=== PATIENT | male | born 1950 | race Caucasian/White ===

== ENCOUNTER 2017-05-06 18:57 | Observation (INO) ==
--- NOTE | 2017-05-06 19:36 | Emergency Department Note ---
Disposition Clinical Impression: Bradycardia, Exertional dyspnea, Intermittent chest pain Disposition: Admitted As Inpatient Condition: Good Referrals: NO,PCP [Non-Partnered Physician] - Forms: ED Satisfaction Letter Chest Pain HPI - General Chief Complaint: ED Chest Pain Stated Complaint: CP/Low Pulse Time Seen by Provider: 05/06/17 19:18 Source: patient, family Limitations: no limitations Vital Signs Reviewed: Yes Nursing Notes Reviewed: Yes - History of Present Illness HPI Narrative: 67-year-old male with a history of an enlarged prostate and borderline diabetes presents to the emergency department with a chief complaint of exertional dyspnea and intermittent chest pain. This has been progressive over the last month and has been significant limiting his ability to perform daily activities. Over the last month he has gotten to the point where even minor activity makes him very short of breath which is completely new. He has intermittent chest tightness without radiation that can occur at rest or with exertion. She denies any radiation of the symptoms. Denies any smoking history or history of COPD. Denies any history of cancer, lung disease or liver disease. Denies any history of blood clots. He reports weight gain and lower extremity swelling without pain over the last month as well. Denies any history of heart attack or heart disease. They checked his heart rate today and it was 37 according to his . His mother has history of heart disease and had to have a pacemaker. Patient states he feels generally weak but not unilaterally. Severity scale (1-10): 3 - Related Data Home Medications Medication Instructions Recorded Confirmed Terazosin HCl 10 mg PO HS 01/03/16 05/06/17 Allergies Allergy/AdvReac Type Severity Reaction Status Date / Time No Known Allergies Allergy Unverified 12/28/15 13:50 All systems ED: reviewed and negative except as stated. Constitutional: Denies: fever, chills Cardiovascular: Reports: chest pain, dyspnea on exertion. Denies: syncope Respiratory: Reports: dyspnea. Denies: cough Gastrointestinal: Denies: abdominal pain, nausea, vomiting Musculoskeletal: Denies: back pain, neck pain Neurological: Denies: headache, weakness, numbness Chest Pain PMH - Past Medical History Medical history: Reports: migraine, other Psychiatric history: Reports: no psych history - Social History Smoking Status: Never smoker Alcohol use: Reports: none Drug use: Reports: none Physical Exam Gen.: Obese male, resting comfortably in bed, talkative and appropriate Cardiovascular: Regular rate and rhythm. S1, S2. mild systolic ejection murmur. No rubs or gallops Respiratory: Breath sounds clear bilaterally. No wheezing, rales or rhonchi. No resp distress Abdomen: Soft, nontender. No guarding, rebound or rigidity. Normal bowel sounds throughout. Eyes: Conjunctiva clear HENT: No oral mucosal lesions. Moist mucous membranes Neuro: Cranial nerves intact. No motor or sensory deficit. Musculoskeletal: Bilateral lower extremity edema, 1+ lower extremities below the knees. There is no asymmetry or calf tenderness Skin: No lesions. No diaphoresis. Normal turgor. Normal color Psych: Appropriate - General Limitations: no limitations General appearance: alert, in no apparent distress Course Course Narrative: 67-year-old male presents with significant exertional dyspnea and chest pain over the last 1-2 months. No known history of coronary or lung disease. On exam he has bilateral lower extremity edema without asymmetry. Mild systolic murmur on exam. His reports checking his heart rate and has been in the 30s today. His mom is a history of CAD and pacemaker placement. EKG shows a heart rate of 56 without any acute changes. Chest x-ray clear. BNP and troponin are not elevated. Labs unremarkable. The concern at this time is symptomatic bradycardia. I discussed with the on-call hospitalist Dr. Bailey who requested d-dimer and this will be added on. Patient will be admitted for telemetry and further managment. Vital Signs Temperature 97.9 F 05/06/17 18:59 Pulse Rate 62 05/06/17 18:59 Respiratory Rate 18 05/06/17 18:59 Blood Pressure 149/77 05/06/17 18:59 O2 Sat by Pulse Oximetry 96 05/06/17 18:59 Temperature 97.9 F 05/06/17 18:59 Pulse Rate 58 05/06/17 20:19 Respiratory Rate 16 05/06/17 20:19 Blood Pressure 160/83 05/06/17 20:19 O2 Sat by Pulse Oximetry 94 05/06/17 20:19 Oxygen Delivery Oxygen Delivery Room Air Chest Pain - Lab Data Result diagrams: 05/06/17 19:42 05/06/17 19:42 Lab Results 05/06/17 05/06/17 05/06/17 Range/Units 19:42 19:42 19:42 WBC 7.2 (4.3-11.1) K/mcL RBC 4.21 (4.19-5.50) M/mcL Hgb 13.6 (12.9-16.9) g/dL Hct 39.5 (37.5-50.1) % MCV 93.8 (83.0-100.0) fL MCH 32.3 (28.0-33.3) pg MCHC 34.4 (31.6-35.5) g/dL RDW 13.3 (11.5-14.5) % Plt Count 159 (140-400) K/mcL MPV 9.8 (9.4-12.4) fL Immature Gran % 0.3 (0-4) % Seg Neutrophils % 61.6 % Lymphocytes % 27.8 % Monocytes % 7.3 % Eosinophils % 2.4 % Basophils % 0.6 % Neutrophils # 4.5 (1.6-8.9) K/mcL Lymphocytes # 2.0 (0.6-4.6) K/mcL Monocytes # 0.5 (0.0-1.3) K/mcL Eosinophils # 0.2 (0.0-0.6) K/mcL Basophils # 0.0 (0.0-0.2) K/mcL Sodium 143 (136-145) mEq/L Potassium 3.5 (3.5-4.5) mEq/L Chloride 109 (98-109) mEq/L Carbon Dioxide 25 (19-29) mEq/L BUN 19 (8-26) mg/dL Creatinine 0.93 (0.72-1.25) mg/dL Est GFR ( Amer) > 60 (> 60) Est GFR (Non-Af Amer) > 60 (> 60) BUN/Creatinine Ratio 20 (6-26) Glucose 89 (70-99) mg/dL Calculated Osmolality 298 (280-300) Calcium 9.0 (8.6-10.8) mg/dL Troponin I (0-0.03) ng/mL B-Natriuretic Peptide 31 (0-100) pg/mL TSH 1.450 (0.350-4.840) mcIU/mL 05/06/17 Range/Units 19:42 WBC (4.3-11.1) K/mcL RBC (4.19-5.50) M/mcL Hgb (12.9-16.9) g/dL Hct (37.5-50.1) % MCV (83.0-100.0) fL MCH (28.0-33.3) pg MCHC (31.6-35.5) g/dL RDW (11.5-14.5) % Plt Count (140-400) K/mcL MPV (9.4-12.4) fL Immature Gran % (0-4) % Seg Neutrophils % % Lymphocytes % % Monocytes % % Eosinophils % % Basophils % % Neutrophils # (1.6-8.9) K/mcL Lymphocytes # (0.6-4.6) K/mcL Monocytes # (0.0-1.3) K/mcL Eosinophils # (0.0-0.6) K/mcL Basophils # (0.0-0.2) K/mcL Sodium (136-145) mEq/L Potassium (3.5-4.5) mEq/L Chloride (98-109) mEq/L Carbon Dioxide (19-29) mEq/L BUN (8-26) mg/dL Creatinine (0.72-1.25) mg/dL Est GFR ( Amer) (> 60) Est GFR (Non-Af Amer) (> 60) BUN/Creatinine Ratio (6-26) Glucose (70-99) mg/dL Calculated Osmolality (280-300) Calcium (8.6-10.8) mg/dL Troponin I 0.01 (0-0.03) ng/mL B-Natriuretic Peptide (0-100) pg/mL TSH (0.350-4.840) mcIU/mL - Radiology Data KG shows sinus bradycardia with
[2017-05-06 19:59] LABS: Basophils % 0.6 %; Eosinophils # 0.2 K/mcL (0.0-0.6); Eosinophils % 2.4 %; Hematocrit 39.5 % (37.5-50.1); Hemoglobin 13.6 g/dL (12.9-16.9); Immature Granulocytes % 0.3 % (0-4); Lymphocytes % 27.8 %; Mean Corpuscular HGB Conc 34.4 g/dL (31.6-35.5); Mean Corpuscular Hemoglobin 32.3 pg (28.0-33.3); Mean Corpuscular Volume 93.8 fL (83.0-100.0); Mean Platelet Volume 9.8 fL (9.4-12.4); Monocytes # 0.5 K/mcL (0.0-1.3); Monocytes % 7.3 %; Neutrophils # 4.5 K/mcL (1.6-8.9); Platelet Count 159 K/mcL (140-400); Red Blood Count 4.21 M/mcL (4.19-5.50); Red Cell Distribution Width 13.3 % (11.5-14.5); Segmented Neutrophils % 61.6 %
[2017-05-06 20:06] LABS: BUN/Creatinine Ratio 20 (6-26); Blood Urea Nitrogen 19 mg/dL (8-26); Carbon Dioxide 25 mEq/L (19-29); Chloride 109 mEq/L (98-109); Glucose 89 mg/dL (70-99); Osmolality,Calculated 298 (280-300); Potassium 3.5 mEq/L (3.5-4.5); Sodium 143 mEq/L (136-145); eGFR For African Americans > 60 (> 60); eGFR For Non-African Americans > 60 (> 60)
--- NOTE | 2017-05-06 21:13 | Emergency Department Note ---
START Narrative - START START: I examined this patient and my medical decision-making was reviewed with the COMMISSION SALES ASSOCIATE/PA/Advanced Practice Nurse/Resident Physician. I agree with the documented findings, disposition and treatment plan as described except to the extent set forth below. ED attending note: Patient seen with emergency medicine resident Dr. Knox. Please see a copy of his note for details of the H&P, evaluation, management and disposition of this patient. We independently had [id number] contact with the patient Briefly: This 57-year-old male no prior history of coronary artery disease or atherosclerotic disease presents with leg swelling fatigue and dyspnea on exertion. Has systolic ejection murmur. EKG shows nonspecific ST-T changes. Troponins negative he has been bradycardic down into the 30s and has family members have had similar problems in needed pacemaker. Patient is some mild chest discomfort at this time. But hemodynamically stable aside from his low heart rate. TSH is pending. Plan is to admit for symptomatically bradycardia and workup for possible aortic stenosis among other cardiac conditions and rule out myocardial infarction or acute coronary syndrome. Provided 45 minutes of critical care services this patient.
[2017-05-06] MEDS ORDERED: Acetaminophen 325 MG TABLET PO PRN (23:34)
[2017-05-06] MEDS ORDERED: Naloxone 0.4 MG/ML INJ IVP PRN (23:34)
[2017-05-06] MEDS ORDERED: Ketorolac 30 MG/ML VIAL IVP PRN (23:34)
[2017-05-06] MEDS ORDERED: Ondansetron 4 MG/2 ML VIAL IVP PRN (23:34)
[2017-05-06] MEDS ORDERED: Nitroglycerin 0.4 MG TAB.SUBL SL PRN (23:41)
[2017-05-06] MEDS ORDERED: Ipratropium/Albuterol Neb 3 ML IH PRN (23:41)
--- NOTE | 2017-05-06 23:44 | Internal Med History&Physical ---
Date of Encounter: 05/06/17 Time of Encounter: 23:44 Assessment and Plan (1) CHF (congestive heart failure) Current visit: Yes Status: Acute Acute mild CHF exacerbation diastolic versus systolic Strict I's and O's and daily weight Lasix IV, echocardiogram in the morning Omeprazole for GI prophylaxis and subcutaneous heparin for DVT prophylaxis Patient will be admitted for observation. Full code. Time spent on this admission 40 minutes. Qualifiers: Congestive heart failure type: unspecified congestive heart failure type Congestive heart failure chronicity: acute Qualified Code(s): I50.9 - Heart failure, unspecified (2) Intermittent chest pain Current visit: Yes Status: Acute Schedule a stress test for the morning Aspirin, Lipitor, check lipid panel, follow troponins, continue telemetry (3) Bradycardia Current visit: Yes Status: Acute Unlikely symptomatic bradycardia, monitor (4) BPH (benign prostatic hyperplasia) Current visit: Yes Status: Acute May resume Terazosin Qualifiers: Prostatic enlargement morphology: unspecified morphology Lower urinary tract symptom presence: presence of symptoms unspecified Qualified Code(s): N40.0 - Benign prostatic hyperplasia without lower urinary tract symptoms (5) Neuropathy Current visit: Yes Status: Acute (6) Obstructive sleep apnea Current visit: Yes Status: Acute CPAP Internal Medicine - H&P: HPI Chief complaint: Shortness of breath and chest pain Admitted From: Emergency Dept History of present illness: Mr. Pyle is a 67 year old male with a past medical history of morbid obesity, BPH, borderline diabetes, neuropathy, obstructive sleep apnea, came to the emergency room complaining of chest pain that started 1-2 months ago accompanied by shortness of breath. Patient mentions that he has been having chest pressure 3 out of 10 in intensity with no radiation, worse on exertion. His legs have become very swollen in the past few months. Chest x-ray does not show any acute cardiopulmonary disease. The note from the ER says that the patient's told the ER physician that his heart rate was 37 but the patient mentions that the lowest heart rate recorded at home was 46. EKG shows sinus bradycardia with a heart rate of 56 and no other abnormalities. Patient's blood pressure is 160/83. He is asymptomatic otherwise. Complains of mild shortness of breath and chest pressure still Past Med Surg Social Fam HX - Past Medical History Medical history: CHF (Diastolic versus systolic), migraine, other (BPH, borderline diabetes, migraines, erectile dysfunction, obesity, neuropathy, obstructive sleep apnea using CPAP) Psychiatric history: no psych history - Past Surgical History Surgical History: cholecystectomy, herniorrhaphy, other (Hernia repair, right leg fracture, left rotator cuff surgery,) - Social History Smoking Status: Never smoker Smokeless Tobacco Status: No Alcohol use: none Drug use: none - Family History Mother Hx Family Cardiac Disorders: Yes (pacer) Father Family Member Ethnicity: Non- Living Status: - Additional Family History Additional family history: Mother with CAD and pacemaker Internal Medicine - H&P: Meds Terazosin HCl 10 mg PO HS 01/03/16 [History] Allergies No Known Allergies Allergy (Unverified 12/28/15 13:50) All Systems PM: A 10-system review of systems was performed and is negative for pertinent findings except as documented above in the HPI. Review of systems: Has been very fatigued lately, denies any other complaints other than the ones as stated in the history of present illness. Other systems out of the 10 reviewed were negative - Constitutional Vitals: Temp Pulse Resp BP Pulse Ox 98.1 F 54 16 164/83 95 05/06/17 22:52 05/06/17 22:52 05/06/17 22:52 05/06/17 22:52 05/06/17 22:52 General appearance: Present: A&O X 3, morbidly obese - Head Head exam: Present: atraumatic, normocephalic - Eye Eye exam: Present: PERRL, conjuntiva pink, sclera anicteric Pupils: Present: PERRL - Neck Neck exam general surgery: Present: supple, trachea midline. Absent: lymphadenopathy - Respiratory Respiratory exam: Present: CTAB, rales (Fine bibasilar crackles, no wheezing). Absent: accessory muscle use, rhonchi, wheezes - Cardiovascular Cardiovascular exam: Present: RRR, +S1, +S2. Absent: diastolic murmur, gallop, rubs, systolic murmur - GI/Abdominal GI/Abdominal exam: Present: distended (Obese), normal bowel sounds, soft, no peritoneal signs. Absent: tenderness - Extremities Exam Extremities exam: Present: pedal edema (Plans 1 pitting edema), warm, radial pulses palpable and symetrical. Absent: calf tenderness, cyanotic - Neurological Exam Neurological exam: Present: CN II-XII intact, oriented X3, no focal deficits. Absent: pronater drift, facial droop, speech deficit - Skin Skin exam: Present: dry, intact Internal Med - H&P Results - Labs CBC & Chem 7: 05/06/17 19:42 05/06/17 19:42
[2017-05-07] MEDS: *HR* Heparin 5,000 UNIT/ML VIAL SQ SCH ×4 (00:26→20:11)
[2017-05-07] MEDS: Aspirin Enteric Coated 325 MG Tablet PO SCH ×2 (00:26→10:44)
[2017-05-07] MEDS: Furosemide 40 MG/4 ML VIAL IVP SCH ×3 (00:27→20:11)
[2017-05-07 02:31] LABS: Hemoglobin A1C 5.7 %
[2017-05-07 02:40] LABS: BUN/Creatinine Ratio 17 (6-26); Blood Urea Nitrogen 19 mg/dL (8-26); Calcium 9.5 mg/dL (8.6-10.8); Carbon Dioxide 28 mEq/L (19-29); Chloride 105 mEq/L (98-109); Chol/HDL Ratio 4.6 (0-4.9); Cholesterol 178 mg/dL (< 200); Glucose 114 mg/dL (70-99); HDL Cholesterol 39 mg/dL (40-59); LDL Cholesterol,Calculated 104 mg/dL (0-99); Osmolality,Calculated 301 (280-300); Potassium 3.4 mEq/L (3.5-4.5); Sodium 144 mEq/L (136-145); Triglycerides 173 mg/dL (< 150); eGFR For African Americans > 60 (> 60); eGFR For Non-African Americans > 60 (> 60)
[2017-05-07] MEDS ORDERED: Regadenoson 0.4 MG/5 ML SYRINGE IVP ONE (06:32)
[2017-05-07] MEDS ORDERED: Perflutren Lipid Microsphere 1.3 ML in 0.9 % Sodium Chloride 8.7 ML IVP ONE (09:53)
--- NOTE | 2017-05-07 10:42 | Electrocardiograph Report ---
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
--- NOTE | 2017-05-07 15:50 | Internal Med Progress Note ---
Date of Encounter: 05/07/17 Time of Encounter: 13:00 - Assessment and plan (1) Intermittent chest pain Current Visit: Yes Status: Acute Assessment and plan: Patient currently denies chest pain or shortness of breath. Acute diastolic heart failure, diuresing. Echocardiogram revealing ejection fraction of 60% and mild diastolic dysfunction. He appears mildly fluid overloaded on examination. Chest x-ray negative. Troponins negative 3. Second part of stress test tomorrow. (2) CHF (congestive heart failure) Current Visit: Yes Status: Acute Assessment and plan: Echocardiogram consistent with new onset of diastolic heart failure. Patient appears mildly fluid overloaded on examination with 1+ pitting edema bilaterally and shortness of breath with exertion. We will continue diuresing. Renal functioning is remained stable. Educated the patient and his on 2 L fluid restricted diet as well as sodium restriction. Patient stating he likes to eat chips, saltine crackers, and several other unhealthy snacks. His became very tearful and upset and was a bit on the histrionic side and explaining why her lifestyle and her personal dietary choices are superior to her 's and states that she has been trying tirelessly for the past several years to get him to change his lifestyle changes. Educated that guilt trips are typically ineffective and recommended changing tactic to more of a supportive environment- continued to berate the patient incessantly. We will continue with education while admitted. Echocardiogram with imaging enhancement agent impressions: LVEF 60%. Mild left ventricular diastolic dysfunction. Definity echo contrast was used. Suboptimal PLAX measurements. Visually, LV size and wall thickness appeared normal. RV is not well-visualized. Valves are suboptimally visualized. No evidence for dysfunction by Doppler. No significant TR gradient estimate RVSP. IVC is not visualized. (3) Borderline diabetes Current Visit: Yes Status: Chronic Assessment and plan: A1c 5.7%, continue lifestyle changes (4) HLD (hyperlipidemia) Current Visit: Yes Status: Acute Assessment and plan: It also does not appear as if the patient has been diagnosed with hyperlipidemia in the past. Triglycerides 173, rest of lipid panel borderline abnormal. Recommend lifestyle changes. Possible addition of a statin, second part of stress test tomorrow (5) HTN (hypertension) Current Visit: Yes Status: Acute Assessment and plan: Patient is not on any antihypertensive medications at home. Reviewed his chart in [facility] and I did not see her prior diagnosis of hypertension. He is currently normotensive without the use of antihypertensive medications other than furosemide. We will continue to trend and add medications as indicated. (6) Bradycardia Current Visit: Yes Status: Acute Assessment and plan: Telemetry reviewed since admission. Minimal heart rate 42, asymptomatic. We will continue to monitor telemetry and trend. (7) BPH (benign prostatic hyperplasia) Current Visit: Yes Status: Chronic Assessment and plan: Continue terazosin Qualifiers: Prostatic enlargement morphology: unspecified morphology Lower urinary tract symptom presence: presence of symptoms unspecified Qualified Code(s): N40.0 - Benign prostatic hyperplasia without lower urinary tract symptoms (8) Neuropathy Current Visit: Yes Status: Chronic (9) Obstructive sleep apnea Current Visit: Yes Status: Chronic Assessment and plan: Endorses compliance with CPAP (10) Morbid obesity with BMI of 40.0-44.9, adult Current Visit: Yes Status: Chronic - Time Spent With Patient Greater than 35 minutes (HF teaching with fluid and sodium restricted diets) - Subjective Interval history: Patient seen and examined. On examination, patient resting supine in bed. Patient denies pain or shortness of breath at this time. His is at the bedside and has multiple questions and concerns. - Constitutional Vitals: Temp Pulse Resp BP Pulse Ox 97.5 F L 52 16 122/74 95 05/07/17 15:22 05/07/17 15:22 05/07/17 15:22 05/07/17 15:22 05/07/17 15:22 General appearance: Present: A&O X 3, morbidly obese, pleasant, no acute distress, answers questions appropriately - Head Head exam: Present: atraumatic, normocephalic - Eye Eye exam: Present: PERRL, conjuntiva pink, sclera anicteric Pupils: Present: PERRL - Neck Neck exam general surgery: Present: supple, trachea midline. Absent: lymphadenopathy - Respiratory Respiratory exam: Present: CTAB. Absent: accessory muscle use, rales, respiratory distress, rhonchi, wheezes - Cardiovascular Cardiovascular exam: Present: RRR, +S1, +S2. Absent: diastolic murmur, gallop, rubs, systolic murmur - GI/Abdominal GI/Abdominal exam: Present: normal bowel sounds, soft, no peritoneal signs. Absent: distended, tenderness - Extremities Exam Extremities exam: Present: pedal edema (1+ bilaterally), warm, radial pulses palpable and symetrical. Absent: calf tenderness, cyanotic - Neurological Exam Neurological exam: Present: alert, CN II-XII intact, oriented X3, no focal deficits, strengths equal and symetr throughout. Absent: pronater drift, facial droop, speech deficit - Skin Skin exam: Present: dry, intact, normal color, warm Internal Medicine: Result - Labs CBC & Chem 7: 05/06/17 19:42 05/07/17 01:06 Labs: BMP 05/07/17 01:06 Sodium 144 Potassium 3.4 L Chloride 105 Carbon Dioxide 28 BUN 19 Creatinine 1.14 Glucose 114 H Calcium 9.5 Cardiac Enzymes 05/07/17 05/07/17 05/07/17 Range/Units 01:06 04:49 11:24 Troponin I 0.01 0.02 0.00 (0-0.03) ng/mL - ABG Interpretation ABG results: PT/INR, D-dimer D-Dimer 509 ng/mLFEU (0-500) H 05/06/17 19:42 Consult Discharge Plan - Plan Referrals: Chelly Rosa CNP [Primary Care Provider] - 05/19/17 9:45 am
[2017-05-08] MEDS: *HR* Heparin 5,000 UNIT/ML VIAL SQ SCH (05:44)
[2017-05-08 06:39] LABS: BUN/Creatinine Ratio 20 (6-26); Blood Urea Nitrogen 20 mg/dL (8-26); Carbon Dioxide 29 mEq/L (19-29); Chloride 103 mEq/L (98-109); Glucose 107 mg/dL (70-99); Osmolality,Calculated 293 (280-300); Potassium 3.8 mEq/L (3.5-4.5); Sodium 140 mEq/L (136-145); eGFR For African Americans > 60 (> 60); eGFR For Non-African Americans > 60 (> 60)
--- NOTE | 2017-05-08 07:59 | Nuclear Medicine Stress Report ---
Regadenoson Nuclear 2 Name: Ismael Pyle Date of Study: 05/07/2017 Date: 1950 Ht: 69.0 in Medical Record#: [id number] Age: 67 Wt: 285.0 lb Gender: Male Order #: [id number] [facility] Supervising Provider: Michael Richardson CNP Reading Physician: Alex Figueroa MD, [facility] Ordering Physician: Davida Mukherjee CNP Primary Care Physician: Chelly Rosa CNP Stress Technologist: Sudha Deluna, [employer], CCT, CPFT Bar Examiner: Marilou Mortensen Indications: Chest Pain Impression: Gated LVEF = 63%. Perfusion imaging was negative for ischemia or infarct. Stress Test Summary: Stress Test Type: Pharmacologic Baseline Information: Initial Heart Rate: 55 Blood Pressure: 130/82 Stress Information: Test Terminated Due to (primary): As per protocol Maximum Blood Pressure: 140/64 Maximum Heart Rate: 84 Percent Maximum Heart Rate Achieved: 55 Double Product: [id number] Symptoms: Shortness of breath, Nausea Nuclear Summary: SPECT myocardial perfusion imaging using Tc99m Sestamibi given intravenously was performed at rest and following cardiac stress testing. The resting images were obtained following initial dose of 35.0 mCi. Following stress an additional dose of 35.6 mCi was given at peak exercise or 30 seconds post regadenoson infusion. Findings: Stress Note * Resting ECG demonstrated sinus bradycardia. * No baseline arrhythmias were noted. * Patient had no chest pain during stress. * No arrhythmias were noted during stress. * No significant ECG changes with regadenoson. Hemodynamic responses * Normal hemodynamic responses to pharmacologic stress. Study Quality * Study quality is average. Gated EF % * Gated LVEF = 63%. Left Ventricle * The left ventricle is not dilated. * Normal Segmental Perfusion in rest. * Normal segmental perfusion in stress. * Inferior artifact noted. TID * No evidence of transient ischemic dilatation. Updated by Alex Figueroa MD, [facility] on 05/08/2017 7:54:16 AM electronically signed on 05/08/2017 7:55:02 AM with status of Final
[2017-05-08] MEDS: Aspirin Enteric Coated 325 MG Tablet PO SCH (08:11)
[2017-05-08] MEDS: Furosemide 40 MG/4 ML VIAL IVP SCH (08:11)
[2017-05-08 11:01] VITALS: BP 117/67
--- NOTE | 2017-05-08 12:44 | Discharge Summary ---
Date of Encounter: 05/08/17 Time of Encounter: 10:00 - Discharge Diagnosis (1) Intermittent chest pain Priority: Primary Status: Resolved Comments: Patient denied chest pain or shortness of breath. Acute diastolic heart failure , successfully diuresed. Echocardiogram revealing ejection fraction of 60% and mild diastolic dysfunction. He appears mildly fluid overloaded on examination. Chest x-ray negative. Troponins negative 3. Stress test negative. ACS ruled out. (2) CHF (congestive heart failure) Priority: Primary Status: Acute Comments: Echocardiogram consistent with new onset of diastolic heart failure. Successfully diuresed and the patient will need continued education moving forward. (3) Borderline diabetes Priority: Secondary Status: Chronic Comments: A1c 5.7%, continue lifestyle changes (4) HLD (hyperlipidemia) Priority: Primary Status: Acute Comments: It also does not appear as if the patient has been diagnosed with hyperlipidemia in the past. Triglycerides 173, rest of lipid panel borderline abnormal. Recommend lifestyle changes. Will defer statin initiation to his primary care team. (5) HTN (hypertension) Priority: Primary Status: Acute Comments: Patient is not on any antihypertensive medications at home (other than his terazosin for his BPH). Reviewed his chart in [facility] and I did not see her prior diagnosis of hypertension. He remained normotensive after admission without the use of antihypertensive medications other than furosemide. Recommend daily blood pressure checks at home, keeping a log, and following up outpatient. (6) Bradycardia Priority: Primary Status: Resolved Comments: Telemetry reviewed since admission. Minimal heart rate 42, asymptomatic. Patient and family concerned as the patient's mother had the same symptoms at the age of 88 and required a pacemaker. No significant positives or significant bradycardic episodes during his 2 night admission. Follow-up outpatient. (7) BPH (benign prostatic hyperplasia) Priority: Secondary Status: Chronic Qualifiers: Prostatic enlargement morphology: unspecified morphology Lower urinary tract symptom presence: presence of symptoms unspecified Qualified Code(s): N40.0 - Benign prostatic hyperplasia without lower urinary tract symptoms (8) Neuropathy Priority: Secondary Status: Chronic (9) Obstructive sleep apnea Priority: Secondary Status: Chronic (10) Morbid obesity with BMI of 40.0-44.9, adult Priority: Secondary Status: Chronic (11) Erectile dysfunction Priority: Primary Status: Acute Comments: Patient and his are having issues with intimacy secondary to the patient's erectile dysfunction. I will have him follow-up with his urologist, he states it is been several years since he has seen his urologist. - Discharge Medications Prescriptions: clonazePAM [Clonazepam] 0.25 mg PO BID PRN #14 tab.rapdis PRN Reason: Anxiety Furosemide [Lasix] 20 mg PO DAILY #30 tablet Home Medications: Terazosin HCl 10 mg PO HS 01/03/16 [History] Furosemide [Lasix] 20 mg PO DAILY #30 tablet 05/08/17 [Rx] clonazePAM [Clonazepam] 0.25 mg PO BID PRN #14 tab.rapdis 05/08/17 [Rx] Allergies/Adverse Reactions: Allergies No Known Allergies Allergy (Unverified 12/28/15 13:50) Procedures/tests Complete & Pending: Procedures Performed prior 72 hours Category Date Time Status NM dago perf SPECT multi [NM] Routine Exams 05/06/17 23:39 Taken EV echocardiogram w enhance Routine Y 05/07/17 23:34 Completed SP pharm nuclear stress Routine Y 05/07/17 07:45 Completed Date of admission: 05/06/17 21:47 Primary care physician: Chelly Rosa CNP Consults: 05/06/17 23:34 Consult to Nurse Navigator [CONS] Routine Comment: Discharging clinician: Davida Mukherjee Anticipated date of discharge: 05/08/17 - Patient Status Disposition: Home, Self-Care Condition: Good Functional capacity at discharge: independent ambulation Overall status at discharge: patient is back to baseline - Discharge Instructions Follow Up With: Chelly Rosa CNP [Primary Care Provider] - 05/19/17 9:45 am [facility] [Provider Group] Additional Instructions: Follow-up with primary care provider as scheduled. Consider follow-up with urologist regarding intimacy issues. - Diet and Activity Activity: increase activity as tolerated, resume usual activities as tolerated Diet: diabetic diet, low fat, low cholesterol (fluid restriction 2L per day ( roughly 65 ounces)), low salt diet Hospital course: Mr. Pyle is a 67 year old male with past medical history of BPH, borderline diabetes, neuropathy, ELEUTERIO on CPAP, morbid obesity. Patient presented to the emergency department chief complaint of chest pain that started 1-2 months prior to presentation and is associated with shortness of breath. Patient endorsing chest pressure without radiation that is worse with exertion. He also states that his legs have become very swollen over the past several months prior to presentation. Patient's also reporting that his heart rate was low. Workup in the emergency department unremarkable. Chest x-ray negative. Patient was admitted to the hospitalist service for further evaluation and management. Patient was diuresed with IV furosemide and his pedal edema has lessened as did his shortness of breath with exertion. Echocardiogram consistent with new diastolic dysfunction with preserved ejection fraction. Regarding his chest pain, his troponins were negative 3 and he had a 2 day stress test that was negative for ischemia or infarct. ACS was ruled out. Likely acute on chronic onset of diastolic heart failure. Patient and his family were educated at length during this admission. Of note, the patient's is extremely anxious. The patient also states that he gets very anxious and aggravated. He states that he lets his anger and anxiety build which causes his to stress eat and increases his stress. He and his also endorsed intimacy problems and he has been instructed to follow-up with his urologist that he has not seen in quite some time. He was started on low-dose clonazepam. Diabetes still remains borderline with A1c of 5.7%. Patient was mildly hyperlipidemic with triglycerides at 173, recommend lifestyle changes and follow-up outpatient with his primary care provider. Patient was hypertensive upon arrival but was normotensive throughout this admission. He was started on furosemide. Regarding his alleged bradycardia, his telemetry was reviewed throughout this admission the minimal heart rate was 42, brief, and he was asymptomatic. Patient's is upset because the patient's mother had to have a pacemaker placed at age 88 for bradycardia. Recommend follow-up outpatient, no acute intervention indicated during this admission. Patient's was noted to be histrionic, extremely emotional. She too would benefit from further education moving forward. He was discharged home in stable condition with close outpatient follow-up recommended. ITS Impressions Chest X-Ray 05/06/17 19:31 IMPRESSION: No acute process. D/ / Remy Loera MD / Remy Loera MD Interpreting Provider: Remy Loera MD Echocardiogram with imaging enhancement agent impressions: LVEF 60%. Mild left ventricular diastolic dysfunction. Definity echo contrast was used. Suboptimal PLAX measurements. Visually, LV size and wall thickness appeared normal. RV is not well-visualized. Valves are suboptimally visualized. No evidence for dysfunction by Doppler. No significant TR gradient estimate RVSP. IVC is not visualized. Regadenosen two day nuclear stress test impression: Gated LVEF equals 63%. Perfusion imaging was negative for ischemia or infarct. - Time Spent with Patient Total time spent providing and/or coordinating discharge services: - Constitutional Vitals: Temp Pulse Resp BP Pulse Ox 97.8 F 66 17 117/67 96 05/08/17 11:01 05/08/17 11:01 05/08/17 11:01 05/08/17 11:01 05/08/17 11:01 General appearance: Present: A&O X 3, morbidly obese, pleasant, no acute distress, answers questions appropriately - Head Head exam: Present: atraumatic, normocephalic - Eye Eye exam: Present: PERRL, conjuntiva pink, sclera anicteric Pupils: Present: PERRL - Neck Neck exam general surgery: Present: supple, trachea midline. Absent: lymphadenopathy - Respiratory Respiratory exam: Present: CTAB. Absent: accessory muscle use, rales, respiratory distress, rhonchi, wheezes - Cardiovascular Cardiovascular exam: Present: RRR, +S1, +S2. Absent: diastolic murmur, gallop, rubs, systolic murmur - GI/Abdominal GI/Abdominal exam: Present: normal bowel sounds, soft, no peritoneal signs. Absent: distended, tenderness - Extremities Exam Extremities exam: Present: warm, radial pulses palpable and symetrical. Absent : calf tenderness, cyanotic, pedal edema - Neurological Exam Neurological exam: Present: alert, CN II-XII intact, normal gait, oriented X3, no focal deficits, strengths equal and symetr throughout. Absent: pronater drift, facial droop, speech deficit - Skin Skin exam: Present: dry, intact, normal color, warm
== END 2017-05-08 13:20 | disposition home or self-care (01) ==
LOC: EMEROO 18:57 → 3BNU 18:57
PROVIDERS: ADMIT Internal Medicine; ATTEND Nurse Practitioner Family

== ENCOUNTER 2017-07-06 01:25 | Inpatient (IN) ==
[2017-07-06] MEDS ORDERED: Ondansetron 4 MG/2 ML VIAL IVP ONE (01:50)
[2017-07-06] MEDS ORDERED: *HR* HYDROmorphone (PF) 1 MG/ML SYRINGE IVP ONE ×3 (01:50→04:58)
[2017-07-06 02:30] LABS: Basophils # 0.1 K/mcL (0.0-0.2); Basophils % 0.5 %; Eosinophils % 0.3 %; Hematocrit 43.3 % (37.5-50.1); Hemoglobin 14.6 g/dL (12.9-16.9); Immature Granulocytes % 0.5 % (0-4); Lymphocytes # 1.2 K/mcL (0.6-4.6); Lymphocytes % 9.7 %; Mean Corpuscular HGB Conc 33.7 g/dL (31.6-35.5); Mean Corpuscular Hemoglobin 31.5 pg (28.0-33.3); Mean Corpuscular Volume 93.3 fL (83.0-100.0); Mean Platelet Volume 9.6 fL (9.4-12.4); Monocytes # 0.7 K/mcL (0.0-1.3); Monocytes % 5.5 %; Neutrophils # 10.7 K/mcL (1.6-8.9); Platelet Count 211 K/mcL (140-400); Red Blood Count 4.64 M/mcL (4.19-5.50); Red Cell Distribution Width 13.2 % (11.5-14.5); Segmented Neutrophils % 83.5 %
--- NOTE | 2017-07-06 02:33 | Emergency Department Note ---
Disposition Clinical Impression: Small bowel obstruction, Elevated serum lactate dehydrogenase Disposition: Admitted As Inpatient Condition: Fair Time of Disposition: 04:39 Abdominal Pain HPI - General Chief Complaint: ED Abdominal Pain Stated Complaint: abdominal pain Time Seen by Provider: 07/06/17 01:30 Source: patient, EMS Mode of arrival: EMS Limitations: no limitations Nursing Notes Reviewed: Yes Vital Signs Reviewed: Yes - History of Present Illness HPI Narrative: Patient is a 67-year-old male who presents to [facility] ED with a chief complaint of abdominal pain. States his symptoms started approximately 3 hours ago. States it was a sharp stabbing pain in the middle of his abdomen. His states he was clutching his chest when she first saw him. Denies any nausea, vomiting, fever or chills. States he ate a normal meal earlier on in the night and tolerated it without difficulty. Denies any problems with urination or bowel movements leading up to this. Past medical history significant for prior abdominal hernias in which she had a repair done by Dr. posada followed by a revision of the ventral hernia done in December 2015. States after his initial repair, he had a complication of small bowel obstruction. States today he feels similar to that. Pt Subjective Complaint: abdominal pain Onset (ago): hour(s) Consistency: Worsening Location: diffuse, periumbilical, epigastric Pain Severity: severe Pain Scale: 9 Quality: stabbing, aching Radiation: none Migration to: no migration Improves with: nothing Worsens with: nothing Context: history of similar episodes Associated symptoms: Denies: nausea, vomiting, fever, chills, constipation, dysuria Treatments prior to arrival: none - Related Data Home Medications Medication Instructions Recorded Confirmed Terazosin HCl 10 mg PO HS 01/03/16 05/06/17 Previous Rx's Medication Instructions Recorded Furosemide [Lasix] 20 mg PO DAILY #30 tablet 05/08/17 clonazePAM [Clonazepam] 0.25 mg PO BID PRN #14 tab.rapdis 05/08/17 Allergies Allergy/AdvReac Type Severity Reaction Status Date / Time No Known Allergies Allergy Unverified 12/28/15 13:50 All systems ED: reviewed and negative except as stated. Abdominal Pain PMH - Past Medical History Medical history: Reports: CHF, migraine, other Psychiatric history: Reports: no psych history - Social History Smoking status: Never smoker Alcohol use: Reports: none Drug use: Reports: none Physical Exam - General Limitations: no limitations General appearance: alert, in no apparent distress - Head Head exam: atraumatic, normocephalic, normal inspection - Eye Eye exam: Present: normal appearance, EOMI - ENT ENT exam: normal exam, normal oropharynx, mucous membranes moist - Neck Neck exam: Present: normal inspection, full ROM, trachea midline - Chest Chest inspection: Present: normal inspection, symmetric chest wall rise - Respiratory Respiratory exam: Present: normal lung sounds bilaterally - Cardiovascular Cardiovascular exam: Present: regular rate, normal rhythm, normal heart sounds - Abdominal Exam Abdominal exam: Present: soft, tenderness, hyperactive bowel sounds. Absent: distention, guarding, rebound, rigidity Abdominal tenderness: Present: diffuse, severe - Extremities Exam Extremities exam: Present: normal inspection, full ROM. Absent: tenderness, pedal edema - Back Exam Back exam: Present: normal inspection, full ROM. Absent: tenderness - Neurological Exam Neurological exam: Present: alert - Psychiatric Psychiatric exam: Present: normal affect, normal mood - Skin Skin exam: Present: warm, dry, intact, normal color Course Course Narrative: Patient seen and examined. Severe abdominal pain for the last 3 hours. Has a history of prior ventral hernias that were repaired by Dr. Posada. Also has had prior small bowel obstruction. Abdominal pain workup ordered along with CT abdomen and pelvis with IV contrast. - Reevaluation(s) Reevaluation #1: Labs show lactic acid of 3.1, leukocytosis. I spoke with surgeon Dr. posada who will see patient in consult. States to admit the patient to the hospitalist in due decompression. NG tube ordered. Time: 04:30 Vital Signs Temperature 98.0 F 07/06/17 01:30 Pulse Rate 58 07/06/17 01:30 Respiratory Rate 20 07/06/17 01:30 Blood Pressure 158/85 07/06/17 01:30 O2 Sat by Pulse Oximetry 97 07/06/17 01:30 Temperature 98.0 F 07/06/17 01:30 Pulse Rate 72 07/06/17 03:03 Respiratory Rate 18 07/06/17 05:11 Blood Pressure 125/72 07/06/17 05:11 O2 Sat by Pulse Oximetry 93 07/06/17 03:03 Oxygen Delivery Oxygen Delivery Room Air Abdominal Pain - Medical Records Medical records reviewed: Yes I reviewed the patient's medical records. - Lab Data Lab results reviewed: Yes I reviewed the patient's lab results. Result diagrams: 07/06/17 02:22 07/06/17 02:22 Lab Results 07/06/17 07/06/17 07/06/17 Range/Units 02:22 02:22 02:22 WBC 12.8 H (4.3-11.1) K/mcL RBC 4.64 (4.19-5.50) M/mcL Hgb 14.6 (12.9-16.9) g/dL Hct 43.3 (37.5-50.1) % MCV 93.3 (83.0-100.0) fL MCH 31.5 (28.0-33.3) pg MCHC 33.7 (31.6-35.5) g/dL RDW 13.2 (11.5-14.5) % Plt Count 211 (140-400) K/mcL MPV 9.6 (9.4-12.4) fL Immature Gran % 0.5 (0-4) % Seg Neutrophils % 83.5 % Lymphocytes % 9.7 % Monocytes % 5.5 % Eosinophils % 0.3 % Basophils % 0.5 % Neutrophils # 10.7 H (1.6-8.9) K/mcL Lymphocytes # 1.2 (0.6-4.6) K/mcL Monocytes # 0.7 (0.0-1.3) K/mcL Eosinophils # 0.0 (0.0-0.6) K/mcL Basophils # 0.1 (0.0-0.2) K/mcL Immature Plt Fraction 2.0 (1.1-6.1) % PT 11.9 (9.4-12.1) Seconds INR 1.1 APTT 28.3 (26.0-36.0) Seconds Sodium 142 (136-145) mEq/L Potassium 3.5 (3.5-4.5) mEq/L Chloride 104 (98-109) mEq/L Carbon Dioxide 25 (19-29) mEq/L BUN 19 (8-26) mg/dL Creatinine 1.19 (0.72-1.25) mg/dL Est GFR ( Amer) > 60 (> 60) Est GFR (Non-Af Amer) > 60 (> 60) BUN/Creatinine Ratio 16 (6-26) Glucose 169 H (70-99) mg/dL Calculated Osmolality 300 (280-300) Lactic Acid (0.5-2.2) mmol/L Calcium 9.7 (8.6-10.8) mg/dL Total Bilirubin 0.8 (0.2-1.2) mg/dL Direct Bilirubin 0.3 (0.0-0.5) mg/dL Indirect Bilirubin 0.5 (0.0-1.2) mg/dL AST 20 (5-34) Units/L ALT 18 (0-55) Units/L Alkaline Phosphatase 54 (38-126) Units/L Troponin I (0-0.03) ng/mL Serum Total Protein 7.5 (6.0-8.3) g/dL Albumin 3.9 (3.5-5.0) g/dL Globulin 3.6 H (2.4-3.5) g/dL Albumin/Globulin Ratio 1.1 (1.1-2.2) Lipase 24 (8-78) Units/L Urine Color (Yellow) Urine Clarity (Clear) Urine pH (5.0-8.0) pH Units Ur Specific [place] (1.010-1.025) Urine Protein (Neg-Trace) mg/dL Urine Glucose (UA) (Normal) mg/dL Urine Ketones (Negative) mg/dL Urine Blood (Negative) Urine Nitrite (Negative) Urine Bilirubin (Negative) Urine Urobilinogen (Normal) mg/dL Ur Leukocyte Esterase (Negative) Urine Microscopic RBC (0-3) per hpf Urine Microscopic WBC (0-3) per hpf Ur Squamous Epith Cells (None-Few) per lpf Urine Bacteria (None-Few) per hpf Hyaline Casts (None-Few) per lpf Ur Culture Indicated? (NO) 07/06/17 07/06/17 07/06/17 Range/Units 02:22 02:22 03:54 WBC (4.3-11.1) K/mcL RBC (4.19-5.50) M/mcL Hgb (12.9-16.9) g/dL Hct (37.5-50.1) % MCV (83.0-100.0) fL MCH (28.0-33.3) pg MCHC (31.6-35.5) g/dL RDW (11.5-14.5) % Plt Count (140-400) K/mcL MPV (9.4-12.4) fL Immature Gran % (0-4) % Seg Neutrophils % % Lymphocytes % % Monocytes % % Eosinophils % % Basophils % % Neutrophils # (1.6-8.9) K/mcL Lymphocytes # (0.6-4.6) K/mcL Monocytes # (0.0-1.3) K/mcL Eosinophils # (0.0-0.6) K/mcL Basophils # (0.0-0.2) K/mcL Immature Plt Fraction (1.1-6.1) % PT (9.4-12.1) Seconds INR APTT (26.0-36.0) Seconds Sodium (136-145) mEq/L Potassium (3.5-4.5) mEq/L Chloride (98-109) mEq/L Carbon Dioxide (19-29) mEq/L BUN (8-26) mg/dL Creatinine (0.72-1.25) mg/dL Est GFR ( Amer) (> 60) Est GFR (Non-Af Amer) (> 60) BUN/Creatinine Ratio (6-26) Glucose (70-99) mg/dL Calculated Osmolality (280-300) Lactic Acid 3.1 H (0.5-2.2) mmol/L Calcium (8.6-10.8) mg/dL Total Bilirubin (0.2-1.2) mg/dL Direct Bilirubin (0.0-0.5) mg/dL Indirect Bilirubin (0.0-1.2) mg/dL AST (5-34) Units/L ALT (0-55) Units/L Alkaline Phosphatase (38-126) Units/L Troponin I 0.01 (0-0.03) ng/mL Serum Total Protein (6.0-8.3) g/dL Albumin (3.5-5.0) g/dL Globulin (2.4-3.5) g/dL Albumin/Globulin Ratio (1.1-2.2) Lipase (8-78) Units/L Urine Color Yellow (Yellow) Urine Clarity Clear (Clear) Urine pH 8.5 H (5.0-8.0) pH Units Ur Specific [place] > 1.030 H (1.010-1.025) Urine Protein 100 H (Neg-Trace) mg/dL Urine Glucose (UA) Normal (Normal) mg/dL Urine Ketones 15 H (Negative) mg/dL Urine Blood Negative (Negative) Urine Nitrite Negative (Negative) Urine Bilirubin Negative (Negative) Urine Urobilinogen Normal (Normal) mg/dL Ur Leukocyte Esterase Trace H (Negative) Urine Microscopic RBC 0-3 (0-3) per hpf Urine Microscopic WBC 5-15 H (0-3) per hpf Ur Squamous Epith Cells Moderate H (None-Few) per lpf Urine Bacteria None Seen (None-Few) per hpf Hyaline Casts None Seen (None-Few) per lpf Ur Culture Indicated? YES A (NO) - Radiology Data Radiology results reviewed: Yes I reviewed the patient's radiology results. Abdomen/Pelvis CT 07/06/17 02:36 IMPRESSION: 1. Findings consistent with presence of high-grade small bowel obstruction with visualization of small bowel stool sign involving a loop of small bowel along the anterior aspect of the lower abdomen. No evidence of intraperitoneal free air or abscess. 2. Findings consistent with changes of fatty infiltration of the liver. 3. Interval surgical repair with mesh for treatment of midline anterior abdominal wall hernias. There are residual/recurrent tiny hernias containing mesenteric fat along the periphery of the mesh with largest hernia visualized along the inferior border of the mesh as described above. D/ / Matt Ayoub MD / Matt Ayoub MD Interpreting Provider: Matt Ayoub MD - EKG Data EKG attestation: Yes I reviewed and interpreted this EKG. EKG results narrative: EKG done at 139 shows normal sinus rhythm with a rate of [address] elevation or depression. Normal axis. Attestation Statement - Attestation Attestation: I, Simone Craft, examined this patient and my medical decision-making was reviewed with the YOUTH COUNSELOR/PA/Advanced Practice Nurse/Resident Physician. I agree with the documented findings, disposition and treatment plan as described except to the extent set forth below. 67-year-old male presents with acute onset of severe abdominal pain. Patient states pain feels similar to his previous small bowel obstruction. Patient reports nausea but has not vomited. On physical exam the patient has a distended abdomen that is very tender to palpation and percussion. Pain improved after administration of IV medications and IV fluids. CT of the abdomen and pelvis reveals likely small bowel obstruction. Nasogastric tube placed in the emergency department. Dr. posada, the patient's surgeon, was counseled regarding the CT findings. Patient will be admitted to the hospitalist for further care and evaluation.
[2017-07-06 02:36] LABS: INR 1.1; Prothrombin Time 11.9 Seconds (9.4-12.1)
[2017-07-06 02:38] LABS: Activated Partial Thrombo Time 28.3 Seconds (26.0-36.0)
[2017-07-06 02:45] LABS: Alanine Aminotransferase 18 Units/L (0-55); Albumin 3.9 g/dL (3.5-5.0); Albumin/Globulin Ratio 1.1 (1.1-2.2); Alkaline Phosphatase 54 Units/L (38-126); Aspartate Amino Transferase 20 Units/L (5-34); BUN/Creatinine Ratio 16 (6-26); Bilirubin,Direct 0.3 mg/dL (0.0-0.5); Bilirubin,Indirect 0.5 mg/dL (0.0-1.2); Bilirubin,Total 0.8 mg/dL (0.2-1.2); Blood Urea Nitrogen 19 mg/dL (8-26); Calcium 9.7 mg/dL (8.6-10.8); Carbon Dioxide 25 mEq/L (19-29); Chloride 104 mEq/L (98-109); Globulin 3.6 g/dL (2.4-3.5); Glucose 169 mg/dL (70-99); Lipase 24 Units/L (8-78); Osmolality,Calculated 300 (280-300); Potassium 3.5 mEq/L (3.5-4.5); Sodium 142 mEq/L (136-145); Total Protein 7.5 g/dL (6.0-8.3); eGFR For African Americans > 60 (> 60); eGFR For Non-African Americans > 60 (> 60)
[2017-07-06 04:01] LABS: Bilirubin,Urine Negative (Negative); Blood,Urine Negative (Negative); Clarity,Urine Clear (Clear); Color,Urine Yellow (Yellow); Glucose,Urine (UA) Normal (Normal); Ketones,Urine 15 mg/dL (Negative); Leukocyte Esterase,Urine Trace (Negative); Nitrite,Urine Negative (Negative); PH,Urine 8.5 pH Units (5.0-8.0); Protein,Urine 100 mg/dL (Neg-Trace); Specific Gravity,Urine > 1.030 (1.010-1.025); Urobilinogen,Urine Normal (Normal)
[2017-07-06 04:04] LABS: Bacteria,Urine None Seen per hpf (None-Few); Hyaline Casts,Urine None Seen per lpf (None-Few); RBC,Urine 0-3 per hpf (0-3); Squamous Epithelial Cell,Urine Moderate per lpf (None-Few)
[2017-07-06] MEDS ORDERED: Lidocaine TOPICAL Soln 50 ML BOTTLE TP ONE (04:17)
[2017-07-06] MEDS ORDERED: Piperacillin/Tazobactam 3.375 GM in D5% in Water (Mini-Bag+) 100 ML IVPB ONE (04:31)
[2017-07-06] MEDS ORDERED: Lidocaine Viscous Oral Soln 15 ML SOLUTION ONE (04:43)
[2017-07-06] MEDS ORDERED: *HR* HYDROmorphone (PF) 1 MG/ML SYRINGE ONE (04:46)
--- NOTE | 2017-07-06 06:35 | Internal Med History&Physical ---
Date of Encounter: 07/06/17 Time of Encounter: 06:32 Assessment and Plan (1) Small bowel obstruction Current visit: Yes Status: Acute Patient with sudden onset nausea vomiting and abdominal pain, CT abdomen shows findings of small bowel obstruction. He had an NG tube placed in the emergency department. We will admit the patient to our service. Continue NG tube to low intermittent wall suction. We will treat nausea with IV Zofran. We will provide IV morphine for pain. Nothing by mouth. General surgery consult. (2) CHF (congestive heart failure) Current visit: No Status: Acute Hold Lasix for while nothing by mouth. Hold IV fluids for now. Daily weights. Strict I's and O's. Replete electrolytes as needed. Qualifiers: Congestive heart failure type: diastolic Congestive heart failure chronicity: chronic Qualified Code(s): I50.32 - Chronic diastolic (congestive ) heart failure (3) Obstructive sleep apnea Current visit: No Status: Chronic We will provide nighttime CPAP. (4) Morbid obesity with BMI of 40.0-44.9, adult Current visit: No Status: Chronic (5) HLD (hyperlipidemia) Current visit: No Status: Acute Resume home meds once oral intake restarted. Qualifiers: Hyperlipidemia type: unspecified Qualified Code(s): E78.5 - Hyperlipidemia , unspecified (6) Elevated WBCs Current visit: Yes Status: Acute Likely secondary to SBO and vomiting. No evidence of infection. He received 1 dose of Zosyn in the emergency department however I will not continue this given there is no clear source of infection. Qualifiers: Leukocytosis type: unspecified Qualified Code(s): D72.829 - Elevated white blood cell count, unspecified Internal Medicine - H&P: HPI Chief complaint: Abdominal pain Admitted From: Emergency Dept Plans for Post Hospital Care: Home History of present illness: Mr. Pyle is a 67 year old male with past medical history significant for obesity, diabetes and congestive heart failure who presented to the hospital for abdominal pain which he says it started suddenly last night after dinner, was located in the periumbilical area, which sharp in intensity and became severe at time he reached the hospital. The pain was associated with nonbloody vomiting and nausea. Workup done in the emergency department revealed findings concerning for small bowel obstruction. 10 point review of systems was positive for lower extremity swelling otherwise negative. Surgical history: Abdominal hernia repair, had episodes of small bowel obstruction in the past Family history positive for congestive heart failure and the patient's mother Social history: Denies tobacco alcohol or drug use. Past Med Surg Social Fam HX - Past Medical History Medical history: CHF, migraine, other Psychiatric history: no psych history - Past Surgical History Surgical History: cholecystectomy, herniorrhaphy, other (Hernia repair, right leg fracture, left rotator cuff surgery,) - Social History Smoking Status: Never smoker Smokeless Tobacco Status: No Alcohol use: none Drug use: none - Family History Mother Hx Family Cardiac Disorders: Yes (pacer) Father Family Member Ethnicity: Non- Living Status: Internal Medicine - H&P: Meds Terazosin HCl 10 mg PO HS 01/03/16 [History] Furosemide [Lasix] 20 mg PO DAILY #30 tablet 05/08/17 [Rx] clonazePAM [Clonazepam] 0.25 mg PO BID PRN #14 tab.rapdis 05/08/17 [Rx] Allergies No Known Allergies Allergy (Unverified 12/28/15 13:50) All Systems PM: A 10-system review of systems was performed and is negative for pertinent findings except as documented above in the HPI. - Constitutional Vitals: Temp Pulse Resp BP Pulse Ox 98.0 F 72 18 125/72 93 07/06/17 01:30 07/06/17 03:03 07/06/17 05:11 07/06/17 05:11 07/06/17 03:03 General appearance: Present: A&O X 3, morbidly obese, no acute distress - Eye Eye exam: Present: PERRL, conjuntiva pink, sclera anicteric Pupils: Present: PERRL - Respiratory Respiratory exam: Present: CTAB. Absent: accessory muscle use, rales, rhonchi, wheezes - Cardiovascular Cardiovascular exam: Present: RRR, +S1, +S2. Absent: diastolic murmur, gallop, rubs, systolic murmur - GI/Abdominal GI/Abdominal exam: Present: hypoactive bowel sounds, soft, no peritoneal signs. Absent: distended, tenderness - Extremities Exam Extremities exam: Present: pedal edema, warm, radial pulses palpable and symmetrical. Absent: calf tenderness, cyanotic - Neurological Exam Neurological exam: Present: CN II-XII intact, oriented X3, no focal deficits. Absent: pronater drift, facial droop, speech deficit - Skin Skin exam: Present: dry, intact Internal Med - H&P Results - Labs CBC & Chem 7: 07/06/17 02:22 07/06/17 02:22 - Impressions CT abdomen and pelvis reviewed by myself shows high grade small bowel obstruction and small ventral abdominal hernia.
[2017-07-06] MEDS ORDERED: Naloxone 0.4 MG/ML INJ IVP PRN (06:51)
[2017-07-06] MEDS ORDERED: Ondansetron 4 MG/2 ML VIAL IVP PRN (06:51)
[2017-07-06] MEDS: Pantoprazole 40 MG VIAL IVP SCH (07:18)
[2017-07-06] MEDS: D5% in 0.45% NACL w KCl 20 MEQ/1,000 ML MLS IVC SCH (07:18)
[2017-07-06] MEDS: *HR* Heparin 5,000 UNIT/ML VIAL SQ SCH ×2 (07:18→16:19)
--- NOTE | 2017-07-06 10:38 | General Surgery Consult Note ---
Date of Encounter: 07/06/17 Time of Encounter: 10:00 History of Present Illness Reason for consult: abdominal pain Requesting physician: Ela Gaviria History of present illness: 67-year-old male admitted after presenting to the emergency department with abrupt onset of abdominal pain, nausea, and vomiting. The patient indicates the symptoms started shortly after dinner, approximately 2100 hrs. Patient describes being in significant distress. He presented to [facility] ED for further evaluation and treatment. CT abdomen/pelvis was notable for: Mild diffuse low attenuation of the liver consistent with fatty infiltration; evidence of previous cholecystectomy; atrophic change with fatty replacement of the pancreas; tiny nonobstructing calculus lower pole left kidney ; marked distention of the stomach with fluid and air; moderate distention of multiple loops of small bowel within the abdomen and pelvis; a transition zone in the distal small bowel to normal caliber suggestive of a small bowel obstruction; moderate fecal loading of the colon; normal appearing appendix. Incidental finding of an enlarged prostate is also noted along with cessation of tiny hernias containing mesenteric fat along the periphery of the mesh and a large residual hernia revision was inferiorly just above the level of the umbilicus. This may be an eventration of the anterior abdominal wall rather than a hernia as a fascial defect is not apparent on physical examination. The generator changes at multiple levels of the lumbosacral spine and sacroiliac chances also noted. [facility] were consulted for the small bowel obstruction. Past medical history: Morbid obesity, diastolic CHF, sleep apnea, hyperlipidemia and possible hypertension. Patient also has a history of migraines Surgical history: Laparoscopic cholecystectomy with laparoscopic lysis of adhesions and release of small bowel obstruction in 2003; umbilical hernia repair with mesh; ORIF of the arm; ORIF broken nose 2; shoulder surgery/ rotator cuff repair; colonoscopy believed to have been completed approximately 2010; repair of recurrent ventral incisional hernia with mesh December 2015. Allergies: No known drug allergies Medications: Terazosin 10 mg by mouth daily at bedtime Furosemide 40 mg by mouth daily (recently increased from 20-40 mg) Clonazepam 0.25 mg by mouth twice a day Social history: , lives with spouse; denies any alcohol tobacco or illicit drug use; never smoker Physical examination: Morbidly obese patient resting comfortably in his hospital bed. An NG tube is in place and draining bilious fluid. The patient is afebrile, 97.9, pulse 58, respirations 18, blood pressure 151/ 76. SPO2 on room air 93% Skin: Warm, without obvious jaundice Cardiac: Rate slow but regular; no appreciable murmurs Lungs: Clear; no obvious abdominal pain and deep inspiration Abdomen: Protuberant, soft, with minimal tenderness. Bowel sounds are present. The patient describes passage of flatus this morning There is a well-healed midline incision cephalad to the umbilicus without obvious fascial defects. No other subcutaneous masses or fascial Defects were identified. I did not elicit any rebound. No CVA tenderness Extremities: 1+ pitting edema bilateral lower extremities at the level of the ankles. Laboratories: White count 12.8, neutrophils 10.7% the rest of the differential is unremarkable hemoglobin 14.6, hematocrit 43.4, platelet count 211,000 Electrolytes were within normal limits, BUN 19, creatinine 1.19; eGFR >60; lactic acid 3.1; glucose 169 Urinalysis notable for a pH of 8.5, specific gravity greater than 1.030; protein 100, ketones 15, leukocyte esterase trace; 0-3 RBCs, 5-15 WBCs Urine culture pending Impression: A 67-year-old male admitted to [facility] for further evaluation and treatment after presenting to the emergency department with abrupt onset abdominal pain, nausea and vomiting. Radiologic findings concerning for small bowel obstruction exacerbated by the patient's dehydration related to his nausea vomiting and daily Lasix. The patient is feeling better after administration of fluids, and NG decompression. The abdominal exam is fairly unremarkable. The CT was personally reviewed. Recommendation: Small bowel follow-through using Gastrografin I will follow along with you Past Med Surg Social Fam HX - Past Medical History Medical history: CHF, migraine, other Psychiatric history: no psych history - Past Surgical History Surgical History: cholecystectomy, herniorrhaphy, other (Hernia repair, right leg fracture, left rotator cuff surgery,) - Social History Smoking Status: Never smoker Smokeless Tobacco Status: No Alcohol use: none Drug use: none - Family History Mother Hx Family Cardiac Disorders: Yes (pacer) Father Family Member Ethnicity: Non- Living Status: Medications and Allergies Terazosin HCl 10 mg PO HS 01/03/16 [History] Furosemide [Lasix] 20 mg PO DAILY #30 tablet 05/08/17 [Rx] clonazePAM [Clonazepam] 0.25 mg PO BID PRN #14 tab.rapdis 05/08/17 [Rx] Allergies No Known Allergies Allergy (Unverified 12/28/15 13:50) Review of Systems All systems PM: A 10-system review of systems was performed and is negative for pertinent findings except as documented above in the HPI. General Surgery Exam Initial Vital Signs Temp Pulse Resp BP Pulse Ox 98.0 F 58 20 158/85 97 07/06/17 01:30 07/06/17 01:30 07/06/17 01:30 07/06/17 01:30 07/06/17 01:30 Exam Initial Vital Signs Temp Pulse Resp BP Pulse Ox 98.0 F 58 20 158/85 97 07/06/17 01:30 07/06/17 01:30 07/06/17 01:30 07/06/17 01:30 07/06/17 01:30 Results - Labs 07/06/17 02:22 07/06/17 02:22 Abnormal lab results WBC 12.8 K/mcL (4.3-11.1) H 07/06/17 02:22 Neutrophils # 10.7 K/mcL (1.6-8.9) H 07/06/17 02:22 Glucose 169 mg/dL (70-99) H 07/06/17 02:22 POC Glucose 172 (58-89) H 07/06/17 06:51 Lactic Acid 3.1 mmol/L (0.5-2.2) H 07/06/17 02:22 Globulin 3.6 g/dL (2.4-3.5) H 07/06/17 02:22 Urine pH 8.5 pH Units (5.0-8.0) H 07/06/17 03:54 Ur Specific [place] > 1.030 (1.010-1.025) H 07/06/17 03:54 Urine Protein 100 mg/dL (Neg-Trace) H 07/06/17 03:54 Urine Ketones 15 mg/dL (Negative) H 07/06/17 03:54 Ur Leukocyte Esterase Trace (Negative) H 07/06/17 03:54 Urine Microscopic WBC 5-15 per hpf (0-3) H 07/06/17 03:54 Ur Squamous Epith Cells Moderate per lpf (None-Few) H 07/06/17 03:54 Ur Culture Indicated? YES (NO) A 07/06/17 03:54 All other labs normal. Consult Discharge Plan - Plan Referrals: Chelly Rosa, [facility] [Primary Care Provider] -
[2017-07-06] MEDS ORDERED: 0.9 % Sodium Chloride 250 ML IVC ONE (10:39)
--- NOTE | 2017-07-06 11:58 | Event Note ---
Date of Encounter: 07/06/17 Time of Encounter: 11:57 Patient does not feel much better. Has NG tube in place and draining bilious fluid. Has been evaluated by surgery and recommended small bowel follow through. We will follow results of this study. Continue with supportive care, nothing by mouth and IV fluids. Pain management with IV narcotic medications as needed.
[2017-07-06] MEDS: *HR* Morphine 2 MG/ML SYRINGE IVP PRN (13:45)
[2017-07-06] MEDS ORDERED: *HR* Promethazine 25 MG/ML VIAL IVP PRN (13:57)
[2017-07-06] MEDS: Ondansetron 4 MG/2 ML VIAL IVP PRN (13:57)
--- NOTE | 2017-07-06 17:56 | Electrocardiograph Report ---
[address] [place] [address] Test Date: 2017-07-06 Pat Name: Ismael Pyle Department: 105 Room: 3A42 Gender: M [employer] Operator: RONY : 1950 Requested By: Ela Gaviria Order Number: [id number] Reading MD: Sirisha Painting Measurements Intervals [place] Rate: 69 P: 54 NE: 164 QRS: 23 QRSD: 83 T: 51 QT: 335 QTc: 354 Interpretive Statements SINUS RHYTHM WITH SINUS ARRHYTHMIA NONSPECIFIC T-WAVE ABNORMALITY Electronically Signed On 07-06-2017 17:54:49 EDT by Sirisha Painting
[2017-07-07] MEDS: *HR* Morphine 2 MG/ML SYRINGE IVP PRN (00:29)
[2017-07-07] MEDS: Ondansetron 4 MG/2 ML VIAL IVP PRN (00:30)
[2017-07-07] MEDS: *HR* Heparin 5,000 UNIT/ML VIAL SQ SCH ×3 (00:30→17:54)
[2017-07-07] MEDS: D5% in 0.45% NACL w KCl 20 MEQ/1,000 ML MLS IVC SCH ×2 (00:39→09:56)
[2017-07-07 05:33] LABS: INR 1.1; Prothrombin Time 12.4 Seconds (9.4-12.1)
[2017-07-07 05:41] LABS: BUN/Creatinine Ratio 19 (6-26); Blood Urea Nitrogen 21 mg/dL (8-26); Calcium 8.6 mg/dL (8.6-10.8); Carbon Dioxide 28 mEq/L (19-29); Chloride 107 mEq/L (98-109); Glucose 124 mg/dL (70-99); Magnesium 2.6 mg/dL (1.6-2.6); Osmolality,Calculated 300 (280-300); Potassium 3.9 mEq/L (3.5-4.5); Sodium 143 mEq/L (136-145); eGFR For African Americans > 60 (> 60); eGFR For Non-African Americans > 60 (> 60)
[2017-07-07 06:43] LABS: Basophils % 0.4 %; Eosinophils # 0.2 K/mcL (0.0-0.6); Eosinophils % 2.2 %; Hematocrit 41.8 % (37.5-50.1); Hemoglobin 13.6 g/dL (12.9-16.9); Immature Granulocytes % 0.4 % (0-4); Lymphocytes # 2.2 K/mcL (0.6-4.6); Mean Corpuscular HGB Conc 32.5 g/dL (31.6-35.5); Mean Corpuscular Hemoglobin 31.4 pg (28.0-33.3); Mean Corpuscular Volume 96.5 fL (83.0-100.0); Monocytes # 0.7 K/mcL (0.0-1.3); Neutrophils # 6.5 K/mcL (1.6-8.9); Platelet Count 181 K/mcL (140-400); Red Blood Count 4.33 M/mcL (4.19-5.50); Red Cell Distribution Width 13.9 % (11.5-14.5)
[2017-07-07] MEDS: Pantoprazole 40 MG VIAL IVP SCH (09:57)
--- NOTE | 2017-07-07 13:24 | General Surgery Progress Note ---
Date of Encounter: 07/07/17 Time of Encounter: 13:16 Subjective Patient reports: feels better Narrative: General Surgery - Progress Note patient feeling better, in NAD; no further nausea or vomiting. Passing flatus Afebrile, pulse 56, respirations 18, blood pressure 146/80. SPO2 on room air 95% NG - output 1625 mL so far today, clear bilious fluid. Small bowel follow-through were reviewed with [facility] as well as abdominal films completed today - Small bowel follow-through showed normal transit time to the terminal ileum. However, persistent mildly to moderately dilated small bowel persists particularly in the left abdomen. The terminal ileum was described to be of normal caliber. There was no definite visualization of transition point. The described large hernia - is more likely an eventration rather than a true defect. Abdominal films completed this morning show contrast completely within the colon reaching the rectum. Interpretation of the small bowel follow-through is that of a partial small bowel obstruction but is felt to be extremely low-grade. Laboratories: Leukocytosis has resolved, 9.7; hemoglobin 13.6, hematocrit 41.8. Differential 's within normal limits with resolution of the elevated neutrophils (10.7 to 6.5). Electrolytes, BUN, creatinine and have remained within normal limits. The elevated lactic acid was not rechecked. lungs: Clear Abdomen: Protuberant but soft, nontender. No appreciable masses. No hernias. Active bowel sounds. Impression: Resolution of the patient's abdominal pain, nausea and vomiting. Possible small bowel obstruction versus gastroenteritis. If this is a small bowel obstruction related to previous abdominal surgeries/ adhesions - it is considered extremely low-grade Plan: NG removed; will initiate clear liquid diet and advance as tolerated' Discussed with Dr Giles If tolerating diet with no recurrent symptoms, may be discharged home with surgical follow up as needed. Objective Vital Signs - Last 8 Hours Temp Pulse Resp BP Pulse Ox 07/07/17 10:30 97.9 F 56 18 146/80 95 07/07/17 06:28 98.3 F 53 18 146/83 90 Intake and Output 07/06/17 07/07/17 07/07/17 23:59 07:59 15:59 Intake Total 20 / 20 1010 / 1010 1000 / 1000 Output Total 1550 / 1550 1400 / 1400 450 / 450 Balance -1530 / -1530 -390 / -390 550 / 550 Intake: IV Fluids 1000 / 1000 1000 / 1000 KCl 20mEq IN D5%-0.45 1000 / 1000 1000 / 1000 NACL 20 meq In 1,000 ml @ 75 mls/hr IVC .[id number] [facility] Rx#:[id number] Oral 0 / 0 Output: Urine 200 / 200 225 / 225 0 / 0 Gastric Drainage 1350 / 1350 1175 / 1175 450 / 450 Other: Meal NPO NPO Percent of Meal Consumed 0% Weight 127.11 kg Blood Glucose* 116 135 127 Patient Weight 07/07/17 23:59 Weight 127.11 kg - Labs 07/07/17 04:53 07/07/17 04:53 Diabetes panel 07/07/17 Range/Units 04:53 Sodium 143 (136-145) mEq/L Potassium 3.9 (3.5-4.5) mEq/L Chloride 107 (98-109) mEq/L Carbon Dioxide 28 (19-29) mEq/L BUN 21 (8-26) mg/dL Creatinine 1.09 (0.72-1.25) mg/dL Glucose 124 H (70-99) mg/dL Calcium 8.6 (8.6-10.8) mg/dL Calcium panel 07/07/17 Range/Units 04:53 Calcium 8.6 (8.6-10.8) mg/dL Pituitary panel 07/07/17 Range/Units 04:53 Sodium 143 (136-145) mEq/L Potassium 3.9 (3.5-4.5) mEq/L Chloride 107 (98-109) mEq/L Carbon Dioxide 28 (19-29) mEq/L BUN 21 (8-26) mg/dL Creatinine 1.09 (0.72-1.25) mg/dL Glucose 124 H (70-99) mg/dL Calcium 8.6 (8.6-10.8) mg/dL Adrenal panel 07/07/17 Range/Units 04:53 Sodium 143 (136-145) mEq/L Potassium 3.9 (3.5-4.5) mEq/L Chloride 107 (98-109) mEq/L Carbon Dioxide 28 (19-29) mEq/L BUN 21 (8-26) mg/dL Creatinine 1.09 (0.72-1.25) mg/dL Glucose 124 H (70-99) mg/dL Calcium 8.6 (8.6-10.8) mg/dL Consult Discharge Plan - Plan Referrals: Chelly Rosa, [facility] [Primary Care Provider] -
[2017-07-07] MEDS ORDERED: Furosemide 40 MG/4 ML VIAL IVP ONE (13:31)
--- NOTE | 2017-07-07 16:20 | Internal Med Progress Note ---
Date of Encounter: 07/07/17 Time of Encounter: 09:20 - Assessment and plan (1) Small bowel obstruction Current Visit: Yes Status: Acute Assessment and plan: Abdominal x-ray done today shows contrast in the colon suggesting resolution of small bowel obstruction which was most likely partial low-grade small bowel obstruction. Patient will be started on clear liquid diet and advance as tolerated after surgical clearance and NG tube has been removed. Continue supportive care. We will stop IV fluids. On subcutaneous heparin for DVT prophylaxis. (2) CHF (congestive heart failure) Current Visit: Yes Status: Chronic Assessment and plan: Resume Lasix. Patient developing some pedal edema. Qualifiers: Congestive heart failure type: diastolic Congestive heart failure chronicity: chronic Qualified Code(s): I50.32 - Chronic diastolic (congestive ) heart failure (3) HTN (hypertension) Current Visit: Yes Status: Chronic Assessment and plan: Blood pressure is slightly elevated. Likely related to pain and discomfort. Will monitor blood pressure. Patient only on Hytrin at bedtime. We will continue Qualifiers: Hypertension type: essential hypertension Qualified Code(s): I10 - Essential (primary) hypertension (4) Morbid obesity with BMI of 40.0-44.9, adult Current Visit: No Status: Chronic (5) Obstructive sleep apnea Current Visit: Yes Status: Chronic Assessment and plan: Use CPAP as needed - Subjective Interval history: Patient feeling somewhat better today. Passing flatus. Nasogastric tube in place and still draining bilious fluid. - Constitutional Vitals: Temp Pulse Resp BP Pulse Ox 98.6 F 68 18 136/76 93 07/07/17 15:24 07/07/17 15:24 07/07/17 15:24 07/07/17 15:24 07/07/17 15:24 General appearance: Present: A&O X 3, morbidly obese, no acute distress, answers questions appropriately - Respiratory Respiratory exam: Present: CTAB. Absent: accessory muscle use, rales, rhonchi, wheezes - Cardiovascular Cardiovascular exam: Present: RRR, +S1, +S2. Absent: diastolic murmur, gallop, rubs, systolic murmur - GI/Abdominal GI/Abdominal exam: Present: normal bowel sounds, soft, no peritoneal signs. Absent: tenderness Additional comments: Abdominal hernia present - Extremities Exam Extremities exam: Present: pedal edema, warm, radial pulses palpable and symmetrical. Absent: calf tenderness, cyanotic Internal Medicine: Result - Labs CBC & Chem 7: 07/07/17 04:53 07/07/17 04:53 Labs: Short CBC 07/07/17 Range/Units 04:53 WBC 9.7 (4.3-11.1) K/mcL Hgb 13.6 (12.9-16.9) g/dL Hct 41.8 (37.5-50.1) % Plt Count 181 (140-400) K/mcL Neutrophils # 6.5 (1.6-8.9) K/mcL BMP 07/07/17 04:53 Sodium 143 Potassium 3.9 Chloride 107 Carbon Dioxide 28 BUN 21 Creatinine 1.09 Glucose 124 H Calcium 8.6 - ABG Interpretation ABG results: PT/INR, D-dimer PT 12.4 Seconds (9.4-12.1) H 07/07/17 04:53 - Impressions Impressions Abdomen X-Ray 07/07/17 07:00 IMPRESSION: Residual contrast throughout the colon. This is likely from prior day small bowel follow-through series. Nonspecific nonobstructive bowel gas pattern. NG tube in the stomach. D/ / Kameron Michaud MD / Kameron Michaud MD Interpreting Provider: Kameron Michuad MD Consult Discharge Plan - Plan Referrals: Chelly Rosa, [facility] [Primary Care Provider] -
[2017-07-08] MEDS: *HR* Heparin 5,000 UNIT/ML VIAL SQ SCH ×2 (00:52→08:30)
[2017-07-08] MEDS ORDERED: Furosemide 40 MG TABLET PO SCH (09:00)
--- NOTE | 2017-07-08 10:00 | Discharge Summary ---
Date of Encounter: 07/08/17 Time of Encounter: 09:58 - Discharge Diagnosis (1) Small bowel obstruction Priority: Primary Status: Resolved (2) CHF (congestive heart failure) Priority: Secondary Status: Chronic Qualifiers: Congestive heart failure type: diastolic Congestive heart failure chronicity: chronic Qualified Code(s): I50.32 - Chronic diastolic (congestive ) heart failure (3) Obstructive sleep apnea Priority: Secondary Status: Chronic (4) Morbid obesity with BMI of 40.0-44.9, adult Priority: Secondary Status: Chronic (5) HTN (hypertension) Priority: Secondary Status: Chronic Qualifiers: Hypertension type: essential hypertension Qualified Code(s): I10 - Essential (primary) hypertension - Discharge Medications Home Medications: Terazosin HCl 10 mg PO HS 01/03/16 [History] Furosemide [Lasix] 40 mg PO DAILY 07/06/17 [History] Allergies/Adverse Reactions: Allergies No Known Allergies Allergy (Unverified 12/28/15 13:50) Date of admission: 07/06/17 06:51 Primary care physician: Chelly Rosa CNP Consults: Surgery: Dr. hines Discharging clinician: Ariella Grimes Anticipated date of discharge: 07/08/17 - Patient Status Disposition: Home, Self-Care Condition: Good Functional capacity at discharge: independent ambulation Overall status at discharge: patient is back to baseline - Discharge Instructions Follow Up With: Chelly Rosa CNP [Primary Care Provider] - 07/11/17 1:45 pm Additional Instructions: Please follow up with your primary care physician within five days after your discharge from the hospital. Please follow up with Dr. Hines (surgery) within one week after your discharge from the hospital. Please resume all your home medications as prescribed by your primary care physician. Please adhere to a fluid restriction diet (2L/day). - Diet and Activity Activity: increase activity as tolerated Diet: low salt diet (fluid restriction diet 2L/day ) Hospital course: Mr. Pyle is a 67 year old male with PMH of morbid obesity, CHF who was admitted for abdominal pain secondary to partial small bowel obstruction. He was followed by surgery (Dr. Hines). NGT was initially placed for bowel rest and patient was NPO. Pt's symptoms improved with supportive care and his NGT was removed yesterday with initiation of PO diet. He was able to tolerate cardiac diet well for dinner and breakfast and reports of having a bowel movement this morning. Denies any discomfort at this time. Pt reported of drinking over a gallon of fluid daily and fluid restriction diet was recommended given history of CHF. Pt is willing to comply. Pt is hemodynamically stable and will be discharged to home today. Pt and ( present at bedside) demonstrate understanding of his diagnosis and agree with the discharge care and plan. Pt is to follow up with PCP and surgery after discharge. - Time Spent with Patient Total time spent providing and/or coordinating discharge services: Less than 30 minutes - Constitutional Vitals: Temp Pulse Resp BP Pulse Ox 97.7 F 63 16 120/73 92 07/08/17 07:30 07/08/17 07:30 07/08/17 07:30 07/08/17 07:30 07/08/17 07:30 General appearance: Present: A&O X 3, morbidly obese, no acute distress, answers questions appropriately - Head Head exam: Present: atraumatic, normocephalic - Eye Eye exam: Present: conjuntiva pink, sclera anicteric - Respiratory Respiratory exam: Absent: respiratory distress, wheezes - Cardiovascular Cardiovascular exam: Present: RRR, +S1, +S2. Absent: diastolic murmur, gallop, rubs, systolic murmur - GI/Abdominal GI/Abdominal exam: Present: distended (obese), normal bowel sounds, soft, no peritoneal signs. Absent: tenderness - Extremities Exam Extremities exam: Present: pedal edema, warm, radial pulses palpable and symmetrical. Absent: calf tenderness - Neurological Exam Neurological exam: Present: alert, oriented X3
[2017-07-08 10:30] VITALS: BP 142/80
== END 2017-07-08 11:37 | disposition home or self-care (01) | DRG 389 ==
LOC: EMEROO 01:25 → 3ANU 01:25 → SUATTDRO 06:51
PROVIDERS: ADMIT Internal Medicine Hematology & Oncology; ATTEND Internal Medicine

== ENCOUNTER 2018-04-07 16:08 | Observation (INO) ==
[2018-04-07 16:35] LABS: Bilirubin,Urine Negative (Negative); Blood,Urine Negative (Negative); Clarity,Urine Clear (Clear); Color,Urine Yellow (Yellow); Glucose,Urine (UA) Normal (Normal); Ketones,Urine Negative (Negative); Leukocyte Esterase,Urine Negative (Negative); Nitrite,Urine Negative (Negative); PH,Urine 5.5 pH Units (5.0-8.0); Protein,Urine Negative (Neg-Trace); Specific Gravity,Urine 1.024 (1.010-1.025); Urobilinogen,Urine Normal (Normal)
[2018-04-07 16:57] LABS: Basophils # 0.1 K/mcL (0.0-0.2); Basophils % 0.5 %; Eosinophils # 0.1 K/mcL (0.0-0.6); Eosinophils % 1.1 %; Hematocrit 42.2 % (37.5-50.1); Hemoglobin 15.3 g/dL (12.9-16.9); Immature Granulocytes % 0.5 % (0-4); Lymphocytes % 18.9 %; Mean Corpuscular HGB Conc 36.3 g/dL (31.6-35.5); Mean Corpuscular Hemoglobin 33.3 pg (28.0-33.3); Mean Corpuscular Volume 91.7 fL (83.0-100.0); Mean Platelet Volume 10.1 fL (9.4-12.4); Monocytes # 0.8 K/mcL (0.0-1.3); Neutrophils # 7.5 K/mcL (1.6-8.9); Platelet Count 205 K/mcL (140-400); Red Cell Distribution Width 13.2 % (11.5-14.5)
[2018-04-07 17:17] LABS: Alanine Aminotransferase 20 Units/L (7-52); Albumin 4.1 g/dL (3.5-5.7); Albumin/Globulin Ratio 1.5 (1.1-2.2); Alkaline Phosphatase 50 Units/L (34-104); Aspartate Amino Transferase 23 Units/L (13-39); BUN/Creatinine Ratio 13 (6-26); Bilirubin,Direct 0.1 mg/dL (0.0-0.2); Bilirubin,Indirect 0.4 mg/dL (0.0-1.2); Bilirubin,Total 0.5 mg/dL (0.3-1.0); Blood Urea Nitrogen 15 mg/dL (8-23); Calcium 9.9 mg/dL (8.6-10.3); Carbon Dioxide 30 mEq/L (23-29); Chloride 98 mEq/L (98-107); Globulin 2.8 g/dL (2.4-3.5); Glucose 186 mg/dL (70-105); Lipase 34 Units/L (11-82); Osmolality,Calculated 294 (280-300); Potassium 3.4 mEq/L (3.5-5.1); Sodium 139 mEq/L (136-145); Total Protein 6.9 g/dL (6.4-8.9); eGFR For African Americans > 60 (> 60); eGFR For Non-African Americans > 60 (> 60)
[2018-04-07] MEDS ORDERED: Isovue-370 500 ML INFUS..BTL IV ONE (19:22)
--- NOTE | 2018-04-07 19:26 | Emergency Department Note ---
Disposition Clinical Impression: Abdominal pain Qualifiers: Abdominal location: periumbilical Qualified Code(s): R10.33 - Periumbilical pain Disposition: Admitted As Inpatient Condition: Fair Time of Disposition: 21:36 General Adult HPI - General Chief complaint: ED Abdominal Pain Stated complaint: possible bowel obstruction Time Seen by Provider: 04/07/18 19:20 Nursing Notes Reviewed: Yes Vital Signs Reviewed: Yes - History of Present Illness HPI Narrative: 68-year-old male past medical history of bowel obstructions presents to the emergency department with epigastric abdominal pain since 10:00 this morning. Patient states that he has felt this way in the past with bowel obstructions. Has had previous hernia repair was performed by Dr. posada. He denies any chest pain, pressure, tightness. He states that the pain is intermittent in nature and he came to the emergency department because he got significantly worse today. Patient reports his last bowel movement being yesterday and states that over the last 2 weeks it has decreased in caliber. Reports having a colonoscopy but does not know how long ago has been. Patient does follow cardiology for congestive heart failure. He denies any shortness of breath. Pain Scale: 7 - Related Data Home Medications Medication Instructions Recorded Confirmed Terazosin HCl 10 mg PO HS 01/03/16 04/07/18 Aspirin [Lo-Dose Aspirin EC] 81 mg PO DAILY 04/07/18 04/07/18 Furosemide [Lasix] 80 mg PO BID 04/07/18 04/07/18 Potassium Chloride [Klor-Con 10 meq PO BID 04/07/18 04/07/18 Sprinkle] metOLazone [Zaroxolyn] 2.5 mg PO DAILY 04/07/18 04/07/18 Allergies Allergy/AdvReac Type Severity Reaction Status Date / Time No Known Allergies Allergy Verified 04/04/18 01:13 All systems ED: reviewed and negative except as stated. Review of Systems: As Per HPI Constitutional: Denies: fever Cardiovascular: Denies: chest pain, dyspnea on exertion Respiratory: Denies: cough, dyspnea Gastrointestinal: Reports: abdominal pain, other (Difference in stool caliber). Denies: nausea, vomiting Genitourinary: Denies: urgency, dysuria Musculoskeletal: Denies: back pain Integumentary: Denies: rash Neurological: Denies: weakness, numbness, paresthesias Endocrine: Denies: fatigue Past Medical History - Past Medical History Medical history: Reports: CHF, migraine, other Surgical history: Reports: cholecystectomy, herniorrhaphy, other (Hernia repair , right leg fracture, left rotator cuff surgery,) Psychiatric history: Reports: no psych history - Social History Smoking Status: Never smoker Smokeless Tobacco Status: No Alcohol use: Reports: none Drug use: Reports: none Physical Exam - General General appearance: alert - Head Head exam: atraumatic - Eye Eye exam: Present: normal appearance. Absent: scleral icterus, conjunctival injection - ENT ENT exam: normal oropharynx, mucous membranes moist - Neck Neck exam: Present: trachea midline. Absent: tenderness, meningismus - Chest Chest inspection: Present: symmetric chest wall rise - Respiratory Respiratory exam: Present: normal lung sounds bilaterally. Absent: respiratory distress - Cardiovascular Cardiovascular exam: Present: normal rhythm, bradycardia - Abdominal Exam Abdominal exam: Present: tenderness (Epigastric), distention (Mild). Absent: guarding, rebound Abdominal tenderness: Present: moderate - Extremities Exam Extremities exam: Present: full ROM - Expanded Lower Extremity Exam Hip/Pelvis exam: Present: full ROM - Back Exam Back exam: Present: normal inspection - Neurological Exam Neurological exam: Present: alert, oriented X3 - Psychiatric Psychiatric exam: Present: normal affect, normal mood - Skin Skin exam: Present: warm, dry, intact Course Vital Signs Temperature 98.4 F 04/07/18 16:10 Pulse Rate 60 04/07/18 16:10 Respiratory Rate 18 04/07/18 16:10 Blood Pressure 164/90 04/07/18 16:10 O2 Sat by Pulse Oximetry 95 04/07/18 16:10 Temperature 97.5 F L 04/08/18 02:35 Pulse Rate 52 04/08/18 02:35 Respiratory Rate 16 04/08/18 02:35 Blood Pressure 104/62 04/08/18 02:35 O2 Sat by Pulse Oximetry 96 04/08/18 02:35 Oxygen Delivery Oxygen Delivery Room Air Medical Decision Making - [facility] Narrative Medical decision making narrative: 78-year-old male presents to the emergency department with concern for epigastric abdominal pain. Patient has previous history of bowel obstruction. We will obtain CT of the abdomen and pelvis with IV and oral contrast to rule out obstruction or any other abdominal pathology. We have obtained an EKG of the patient and it shows sinus bradycardia with some T-wave inversions in lead 3 and T-wave flattening in aVF. These are nonspecific in nature. Troponin is negative. BNP is not elevated. We will also obtain chest x-ray. Patient has good creatinine function at this time and is mildly hypokalemic. Potassium is 3.4. Patient was restarted on Lasix. Patient has had hepatic transaminases are within normal limits. His lipase is negative. CT of the abdomen and pelvis revealed a broad mouthed ventral hernia that contains a small component of small bowel and colon. I have spoken to Dr. posada regarding this and he requested that we admit the patient to medical services with him following on board. We will obtain a lactic acid at this time. Patient states pain has improved some after administration of pain medication. Spoke with the patient regarding admission and he agreed. We will keep the patient nothing by mouth at this time. Chest X-Ray 04/07/18 19:20 IMPRESSION: No acute process. D/ / Jason Eaton MD / Jason Eaton MD Interpreting Provider: Jason Eaton MD Abdomen/Pelvis CT 04/07/18 20:30 IMPRESSION: 1. Broad mouthed ventral hernia contains a small component of small bowel and colon. It appears the patient may have had previous ventral herniorrhaphy. 2. Hepatic steatosis. 3. Cholecystectomy. 4. Nonobstructing calculus inferior pole left kidney. 5. SI joint findings bilateral suggesting sacroiliitis. D/ / Polo Patterson / Polo Patterson Interpreting Provider: Polo Patterson - Lab Data Lab results reviewed: Yes I reviewed the patient's lab results. Result diagrams: 04/08/18 05:13 04/07/18 16:32 Lab Results 04/07/18 04/07/18 04/07/18 Range/Units 16:28 16:32 16:32 WBC 10.5 (4.3-11.1) K/mcL RBC 4.60 (4.19-5.50) M/mcL Hgb 15.3 (12.9-16.9) g/dL Hct 42.2 (37.5-50.1) % MCV 91.7 (83.0-100.0) fL MCH 33.3 (28.0-33.3) pg MCHC 36.3 H (31.6-35.5) g/dL RDW 13.2 (11.5-14.5) % Plt Count 205 (140-400) K/mcL MPV 10.1 (9.4-12.4) fL Immature Gran % 0.5 (0-4) % Seg Neutrophils % 71.0 % Lymphocytes % 18.9 % Monocytes % 8.0 % Eosinophils % 1.1 % Basophils % 0.5 % Neutrophils # 7.5 (1.6-8.9) K/mcL Lymphocytes # 2.0 (0.6-4.6) K/mcL Monocytes # 0.8 (0.0-1.3) K/mcL Eosinophils # 0.1 (0.0-0.6) K/mcL Basophils # 0.1 (0.0-0.2) K/mcL Sodium 139 (136-145) mEq/L Potassium 3.4 L (3.5-5.1) mEq/L Chloride 98 (98-107) mEq/L Carbon Dioxide 30 H (23-29) mEq/L BUN 15 (8-23) mg/dL Creatinine 1.19 (0.70-1.30) mg/dL Est GFR ( Amer) > 60 (> 60) Est GFR (Non-Af Amer) > 60 (> 60) BUN/Creatinine Ratio 13 (6-26) Glucose 186 H (70-105) mg/dL Calculated Osmolality 294 (280-300) Lactic Acid (0.5-2.2) mmol/L Calcium 9.9 (8.6-10.3) mg/dL Total Bilirubin 0.5 (0.3-1.0) mg/dL Direct Bilirubin 0.1 (0.0-0.2) mg/dL Indirect Bilirubin 0.4 (0.0-1.2) mg/dL AST 23 (13-39) Units/L ALT 20 (7-52) Units/L Alkaline Phosphatase 50 (34-104) Units/L Troponin I (< 0.04) ng/mL B-Natriuretic Peptide (Less than 100) pg/mL Serum Total Protein 6.9 (6.4-8.9) g/dL Albumin 4.1 (3.5-5.7) g/dL Globulin 2.8 (2.4-3.5) g/dL Albumin/Globulin Ratio 1.5 (1.1-2.2) Lipase 34 (11-82) Units/L Urine Color Yellow (Yellow) Urine Clarity Clear (Clear) Urine pH 5.5 (5.0-8.0) pH Units Ur Specific [place] 1.024 (1.010-1.025) Urine Protein Negative (Neg-Trace) mg/dL Urine Glucose (UA) Normal (Normal) mg/dL Urine Ketones Negative (Negative) mg/dL Urine Blood Negative (Negative) Urine Nitrite Negative (Negative) Urine Bilirubin Negative (Negative) Urine Urobilinogen Normal (Normal) mg/dL Ur Leukocyte Esterase Negative (Negative) 04/07/18 04/07/18 04/07/18 Range/Units 19:46 19:46 22:08 WBC (4.3-11.1) K/mcL RBC (4.19-5.50) M/mcL Hgb (12.9-16.9) g/dL Hct (37.5-50.1) % MCV (83.0-100.0) fL MCH (28.0-33.3) pg MCHC (31.6-35.5) g/dL RDW (11.5-14.5) % Plt Count (140-400) K/mcL MPV (9.4-12.4) fL Immature Gran % (0-4) % Seg Neutrophils % % Lymphocytes % % Monocytes % % Eosinophils % % Basophils % % Neutrophils # (1.6-8.9) K/mcL Lymphocytes # (0.6-4.6) K/mcL Monocytes # (0.0-1.3) K/mcL Eosinophils # (0.0-0.6) K/mcL Basophils # (0.0-0.2) K/mcL Sodium (136-145) mEq/L Potassium (3.5-5.1) mEq/L Chloride (98-107) mEq/L Carbon Dioxide (23-29) mEq/L BUN (8-23) mg/dL Creatinine (0.70-1.30) mg/dL Est GFR ( Amer) (> 60) Est GFR (Non-Af Amer) (> 60) BUN/Creatinine Ratio (6-26) Glucose (70-105) mg/dL Calculated Osmolality (280-300) Lactic Acid 1.7 (0.5-2.2) mmol/L Calcium (8.6-10.3) mg/dL Total Bilirubin (0.3-1.0) mg/dL Direct Bilirubin (0.0-0.2) mg/dL Indirect Bilirubin (0.0-1.2) mg/dL AST (13-39) Units/L ALT (7-52) Units/L Alkaline Phosphatase (34-104) Units/L Troponin I < 0.03 (< 0.04) ng/mL B-Natriuretic Peptide 19 (Less than 100) pg/mL Serum Total Protein (6.4-8.9) g/dL Albumin (3.5-5.7) g/dL Globulin (2.4-3.5) g/dL Albumin/Globulin Ratio (1.1-2.2) Lipase (11-82) Units/L Urine Color (Yellow) Urine Clarity (Clear) Urine pH (5.0-8.0) pH Units Ur Specific [place] (1.010-1.025) Urine Protein (Neg-Trace) mg/dL Urine Glucose (UA) (Normal) mg/dL Urine Ketones (Negative) mg/dL Urine Blood (Negative) Urine Nitrite (Negative) Urine Bilirubin (Negative) Urine Urobilinogen (Normal) mg/dL Ur Leukocyte Esterase (Negative) - Radiology Data Radiology results reviewed: Yes I reviewed the patient's radiology results. - EKG Data EKG #1 EKG attestation: Yes I reviewed and interpreted this EKG. EKG results narrative: 04/07/2018 19:25 Sinus bradycardia with a ventricular rate of 53 bpm. There are nonspecific T- wave changes. Leads 3 and has an inverted T-wave in aVF ST wave flattening. No evidence of ST elevation or depression at this time. IL interval is 182 ms, QRS duration is 92 ms, QTC is 442 ms, QTC is 424 ms, left axis deviation. Attestation Statement - Attestation Attestation: I examined this patient and my medical decision-making was reviewed with the Resident Physician. I agree with the documented findings, disposition and treatment plan as described except to the extent set forth below. Findings consistent with ventral hernia. There is no palpable hernia on my examination however the patient's abdomen is diffusely tender. I would be concerned about intermittent obstruction or possible obstruction versus incarceration versus irritation of abdominal fat from hernia. We will admit to the hospital with surgical consult for further management and surgical assessment. We did discuss the case with general surgery Dr. posada in the emergency department.
[2018-04-07] MEDS ORDERED: 0.9 % Sodium Chloride 1,000 ML IVC ONE (19:35)
[2018-04-07] MEDS ORDERED: *HR* FentaNYL (PF) 100 MCG/2 ML VIAL IVP ONE (19:36)
[2018-04-07] MEDS ORDERED: GI Cocktail 40 ML EACH PO ONE (21:21)
[2018-04-08] MEDS ORDERED: Ondansetron 4 MG/2 ML VIAL IVP PRN (00:35)
[2018-04-08] MEDS ORDERED: Naloxone 0.4 MG/ML INJ IVP PRN (00:35)
[2018-04-08] MEDS ORDERED: Potassium Chloride 40 MEQ, Lidocaine 1% 2 ML in D5% in Water 500 ML IVPB ONE (00:42)
--- NOTE | 2018-04-08 02:03 | Internal Med History&Physical ---
Date of Encounter: 04/08/18 Time of Encounter: 01:00 Internal Medicine - H&P: HPI Chief complaint: Abdominal pain Admitted From: Home Plans for Post Hospital Care: Home History of present illness: Mr. Pyle is a 68 year old male presented to ER for abdominal pain. Past medical history is significant for ventral hernia S/P surgery, ELEUTERIO on CPAP. Patient to said he started to have abdominal pain in the vj-umbilicus area since yesterday. Patient has nausea and vomited once yesterday afternoon. The vomiting were stomach content, no blood in it. Patient denies a fever or diarrhea. His last bowel movement was 2 days ago. Patient has not noticed if he can pass gas or not. In the emergency room abdominal CT has been done, which shows large ventral hernia with a small component of small bowel and colon. Surgical consult was called by ER. Patient was admitted for further management. Past Med Surg Social Fam HX - Past Medical History Medical history: CHF, migraine, other Psychiatric history: no psych history - Past Surgical History Surgical History: cholecystectomy, herniorrhaphy, other - Social History Smoking Status: Never smoker Smokeless Tobacco Status: No Alcohol use: none Drug use: none - Family History Mother Hx Family Cardiac Disorders: Yes (CHF) Father Family Member Ethnicity: Non- Living Status: Internal Medicine - H&P: Meds Terazosin HCl 10 mg PO HS 01/03/16 [History] Aspirin [Lo-Dose Aspirin EC] 81 mg PO DAILY 04/07/18 [History] Furosemide [Lasix] 80 mg PO BID 04/07/18 [History] Potassium Chloride [Klor-Con Sprinkle] 10 meq PO BID 04/07/18 [History] metOLazone [Zaroxolyn] 2.5 mg PO DAILY 04/07/18 [History] 3 Allergy/AdvReac Type Severity Reaction Status Date / Time No Known Allergies Allergy Verified 04/04/18 01:13 All Systems PM: A 10-system review of systems was performed and is negative for pertinent findings except as documented above in the HPI. - Constitutional Vitals: Temp Pulse Resp BP Pulse Ox 98.3 F 56 16 132/77 96 04/07/18 22:56 04/07/18 22:56 04/07/18 22:56 04/07/18 22:56 04/07/18 22:56 General appearance: Present: A&O X 3, no acute distress, answers questions appropriately - Head Head exam: Present: atraumatic, normocephalic - Eye Eye exam: Present: PERRL, conjuntiva pink, sclera anicteric Pupils: Present: PERRL - Neck Neck exam general surgery: Present: supple, trachea midline. Absent: lymphadenopathy - Respiratory Respiratory exam: Present: CTAB. Absent: accessory muscle use, rales, rhonchi, wheezes - Cardiovascular Cardiovascular exam: Present: RRR, +S1, +S2. Absent: diastolic murmur, gallop, rubs, systolic murmur - GI/Abdominal GI/Abdominal exam: Present: distended, normal bowel sounds, soft, tenderness ( Other tenderness on the vj-umbilicus area, no rebound or guarding), no peritoneal signs - Extremities Exam Extremities exam: Present: warm, radial pulses palpable and symmetrical. Absent : calf tenderness, cyanotic, pedal edema - Neurological Exam Neurological exam: Present: CN II-XII intact, oriented X3, no focal deficits. Absent: pronater drift, facial droop, speech deficit - Skin Skin exam: Present: dry, intact Internal Med - H&P Results - Labs CBC & Chem 7: 04/07/18 16:32 04/07/18 16:32 - Assessment and plan (1) Ventral hernia Current Visit: Yes Status: Acute Assessment and plan: Patient has abdominal pain. CT shows ventral hernia. Patient has history of ventral hernia S/P surgery. - Keep patient nothing by mouth, IV fluid - Surgical consult Qualifiers: Obstruction and gangrene presence: without obstruction or gangrene Qualified Code(s): K43.9 - Ventral hernia without obstruction or gangrene (2) DVT prophylaxis Current Visit: Yes Status: Acute Assessment and plan: EPCD. No anticoagulation at this point in case patient needs surgical intervention (3) Abdominal pain Current Visit: Yes Status: Acute Assessment and plan: Management as above Qualifiers: Abdominal location: periumbilical Qualified Code(s): R10.33 - Periumbilical pain (4) HTN (hypertension) Current Visit: No Status: Chronic Assessment and plan: Hydralazine IV when necessary. Resume home medication as patient can restart diet Qualifiers: Hypertension type: essential hypertension Qualified Code(s): I10 - Essential (primary) hypertension (5) Obstructive sleep apnea Current Visit: No Status: Chronic Assessment and plan: Patient uses CPAP at home. Hold CPAP at this point in case causing or worsening abdominal distention. Place patient on nasal cannula oxygen and continuous pulse oximetry monitoring. - Time Spent With Patient Total time spent is greater than 50% in coordination of care (as documented) at patient's floor/unit and/or counseling patient: 40 minutes Greater than 35 minutes
[2018-04-08 05:27] LABS: Basophils # 0.1 K/mcL (0.0-0.2); Basophils % 0.6 %; Eosinophils # 0.2 K/mcL (0.0-0.6); Eosinophils % 2.7 %; Hematocrit 39.9 % (37.5-50.1); Hemoglobin 13.9 g/dL (12.9-16.9); Immature Granulocytes % 0.4 % (0-4); Lymphocytes # 2.1 K/mcL (0.6-4.6); Lymphocytes % 26.7 %; Mean Corpuscular HGB Conc 34.8 g/dL (31.6-35.5); Mean Corpuscular Hemoglobin 32.2 pg (28.0-33.3); Mean Corpuscular Volume 92.4 fL (83.0-100.0); Mean Platelet Volume 9.6 fL (9.4-12.4); Monocytes # 0.7 K/mcL (0.0-1.3); Monocytes % 8.6 %; Neutrophils # 4.7 K/mcL (1.6-8.9); Platelet Count 161 K/mcL (140-400); Red Blood Count 4.32 M/mcL (4.19-5.50); Red Cell Distribution Width 13.2 % (11.5-14.5)
[2018-04-08 07:48] LABS: BUN/Creatinine Ratio 12 (6-26); Blood Urea Nitrogen 13 mg/dL (8-23); Calcium 8.5 mg/dL (8.6-10.3); Carbon Dioxide 31 mEq/L (23-29); Chloride 101 mEq/L (98-107); Glucose 151 mg/dL (70-105); Osmolality,Calculated 289 (280-300); Phosphorous 2.7 mg/dL (2.7-4.5); Potassium 3.7 mEq/L (3.5-5.1); Sodium 138 mEq/L (136-145); eGFR For African Americans > 60 (> 60); eGFR For Non-African Americans > 60 (> 60)
--- NOTE | 2018-04-08 16:19 | Electrocardiograph Report ---
[address] [place] [address] Test Date: 2018-04-07 Pat Name: Ismael Pyle Department: 103 Room: 2A Gender: M Electoral Officer: MENDEZ : 1950 Requested By: Rodriguez Ramesh Order Number: [id number] Reading MD: Sirisha Painting Measurements Intervals [place] Rate: 53 P: 7 ME: 182 QRS: -3 QRSD: 92 T: 2 QT: 442 QTc: 424 Interpretive Statements SINUS BRADYCARDIA Electronically Signed On 04-08-2018 16:17:25 EDT by Sirisha Painting
--- NOTE | 2018-04-08 16:28 | General Surg History&Physical ---
Date of Encounter: 04/08/18 Time of Encounter: 13:30 History of Present Illness Chief complaint: abd pain, recurrent ventral incisional hernia, possible SBO HPI: Mr. Pyle is a 68 year old male referred for further evaluation abdominal pain with nausea and vomiting. CT abdomen/pelvis demonstrated a broad-based ventral hernia containing portions of small bowel without obstruction. The current CT findings are similar to those demonstrated by a CT completed 02/19/2018. The patient presented to [facility] in June 2017 with a similar presentation complaining of abrupt onset abdominal pain, nausea and vomiting. The CT abdomen /pelvis at that time described a large hernia which on my review with [facility] was more consistent with an eventration rather than a true ventral incisional hernia. The patient underwent a small bowel follow-through which demonstrated normal transit of oral contrast to the terminal ileum. Persistent mild to moderately dilated small bowel was less pronounced on the small bowel follow-through than on the CT obtained on presentation to the emergency department. The findings were consistent with a low-grade/partial small bowel obstruction likely due to adhesions related to the prior ventral hernia repair with mesh. The patient was seen in my office in January 2017 to consider surgical intervention, however, he was diagnosed with CHF requiring aggressive diuresis initiated by Dr Painting. Patient has multiple comorbidities that increases risk of repeat ventral hernia repair. These include: Obesity, diastolic congestive heart failure, and obstructive sleep apnea. Additional medical history: Hepatic steatosis; hyperlipidemia, migraines, and possible history of hypertension The patient is currently in no acute distress, there was minimal periumbilical tenderness to my examination. No intra-abdominal masses were detected no peritoneal signs or rebound. The current CT of the abdomen/pelvis was reviewed with [facility], with comparison to two prior CTs. The patient had been provided clear liquids with no abdominal distention, worsening pain, or nausea/ vomiting. Advancing the diet to full liquids will be allowed this evening and if no recurrent symptoms it is likely that the patient will be discharged home in the a.m. with outpatient surgical follow-up in the near future. Surgical history include prior laparoscopic cholecystectomy with lysis of adhesions and release of small bowel obstruction in 2003; ventral incisional hernia repair with mesh, December 2015; ORIF broken nose 2; shoulder surgery/ rotator cuff repair; colonoscopy believed to have been completed in 2010. Allergies: No known drug allergies Medications: Terazosin 10 mg by mouth daily at bedtime Aspirin 81 mg by mouth daily Furosemide 80 mg by mouth twice a day Potassium chloride 10 mEq by mouth twice a day Metolazone 2.5 mg by mouth daily Impression: 68-year-old male referred for further evaluation and possible treatment after presenting to the [facility] emergency department due to abdominal pain with nausea and vomiting. The patient was examined, CT abdomen/pelvis was reviewed and compared to prior CTs. There does not appear to be any progression (enlargement) of the patient's recurrent ventral incisional hernia. There are several fat-containing fascial defects at the caudal margin of the previous mesh repair. The possibility of a Bautista's type hernia cannot be excluded. Surgical intervention is being considered, however, maximizing his medical status/minimizing his risks will be necessary. The patient describes recent cardiac assessment per Dr Painting. I have no information regarding this assessment but will contact [facility] for this information prior to scheduling surgery. I have discussed this in detail with the patient and Dr Freedman, [facility] [place] [facility]. Past Med Surg Social Fam HX - Past Medical History Medical history: CHF, migraine, other Psychiatric history: no psych history - Past Surgical History Surgical History: cholecystectomy, herniorrhaphy, other (Hernia repair, right leg fracture, left rotator cuff surgery,) - Social History Smoking Status: Never smoker Smokeless Tobacco Status: No Alcohol use: none Drug use: none - Family History Mother Hx Family Cardiac Disorders: Yes (CHF) Father Family Member Ethnicity: Non- Living Status: Medications and Allergies Terazosin HCl 10 mg PO HS 01/03/16 [History] Aspirin [Lo-Dose Aspirin EC] 81 mg PO DAILY 04/07/18 [History] Furosemide [Lasix] 80 mg PO BID 04/07/18 [History] Potassium Chloride [Klor-Con Sprinkle] 10 meq PO BID 04/07/18 [History] metOLazone [Zaroxolyn] 2.5 mg PO DAILY 04/07/18 [History] 3 Allergy/AdvReac Type Severity Reaction Status Date / Time No Known Allergies Allergy Verified 04/04/18 01:13 Review of Systems All systems PM: The remainder of the systems were reviewed and are negative General Surgery Exam Initial Vital Signs Temp Pulse Resp BP Pulse Ox 98.4 F 60 18 164/90 95 04/07/18 16:10 04/07/18 16:10 04/07/18 16:10 04/07/18 16:10 04/07/18 16:10 Results - Labs 04/08/18 05:13 04/08/18 06:55 Abnormal lab results Carbon Dioxide 31 mEq/L (23-29) H 04/08/18 06:55 Glucose 151 mg/dL (70-105) H 04/08/18 06:55 Calcium 8.5 mg/dL (8.6-10.3) L 04/08/18 06:55 Diabetes panel 04/08/18 Range/Units 06:55 Sodium 138 (136-145) mEq/L Potassium 3.7 (3.5-5.1) mEq/L Chloride 101 (98-107) mEq/L Carbon Dioxide 31 H (23-29) mEq/L BUN 13 (8-23) mg/dL Creatinine 1.12 (0.70-1.30) mg/dL Glucose 151 H (70-105) mg/dL Calcium 8.5 L (8.6-10.3) mg/dL Calcium panel 04/08/18 Range/Units 06:55 Calcium 8.5 L (8.6-10.3) mg/dL Phosphorus 2.7 (2.7-4.5) mg/dL Pituitary panel 04/08/18 Range/Units 06:55 Sodium 138 (136-145) mEq/L Potassium 3.7 (3.5-5.1) mEq/L Chloride 101 (98-107) mEq/L Carbon Dioxide 31 H (23-29) mEq/L BUN 13 (8-23) mg/dL Creatinine 1.12 (0.70-1.30) mg/dL Glucose 151 H (70-105) mg/dL Calcium 8.5 L (8.6-10.3) mg/dL Adrenal panel 04/08/18 Range/Units 06:55 Sodium 138 (136-145) mEq/L Potassium 3.7 (3.5-5.1) mEq/L Chloride 101 (98-107) mEq/L Carbon Dioxide 31 H (23-29) mEq/L BUN 13 (8-23) mg/dL Creatinine 1.12 (0.70-1.30) mg/dL Glucose 151 H (70-105) mg/dL Calcium 8.5 L (8.6-10.3) mg/dL All other labs normal.
--- NOTE | 2018-04-08 17:31 | Internal Med Progress Note ---
Date of Encounter: 04/08/18 Time of Encounter: 12:00 - Assessment and plan (1) Ventral hernia Current Visit: Yes Status: Acute Assessment and plan: CT shows ventral hernia with a small component of small bowel and colon No obstruction noticed however he is high risk pt cont clear liquid diet Surgery on board will start him on bowel regimen for his constipation Qualifiers: Obstruction and gangrene presence: without obstruction or gangrene Qualified Code(s): K43.9 - Ventral hernia without obstruction or gangrene (2) Abdominal pain Current Visit: Yes Status: Acute Assessment and plan: Management as above Qualifiers: Abdominal location: periumbilical Qualified Code(s): R10.33 - Periumbilical pain (3) Obstructive sleep apnea Current Visit: No Status: Chronic Assessment and plan: Patient uses CPAP at home. Place patient on nasal cannula oxygen and continuous pulse oximetry monitoring. (4) HTN (hypertension) Current Visit: No Status: Chronic Assessment and plan: Resumed home meds Hydralazine IV when necessary Qualifiers: Hypertension type: essential hypertension Qualified Code(s): I10 - Essential (primary) hypertension (5) DVT prophylaxis Current Visit: Yes Status: Acute - Time Spent With Patient Total time spent is greater than 50% in coordination of care (as documented) at patient's floor/unit and/or counseling patient: - Subjective Interval history: Mr. Pyle is a 68 year old male with known past medical history is significant for ventral hernia S/P surgery, ELEUTERIO on CPAP presented to ER for abdominal pain. . Patient to said he started to have abdominal pain in the vj-umbilicus area since yesterday. Patient has nausea and vomited once yesterday afternoon. The vomiting were stomach content, no blood in it. Patient denies a fever or diarrhea. His last bowel movement was 2 days ago. In the emergency room abdominal CT has been done, which shows large ventral hernia with a small component of small bowel and colon. He denied any N/V. Tolerating clear liquid diet ok. No BM yet.. Last BM 2 days ago. - Constitutional Vitals: Temp Pulse Resp BP Pulse Ox 98.5 F 52 16 103/52 95 04/08/18 16:01 04/08/18 16:01 04/08/18 16:01 04/08/18 16:01 04/08/18 16:01 General appearance: Present: A&O X 3, no acute distress, answers questions appropriately - Head Head exam: Present: atraumatic, normal inspection - Respiratory Respiratory exam: Present: decreased breath sounds. Absent: accessory muscle use, rales, rhonchi, wheezes - Cardiovascular Cardiovascular exam: Present: RRR, +S1, +S2. Absent: diastolic murmur, gallop, rubs, systolic murmur - GI/Abdominal GI/Abdominal exam: Present: distended, hypoactive bowel sounds, normal bowel sounds, soft. Absent: rebound, rigid, tenderness - Extremities Exam Extremities exam: Absent: calf tenderness, pedal edema, tenderness - Back Exam Back exam: Absent: CVA tenderness (L), CVA tenderness (R) - Neurological Exam Neurological exam: Present: alert, oriented X3 - Psychiatric Psychiatric exam: Present: normal affect, normal mood Internal Medicine: Result - Labs CBC & Chem 7: 04/08/18 05:13 04/08/18 06:55 Labs: Short CBC 04/08/18 Range/Units 05:13 WBC 7.8 (4.3-11.1) K/mcL Hgb 13.9 (12.9-16.9) g/dL Hct 39.9 (37.5-50.1) % Plt Count 161 (140-400) K/mcL Neutrophils # 4.7 (1.6-8.9) K/mcL BMP 04/08/18 06:55 Sodium 138 Potassium 3.7 Chloride 101 Carbon Dioxide 31 H BUN 13 Creatinine 1.12 Glucose 151 H Calcium 8.5 L Consult Discharge Plan - Plan Referrals: Chelly Rosa, [facility] [Primary Care Provider] -
[2018-04-08] MEDS: Sennosides/Docusate Sodium TABLET PO SCH (20:26)
[2018-04-08] MEDS: Furosemide 40 MG TABLET PO SCH (20:32)
[2018-04-09 07:18] VITALS: BP 104/58
[2018-04-09] MEDS: Furosemide 40 MG TABLET PO SCH (08:12)
[2018-04-09] MEDS: Sennosides/Docusate Sodium TABLET PO SCH (08:12)
[2018-04-09] MEDS ORDERED: metOLazone 2.5 MG TABLET PO SCH (09:00)
[2018-04-09] MEDS ORDERED: Aspirin Enteric Coated 81 MG Tablet PO SCH (09:00)
--- NOTE | 2018-04-09 10:02 | Discharge Summary ---
- NOTES TO OUTPATIENT PROVIDER Notes to Outpatient Provider: f/u with surgery Dr. Hines in 1-2 weeks Date of Encounter: 04/09/18 Time of Encounter: 10:00 - Discharge Diagnosis (1) Ventral hernia Priority: Primary Status: Acute Qualifiers: Obstruction and gangrene presence: without obstruction or gangrene Qualified Code(s): K43.9 - Ventral hernia without obstruction or gangrene (2) Constipation Priority: Primary Status: Acute Qualifiers: Qualified Code(s): K59.00 - Constipation, unspecified (3) Abdominal pain Priority: Primary Status: Acute Qualifiers: Abdominal location: periumbilical Qualified Code(s): R10.33 - Periumbilical pain (4) Obstructive sleep apnea Priority: Secondary Status: Chronic (5) HTN (hypertension) Priority: Secondary Status: Chronic Qualifiers: Hypertension type: essential hypertension Qualified Code(s): I10 - Essential (primary) hypertension (6) DVT prophylaxis Priority: Secondary Status: Acute Hospital course: Mr. Pyle is a 68 year old male with known past medical history is significant for ventral hernia S/P surgery, ELEUTERIO on CPAP presented to ER for abdominal pain. . Patient to said he started to have abdominal pain in the vj-umbilicus area since yesterday. Patient has nausea and vomited once yesterday afternoon. The vomiting were stomach content, no blood in it. Patient denies a fever or diarrhea. His last bowel movement was 2 days ago. In the emergency room abdominal CT has been done, which shows large ventral hernia with a small component of small bowel and colon. He denied any N/V. Started him on stool softeners, he did have BM today Pt stated he is feeling better now. Denied any abdominal pain. Pt was evaluated by surgery and did not recommend any interventions now. Pt tolerating pO intake well , so will d/c him home in stable condition today. - Time Spent with Patient Total time spent providing and/or coordinating discharge services: - Discharge Medications Prescriptions: Sennosides/Docusate Sodium [Senna Plus] 1 each PO DAILY PRN #20 tablet PRN Reason: Constipation Home Medications: Terazosin HCl 10 mg PO HS 01/03/16 [History] Aspirin [Lo-Dose Aspirin EC] 81 mg PO DAILY 04/07/18 [History] Furosemide [Lasix] 80 mg PO BID 04/07/18 [History] Potassium Chloride [Klor-Con Sprinkle] 10 meq PO BID 04/07/18 [History] metOLazone [Zaroxolyn] 2.5 mg PO DAILY 04/07/18 [History] Sennosides/Docusate Sodium [Senna Plus] 1 each PO DAILY PRN #20 tablet 04/09/18 [Rx] Allergies/Adverse Reactions: 3 Allergy/AdvReac Type Severity Reaction Status Date / Time No Known Allergies Allergy Verified 04/04/18 01:13 Date of admission: 04/07/18 21:50 Primary care physician: Chelly Rosa CNP - Constitutional Vitals: Temp Pulse Resp BP Pulse Ox 97.8 F 56 18 104/58 94 04/09/18 07:17 04/09/18 07:17 04/09/18 07:17 04/09/18 07:17 04/09/18 07:17 General appearance: Present: A&O X 3, no acute distress, answers questions appropriately - Head Head exam: Present: atraumatic, normal inspection - Neck Neck exam general surgery: Present: supple - Respiratory Respiratory exam: Present: decreased breath sounds. Absent: rales, respiratory distress, rhonchi, wheezes - Cardiovascular Cardiovascular exam: Present: RRR, +S1, +S2. Absent: tachycardia - GI/Abdominal GI/Abdominal exam: Present: normal bowel sounds, soft. Absent: rebound, rigid, tenderness - Extremities Exam Extremities exam: Absent: calf tenderness, pedal edema, tenderness - Back Exam Back exam: Absent: CVA tenderness (L), CVA tenderness (R) - Neurological Exam Neurological exam: Present: alert, oriented X3 - Patient Status Disposition: Home, Self-Care Condition: Good Overall status at discharge: patient is back to baseline - Discharge Instructions Follow Up With: Chelly Rosa CNP [Primary Care Provider] - - Diet and Activity Activity: increase activity as tolerated Diet: low salt diet
== END 2018-04-09 11:00 | disposition home or self-care (01) ==
LOC: EMEROO 16:08 → 2ANU 16:08
PROVIDERS: ADMIT Internal Medicine; ATTEND Internal Medicine

== ENCOUNTER 2018-05-11 18:34 | Inpatient (IN) ==
[2018-05-11] MEDS ORDERED: *HR* FentaNYL (PF) 100 MCG/2 ML VIAL IVP ONE ×2 (19:16→20:04)
[2018-05-11] MEDS ORDERED: Ondansetron 4 MG/2 ML VIAL IVP ONE (19:16)
--- NOTE | 2018-05-11 19:23 | Emergency Department Note ---
Disposition Clinical Impression: Small bowel obstruction Disposition: Admitted As Inpatient Referrals: Chelly Rosa CNP [Primary Care Provider] - Forms: ED Satisfaction Letter, Work/School Release Time of Disposition: 20:45 Abdominal Pain HPI - General Chief Complaint: ED Abdominal Pain Stated Complaint: Abdominal Pain Time Seen by Provider: 05/11/18 19:02 Source: patient, EMS Mode of arrival: ambulatory Limitations: no limitations Nursing Notes Reviewed: Yes Vital Signs Reviewed: Yes - History of Present Illness HPI Narrative: 68yo male past medical history of small bowel obstruction, CHF presented to [facility] complaining of abdominal pain concerning for small bowel obstruction. He reports that he started having the pain around noon and it has progressively worsened in intensity and nothing has improved the pain. He describes it as a sharpness that is intermittent. His last bowel movement was at 4:30 AM this morning. Additionally he had nausea. He denies fever, chills, chest pain, shortness of breath, passing gas, bowel movements. He follows with Dr. posada for his small bowel obstructions and reports that he was supposed to have surgery at some point due to his recurrent small bowel obstructions. Pain Scale: 10 - Related Data Home Medications Medication Instructions Recorded Confirmed Terazosin HCl 10 mg PO HS 01/03/16 05/11/18 Aspirin [Lo-Dose Aspirin EC] 81 mg PO DAILY 04/07/18 05/11/18 Furosemide [Lasix] 80 mg PO BID 04/07/18 05/11/18 Potassium Chloride [Klor-Con 10 meq PO BID 04/07/18 05/11/18 Sprinkle] metOLazone [Zaroxolyn] 2.5 mg PO DAILY 04/07/18 05/11/18 Dicyclomine [Bentyl] 20 mg PO QID 05/11/18 05/11/18 Previous Rx's Medication Instructions Recorded Sennosides/Docusate Sodium [Senna 1 each PO DAILY PRN #20 tablet 04/09/18 Plus] Allergies Allergy/AdvReac Type Severity Reaction Status Date / Time No Known Allergies Allergy Verified 04/04/18 01:13 All systems ED: reviewed and negative except as stated. Review of Systems: As Per HPI Constitutional: Denies: fever, chills Cardiovascular: Denies: chest pain, palpitations Respiratory: Denies: cough, dyspnea Gastrointestinal: Reports: abdominal pain, nausea. Denies: vomiting Integumentary: Denies: rash Neurological: Denies: headache Hematological/Lymphatic: Denies: easy bleeding Abdominal Pain PMH - Past Medical History Medical history: Reports: CHF, migraine, other Male Surgical History: Reports: cholecystectomy, herniorrhaphy Psychiatric history: Reports: no psych history - Social History Smoking status: Never smoker Alcohol use: Reports: none Drug use: Reports: none Physical Exam - General Limitations: no limitations General appearance: alert, in no apparent distress - Head Head exam: atraumatic, normocephalic - Eye Eye exam: Present: normal appearance - Respiratory Respiratory exam: Present: normal lung sounds bilaterally. Absent: wheezes - Cardiovascular Cardiovascular exam: Present: regular rate, normal rhythm - Abdominal Exam Abdominal exam: Present: soft, tenderness, distention, diminished bowel sounds. Absent: guarding, rebound - Extremities Exam Extremities exam: Present: normal inspection. Absent: tenderness - Neurological Exam Neurological exam: Present: alert, oriented X3 - Psychiatric Psychiatric exam: Present: normal affect, normal mood - Skin Skin exam: Present: dry, intact Course Course Narrative: 68yo male past medical history of small bowel obstruction, CHF presented to [facility] complaining of abdominal pain concerning for small bowel obstruction. He reports that he started having the pain around noon in that it has progressively worsened in intensity. He describes as a sharpness that is located primarily in is epigastric region. His last bowel movement was at 4:30 AM this morning. Additionally he had nausea. He denies fever, chills, chest pain, shortness of breath. This is likely a small bowel obstruction. However differential includes diverticulitis, pancreatitis, kidney stone. Will order CBC, BMP, hepatic panel, CT abdomen, PT/INR, lactic acid, lipase. TTE 04/2017 EF 60%, mild diastolic dysfunction. Vital Signs Temperature 98.1 F 05/11/18 18:37 Pulse Rate 77 05/11/18 18:37 Respiratory Rate 20 05/11/18 18:37 Blood Pressure 148/80 05/11/18 18:37 O2 Sat by Pulse Oximetry 95 05/11/18 18:37 Temperature 98.1 F 05/11/18 18:37 Pulse Rate 77 05/11/18 18:37 Respiratory Rate 20 05/11/18 18:37 Blood Pressure 148/80 05/11/18 18:37 O2 Sat by Pulse Oximetry 95 05/11/18 18:37 Oxygen Delivery Oxygen Delivery Room Air Abdominal Pain - MDM Narrative Medical decision making narrative: 68yo male past medical history of small bowel obstruction, CHF presented to [facility] complaining of abdominal pain concerning for small bowel obstruction. He reports that he started having the pain around noon and it has progressively worsened in intensity and nothing has improved the pain. He describes it as a sharpness. His last bowel movement was at 4:30 AM this morning. Additionally he had nausea. He denies fever, chills, chest pain, shortness of breath, passing gas, bowel movements. He follows with Dr. posada for his small bowel obstructions and reports that he was supposed to have surgery at some point due to his recurrent small bowel obstructions. WBC minimally elevated. BMP, lactic acid, lipase, hepatic panel unremarkable. CT of abdomen demonstrated mid small bowel mechanical obstruction. Contacted Dr. posada of general surgery who is his patient's general surgeon and he is aware of the patient and will follow along with treatment.. Will keep patient NPO, IV fluids, fentanyl. Admit to the hospitalist. - Differential Diagnosis Differential Diagnosis: Likely: AAA, calculus of kidney, diverticulitis, small bowel obstruction - Medical Records Medical records reviewed: Yes I reviewed the patient's medical records. - Lab Data Lab results reviewed: Yes I reviewed the patient's lab results. Result diagrams: 05/11/18 19:31 05/11/18 19:31 Lab Results 05/11/18 05/11/18 05/11/18 Range/Units 19:31 19:31 19:31 WBC 11.5 H (4.3-11.1) K/mcL RBC 4.29 (4.19-5.50) M/mcL Hgb 14.3 (12.9-16.9) g/dL Hct 40.6 (37.5-50.1) % MCV 94.6 (83.0-100.0) fL MCH 33.3 (28.0-33.3) pg MCHC 35.2 (31.6-35.5) g/dL RDW 13.8 (11.5-14.5) % Plt Count 168 (140-400) K/mcL MPV 9.7 (9.4-12.4) fL Immature Gran % 0.5 (0-4) % Seg Neutrophils % 79.6 % Lymphocytes % 12.3 % Monocytes % 6.3 % Eosinophils % 1.0 % Basophils % 0.3 % Neutrophils # 9.2 H (1.6-8.9) K/mcL Lymphocytes # 1.4 (0.6-4.6) K/mcL Monocytes # 0.7 (0.0-1.3) K/mcL Eosinophils # 0.1 (0.0-0.6) K/mcL Basophils # 0.0 (0.0-0.2) K/mcL PT (9.4-12.1) Seconds INR Sodium 140 (136-145) mEq/L Potassium 3.7 (3.5-5.1) mEq/L Chloride 105 (98-107) mEq/L Carbon Dioxide 23 (23-29) mEq/L BUN 16 (8-23) mg/dL Creatinine 1.05 (0.70-1.30) mg/dL Est GFR ( Amer) > 60 (> 60) Est GFR (Non-Af Amer) > 60 (> 60) BUN/Creatinine Ratio 15 (6-26) Glucose 186 H (70-105) mg/dL Calculated Osmolality 296 (280-300) Lactic Acid 1.8 (0.5-2.2) mmol/L Calcium 9.2 (8.6-10.3) mg/dL Total Bilirubin 0.7 (0.3-1.0) mg/dL Direct Bilirubin 0.2 (0.0-0.2) mg/dL Indirect Bilirubin 0.5 (0.0-1.2) mg/dL AST 20 (13-39) Units/L ALT 17 (7-52) Units/L Alkaline Phosphatase 42 (34-104) Units/L Serum Total Protein 6.7 (6.4-8.9) g/dL Albumin 3.8 (3.5-5.7) g/dL Globulin 2.9 (2.4-3.5) g/dL Albumin/Globulin Ratio 1.3 (1.1-2.2) Lipase 21 (11-82) Units/L // Range/Units 19:31 WBC (4.3-11.1) K/mcL RBC (4.19-5.50) M/mcL Hgb (12.9-16.9) g/dL Hct (37.5-50.1) % MCV (83.0-100.0) fL MCH (28.0-33.3) pg MCHC (31.6-35.5) g/dL RDW (11.5-14.5) % Plt Count (140-400) K/mcL MPV (9.4-12.4) fL Immature Gran % (0-4) % Seg Neutrophils % % Lymphocytes % % Monocytes % % Eosinophils % % Basophils % % Neutrophils # (1.6-8.9) K/mcL Lymphocytes # (0.6-4.6) K/mcL Monocytes # (0.0-1.3) K/mcL Eosinophils # (0.0-0.6) K/mcL Basophils # (0.0-0.2) K/mcL PT 11.8 (9.4-12.1) Seconds INR 1.1 Sodium (136-145) mEq/L Potassium (3.5-5.1) mEq/L Chloride (98-107) mEq/L Carbon Dioxide (23-29) mEq/L BUN (8-23) mg/dL Creatinine (0.70-1.30) mg/dL Est GFR ( Amer) (> 60) Est GFR (Non-Af Amer) (> 60) BUN/Creatinine Ratio (6-26) Glucose (70-105) mg/dL Calculated Osmolality (280-300) Lactic Acid (0.5-2.2) mmol/L Calcium (8.6-10.3) mg/dL Total Bilirubin (0.3-1.0) mg/dL Direct Bilirubin (0.0-0.2) mg/dL Indirect Bilirubin (0.0-1.2) mg/dL AST (13-39) Units/L ALT (7-52) Units/L Alkaline Phosphatase (34-104) Units/L Serum Total Protein (6.4-8.9) g/dL Albumin (3.5-5.7) g/dL Globulin (2.4-3.5) g/dL Albumin/Globulin Ratio (1.1-2.2) Lipase (11-82) Units/L - Radiology Data Radiology results reviewed: Yes I reviewed the patient's radiology results.
[2018-05-11 19:44] LABS: Basophils % 0.3 %; Eosinophils # 0.1 K/mcL (0.0-0.6); Hematocrit 40.6 % (37.5-50.1); Hemoglobin 14.3 g/dL (12.9-16.9); Immature Granulocytes % 0.5 % (0-4); Lymphocytes # 1.4 K/mcL (0.6-4.6); Lymphocytes % 12.3 %; Mean Corpuscular HGB Conc 35.2 g/dL (31.6-35.5); Mean Corpuscular Hemoglobin 33.3 pg (28.0-33.3); Mean Corpuscular Volume 94.6 fL (83.0-100.0); Mean Platelet Volume 9.7 fL (9.4-12.4); Monocytes # 0.7 K/mcL (0.0-1.3); Monocytes % 6.3 %; Neutrophils # 9.2 K/mcL (1.6-8.9); Platelet Count 168 K/mcL (140-400); Red Blood Count 4.29 M/mcL (4.19-5.50); Red Cell Distribution Width 13.8 % (11.5-14.5); Segmented Neutrophils % 79.6 %
[2018-05-11 19:51] LABS: INR 1.1; Prothrombin Time 11.8 Seconds (9.4-12.1)
[2018-05-11 20:08] LABS: Alanine Aminotransferase 17 Units/L (7-52); Albumin 3.8 g/dL (3.5-5.7); Albumin/Globulin Ratio 1.3 (1.1-2.2); Alkaline Phosphatase 42 Units/L (34-104); Aspartate Amino Transferase 20 Units/L (13-39); BUN/Creatinine Ratio 15 (6-26); Bilirubin,Direct 0.2 mg/dL (0.0-0.2); Bilirubin,Indirect 0.5 mg/dL (0.0-1.2); Bilirubin,Total 0.7 mg/dL (0.3-1.0); Blood Urea Nitrogen 16 mg/dL (8-23); Calcium 9.2 mg/dL (8.6-10.3); Carbon Dioxide 23 mEq/L (23-29); Chloride 105 mEq/L (98-107); Globulin 2.9 g/dL (2.4-3.5); Glucose 186 mg/dL (70-105); Lipase 21 Units/L (11-82); Osmolality,Calculated 296 (280-300); Potassium 3.7 mEq/L (3.5-5.1); Sodium 140 mEq/L (136-145); Total Protein 6.7 g/dL (6.4-8.9); eGFR For African Americans > 60 (> 60); eGFR For Non-African Americans > 60 (> 60)
--- NOTE | 2018-05-11 20:35 | Emergency Department Note ---
START Narrative - START START: I examined this patient and my medical decision-making was reviewed with the Resident Physician. I agree with the documented findings, disposition and treatment plan as described except to the extent set forth below. 68-year-old male presents emergency room for abdominal pain. History of previous hernia repair with graft. Has subsequent increasing abdominal pain and distention consistent with a mid small bowel mechanical obstruction. Patient follows with Dr. posada. We will consult with him from the emergency room for admission. His lactate is negative. White count is stable. Vitals are stable. Pain is under control now after second dose of pain medication. He states his nausea is better. He said no vomiting but states has felt nauseated at times. He is not moving any gas from below. This is been a recurrent problem for him. Again he does follow with Dr. posada as his primary patient for these issues. He is hemodynamically stable at this time. His heart rate is normal.
[2018-05-11] MEDS ORDERED: Ondansetron ODT 4 MG TAB.RAPDIS SL PRN (22:35)
[2018-05-11] MEDS ORDERED: OXYCODONE Oral CONC 10 MG/0.5 ML ORAL.SYG SL PRN (22:35)
[2018-05-11] MEDS ORDERED: Naloxone 0.4 MG/ML INJ IVP PRN (22:35)
[2018-05-12] MEDS: 0.9 % Sodium Chloride 1,000 ML IVC SCH ×3 (00:46→19:18)
[2018-05-12] MEDS ORDERED: OXYCODONE Oral CONC 10 MG/0.5 ML ORAL.SYG SL ONE (02:10)
[2018-05-12] MEDS ORDERED: *HR* FentaNYL (PF) 100 MCG/2 ML VIAL IVP ONE ×2 (03:11→03:32)
[2018-05-12 04:01] LABS: Hematocrit 42.1 % (37.5-50.1); Hemoglobin 14.8 g/dL (12.9-16.9); Mean Corpuscular HGB Conc 35.2 g/dL (31.6-35.5); Mean Corpuscular Volume 93.8 fL (83.0-100.0); Mean Platelet Volume 9.8 fL (9.4-12.4); Platelet Count 171 K/mcL (140-400); Red Blood Count 4.49 M/mcL (4.19-5.50); Red Cell Distribution Width 13.7 % (11.5-14.5)
[2018-05-12 04:20] LABS: BUN/Creatinine Ratio 17 (6-26); Blood Urea Nitrogen 18 mg/dL (8-23); Calcium 9.1 mg/dL (8.6-10.3); Carbon Dioxide 22 mEq/L (23-29); Chloride 104 mEq/L (98-107); Glucose 237 mg/dL (70-105); Osmolality,Calculated 292 (280-300); Potassium 3.8 mEq/L (3.5-5.1); Sodium 136 mEq/L (136-145); eGFR For African Americans > 60 (> 60); eGFR For Non-African Americans > 60 (> 60)
[2018-05-12] MEDS ORDERED: 0.9 % Sodium Chloride 1,000 ML IVC ONE (04:35)
[2018-05-12] MEDS ORDERED: *HR* HYDROmorphone 20 MG/20 ML PCA IVC PRN ×2 (05:34→18:02)
[2018-05-12] MEDS ORDERED: Ondansetron 4 MG/2 ML VIAL IVP PRN ×2 (05:36→18:02)
[2018-05-12] MEDS ORDERED: *HR* Heparin 5,000 UNIT/ML VIAL SQ SCH (06:00)
--- NOTE | 2018-05-12 06:06 | General Surgery Consult Note ---
Date of Encounter: 05/12/18 Time of Encounter: 05:20 History of Present Illness Reason for consult: abdominal pain Requesting physician: Deven Jaquez History of present illness: Called to see patient for increasing abdominal pain. The patient presented to the [facility] ED yesterday afternoon, 05/11/19, with new onset periumbilical abdominal pain since approximately noon. The pain had worsened over the course of the afternoon prompting him to present to the emergency department for further evaluation. The patient complained of nausea but no vomiting. His primary complaint is pain. The patient admits to "carrying water", which entails a great deal of lifting, prior to the onset of his abdominal pain. The patient is familiar to me having presented in June 2017, and March 2018 with similar symptoms. On those particular occasions the patient's symptoms resolved rapidly allowing patient to be discharged to follow-up as an outpatient. CT abdomen and pelvis completed 02/19/2018 and 04/07/2018 demonstrated similar findings, however, the CT abdomen and pelvis completed yesterday demonstrates a distinct transition zone on the right margin of the ventral hernia mesh graft. There is an adjacent, small, fat-containing hernia which may represent a Bautista's hernia. Since admission the patient is complained of worsening abdominal pain not controlled by oral or sublingual medications. The pain is localized to the periumbilical region. The rest of the abdomen was soft, quiet and nontender. Past medical history: Truncal obesity; hepatic steatosis; hyperlipidemia migraines and diastolic CHF. The patient was last seen in my office several weeks ago related to his hospital presentation 04/07/18. The patient had been referred to cardiology for potential preoperative assessment. Dr. Painting, had evaluated the patient and deemed the patient cardiac stable to proceed with surgery should it become necessary. Allergies: No known drug allergies Medications: Per ER records Terazosin 10 mg by mouth daily at bedtime Aspirin 81 mg by mouth daily Furosemide 80 mg by mouth twice a day Potassium 10 mEq by mouth twice a day Metolazone 2.5 mg by mouth daily Dicyclomine 20 mg by mouth 4 times a day Social history: Patient is , lives with his spouse; he he has never smoked; he denies any alcohol or illicit drug use Physical examination: Truncally obese male lying quietly in his hospital bed. He does not appear to be in acute distress. NG is in place draining thin, watery, bilious fluid The patient has been afebrile since admission, currently 97.8; pulse 63, respirations 12, blood pressure 145/85. The patient is on 2 L/m nasal cannula; SPO2 96%. Skin: Moist, no obvious jaundice Lungs: Clear, no abdominal pain on deep inspiration or cough Cardiac: Regular rate, no appreciable murmurs Abdomen protuberant as it usually is; soft with tenderness localized cephalad to the umbilicus, essentially in the midline. The small, fat-containing hernia described on CT is not palpable. Few bowel sounds were audible during extended auscultation I did not elicit any peritoneal signs or rebound. Laboratories: White count 12.8 (on presentation to the emergency department 11.5 ); hemoglobin 14.8 with hematocrit 42.1. Platelet count 171,000 Electrolytes, BUN, creatinine within normal limits and stable since admission to the emergency department. Bicarbonate has fallen to 22. LFTs within normal limits. CT abdomen/pelvis reviewed and compared to previous imaging 01/2018 and 03/2018 Impression: Recurrent abdominal pain with radiologic findings of small bowel obstruction related to small bowel adherent to previous mesh repair. There is a transition zone at the lateral margin of the mesh repair which was not evident on previous CTs. These findings plus the patient's complaints of worsening abdominal pain warrant surgical intervention. Findings and recommendations for surgery have been discussed with the patient. Risks include hemorrhage, infection, intra- abdominal abscess, injury to adjacent structures such as colon and small bowel, cardiac dysrhythmia, worsening congestive heart failure, pneumonia. Surgical consent has been obtained. Plan: Exploratory celiotomy later today. WAISTLINE JOINER OVERLOCK Dilaudid will be administered for pain until surgery Patient to remain NPO, continue NG drainage, continue IV fluids (H&H has increased since admission consistent with mild hemoconcentration likely due to the patient's current presentation and acute symptoms. Past Med Surg Social Fam HX - Past Medical History Medical history: CHF, migraine, other Additional medical history: Multiple Bowel Obstructions Psychiatric history: no psych history - Past Surgical History Surgical History: cholecystectomy, herniorrhaphy, other (Hernia repair, right leg fracture, left rotator cuff surgery,) Additional surgical history: 2 bowel obstruction - Social History Smoking Status: Never smoker Smokeless Tobacco Status: No Alcohol use: none Drug use: none - Family History Mother Hx Family Cardiac Disorders: Yes (CHF) Father Family Member Ethnicity: Non- Living Status: Medications and Allergies Terazosin HCl 10 mg PO HS 01/03/16 [History] Aspirin [Lo-Dose Aspirin EC] 81 mg PO DAILY 04/07/18 [History] Furosemide [Lasix] 80 mg PO BID 04/07/18 [History] Potassium Chloride [Klor-Con Sprinkle] 10 meq PO BID 04/07/18 [History] metOLazone [Zaroxolyn] 2.5 mg PO DAILY 04/07/18 [History] Sennosides/Docusate Sodium [Senna Plus] 1 each PO DAILY PRN #20 tablet 04/09/18 [Rx] Dicyclomine [Bentyl] 20 mg PO QID 05/11/18 [History] 3 Allergy/AdvReac Type Severity Reaction Status Date / Time No Known Allergies Allergy Verified 04/04/18 01:13 Review of Systems All systems PM: The remainder of the systems were reviewed and are negative General Surgery Exam Initial Vital Signs Temp Pulse Resp BP Pulse Ox 98.1 F 77 20 148/80 95 05/11/18 18:37 05/11/18 18:37 05/11/18 18:37 05/11/18 18:37 05/11/18 18:37 Exam Initial Vital Signs Temp Pulse Resp BP Pulse Ox 98.1 F 77 20 148/80 95 05/11/18 18:37 05/11/18 18:37 05/11/18 18:37 05/11/18 18:37 05/11/18 18:37 Results - Labs 05/12/18 03:46 05/12/18 03:46 Abnormal lab results WBC 12.8 K/mcL (4.3-11.1) H 05/12/18 03:46 Neutrophils # 9.2 K/mcL (1.6-8.9) H 05/11/18 19:31 Carbon Dioxide 22 mEq/L (23-29) L 05/12/18 03:46 Glucose 237 mg/dL (70-105) H 05/12/18 03:46 Diabetes panel 05/12/18 Range/Units 03:46 Sodium 136 (136-145) mEq/L Potassium 3.8 (3.5-5.1) mEq/L Chloride 104 (98-107) mEq/L Carbon Dioxide 22 L (23-29) mEq/L BUN 18 (8-23) mg/dL Creatinine 1.06 (0.70-1.30) mg/dL Glucose 237 H (70-105) mg/dL Calcium 9.1 (8.6-10.3) mg/dL Calcium panel 05/12/18 Range/Units 03:46 Calcium 9.1 (8.6-10.3) mg/dL Pituitary panel 05/12/18 Range/Units 03:46 Sodium 136 (136-145) mEq/L Potassium 3.8 (3.5-5.1) mEq/L Chloride 104 (98-107) mEq/L Carbon Dioxide 22 L (23-29) mEq/L BUN 18 (8-23) mg/dL Creatinine 1.06 (0.70-1.30) mg/dL Glucose 237 H (70-105) mg/dL Calcium 9.1 (8.6-10.3) mg/dL Adrenal panel 05/12/18 Range/Units 03:46 Sodium 136 (136-145) mEq/L Potassium 3.8 (3.5-5.1) mEq/L Chloride 104 (98-107) mEq/L Carbon Dioxide 22 L (23-29) mEq/L BUN 18 (8-23) mg/dL Creatinine 1.06 (0.70-1.30) mg/dL Glucose 237 H (70-105) mg/dL Calcium 9.1 (8.6-10.3) mg/dL All other labs normal. Consult Discharge Plan - Plan Referrals: Chelly Rosa, [facility] [Primary Care Provider] -
--- NOTE | 2018-05-12 06:12 | Internal Med History&Physical ---
Date of Encounter: 05/12/18 Time of Encounter: 20:50 Internal Medicine - H&P: HPI Admitted From: Home Plans for Post Hospital Care: Home History of present illness: Mr. Pyle is a 68 year old male Patient states his abdominal pain started at around noon, he has been feeling nauseous and notes that his last bowel movement was early in the morning day prior to admission. He is not passing gas either. He follows up with Dr. Posada, and has had multiple small bowel obstructions in the past. He states that he is to have surgery at some point in the future but is unsure exactly when. He denies fever, cough, chest pain, shortness of breath and vomiting. His abdominal pain is diffuse across his abdomen which appears distended. CT in the emergency room showed a mid small bowel obstruction along the ventral hernia graft medial to the right rectus muscle. He incidentally was found to have a nonobstructing left renal calculus as well. Past Med Surg Social Fam HX - Past Medical History Medical history: CHF, migraine, other Additional medical history: Multiple Bowel Obstructions Psychiatric history: no psych history - Past Surgical History Surgical History: cholecystectomy, herniorrhaphy, other (Hernia repair, right leg fracture, left rotator cuff surgery,) Additional surgical history: 2 bowel obstruction - Social History Smoking Status: Never smoker Smokeless Tobacco Status: No Alcohol use: none Drug use: none - Family History Mother Hx Family Cardiac Disorders: Yes (CHF) Father Family Member Ethnicity: Non- Living Status: Internal Medicine - H&P: Meds Terazosin HCl 10 mg PO HS 01/03/16 [History] Aspirin [Lo-Dose Aspirin EC] 81 mg PO DAILY 04/07/18 [History] Furosemide [Lasix] 80 mg PO BID 04/07/18 [History] Potassium Chloride [Klor-Con Sprinkle] 10 meq PO BID 04/07/18 [History] metOLazone [Zaroxolyn] 2.5 mg PO DAILY 04/07/18 [History] Sennosides/Docusate Sodium [Senna Plus] 1 each PO DAILY PRN #20 tablet 04/09/18 [Rx] Dicyclomine [Bentyl] 20 mg PO QID 05/11/18 [History] 3 Allergy/AdvReac Type Severity Reaction Status Date / Time No Known Allergies Allergy Verified 04/04/18 01:13 All Systems PM: A 10-system review of systems was performed and is negative for pertinent findings except as documented above in the HPI. - Constitutional Vitals: Temp Pulse Resp BP Pulse Ox 97.8 F 63 12 145/85 96 05/12/18 03:52 05/12/18 03:52 05/12/18 03:52 05/12/18 03:52 05/12/18 03:52 General appearance: Present: A&O X 3, obese Exam: Moderate distress - Head Head exam: Present: normal inspection - Eye Eye exam: Present: EOMI, normal appearance - Respiratory Respiratory exam: Present: CTAB. Absent: rales, rhonchi - Cardiovascular Cardiovascular exam: Present: RRR. Absent: diastolic murmur, systolic murmur - GI/Abdominal GI/Abdominal exam: Present: diminished bowel sounds, distended, guarding, hypoactive bowel sounds, tenderness - Extremities Exam Extremities exam: Present: warm. Absent: tenderness - Neurological Exam Neurological exam: Present: oriented X3, no focal deficits - Skin Skin exam: Present: normal color, warm. Absent: erythema Internal Med - H&P Results - Labs CBC & Chem 7: 05/12/18 03:46 05/12/18 03:46 Labs: Short CBC 05/12/18 Range/Units 03:46 WBC 12.8 H (4.3-11.1) K/mcL Hgb 14.8 (12.9-16.9) g/dL Hct 42.1 (37.5-50.1) % Plt Count 171 (140-400) K/mcL BMP 05/12/18 03:46 Sodium 136 Potassium 3.8 Chloride 104 Carbon Dioxide 22 L BUN 18 Creatinine 1.06 Glucose 237 H Calcium 9.1 - Impressions ITS Impressions KUB X-Ray 05/12/18 01:32 IMPRESSION: Slight proximal positioning of esophagogastric tube. Recommend advancing 05-2010 cm. D/ / Remy Ocampo / Remy Ocampo Interpreting Provider: Remy Ocampo - Assessment and plan (1) Small bowel obstruction Current Visit: Yes Status: Acute Assessment and plan: As evidenced by patient's imaging which showed mid small bowel obstruction along ventral hernia graft medial to the right rectus muscle, patient also has an extensive history of this in the past. In the emergency room his pain was controlled by fentanyl, however during the night patient's pain continued to worsen despite additional doses of fentanyl and sublingual oxycodone. Patient' s lactate also increased from his initial presentation from 1.8 to 2.2. Due to patient's worsening condition I notified Dr. Posada, general surgeon who saw the patient this morning. Follow-up recommendations from Dr. posada's note: APPAREL CUTTER pump started until surgery later today. (2) Abdominal pain Current Visit: Yes Status: Acute Assessment and plan: Patient's abdominal pain worsened through the night, despite fentanyl and oxycodone. Likely secondary to small bowel obstruction for which patient has extended history with. General surgeon called for evaluation. Patient will be taken to surgery today. APPAREL CUTTER pump started by general surgery Continue NG tube Nothing by mouth in anticipation for surgery later. Qualifiers: Abdominal location: periumbilical Qualified Code(s): R10.33 - Periumbilical pain (3) Constipation Current Visit: Yes Status: Acute Assessment and plan: Patient has not had a bowel movement since yesterday at 4:30 in the morning, likely related to small bowel obstruction. Consider bowel regimen once finished with surgery. Qualifiers: Constipation type: unspecified constipation type Qualified Code(s): K59.00 - Constipation, unspecified (4) Obstipation Current Visit: Yes Status: Acute Assessment and plan: Patient not passing gas secondary to small bowel obstruction. Patient also has worsening abdominal pain and distention. Gen. surgery notified as indicated above. Patient going to surgery later today. (5) Congestive heart failure Current Visit: Yes Status: Acute Assessment and plan: Stable, continue to monitor, particularly with IV fluids. Qualifiers: Qualified Code(s): I50.9 - Heart failure, unspecified - Time Spent With Patient Total time spent is greater than 50% in coordination of care (as documented) at patient's floor/unit and/or counseling patient: Greater than 35 minutes
[2018-05-12] MEDS ORDERED: Furosemide 40 MG/4 ML VIAL IVP SCH (08:00)
--- NOTE | 2018-05-12 08:27 | Anesthesia Evaluation PreOp ---
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: Denies Any Significant HX Other Medical History: Diabetes Type II (diet controlled), Other (obesity BMI= 45.4, BPH) Anesthesia History: No Prior Anesthetic Complications, Past Anesthesia Alcohol Use: none Drug use: none Medications and Allergies Terazosin HCl 10 mg PO HS 01/03/16 [History] Aspirin [Lo-Dose Aspirin EC] 81 mg PO DAILY 04/07/18 [History] Furosemide [Lasix] 80 mg PO BID 04/07/18 [History] Potassium Chloride [Klor-Con Sprinkle] 10 meq PO BID 04/07/18 [History] metOLazone [Zaroxolyn] 2.5 mg PO DAILY 04/07/18 [History] Sennosides/Docusate Sodium [Senna Plus] 1 each PO DAILY PRN #20 tablet 04/09/18 [Rx] Dicyclomine [Bentyl] 20 mg PO QID 05/11/18 [History] 3 Allergy/AdvReac Type Severity Reaction Status Date / Time No Known Allergies Allergy Verified 04/04/18 01:13 - Meds/Allergy Pre-op Review Medications Reviewed: Yes Allergies Reviewed: Yes Beta Blockers on Current Med List: No Anesthesia Results - Labs 05/12/18 03:46 05/12/18 03:46 - Imaging EKG: report reviewed (04/07/2018 SINUS BRADYCARDIA) Additional studies: 09/10/2017 Stress Impressions: Stress ECG was negative for ischemia. Exercise capacity was fair. Patient achieved 95% of MPHR. Normal hemodynamic response to exercise. No arrhythmias noted with stress. Patient had no chest pain with stress. 05/07/2017 Echo Impressions: LVEF 60%. Mild left ventricular diastolic dysfunction. Definity echo contrast was used. Suboptimal PLAX measurements. Visually, LV size and wall thickness appear normal. RV is not well visualized. Valves were suboptimally visualized. No evidence for dysfunction by Doppler. No significant TR gradient to estimate RVSP. IVC is not visualized. 05/07/2017 Stress Impression: Gated LVEF = 63%. Perfusion imaging was negative for ischemia or infarct. Anesthesia Exam Vital Signs/O2 Sat/Glucose, Most Recent Temp Pulse Resp BP Pulse Ox 97.4 F L 88 15 133/75 94 05/12/18 06:53 05/12/18 06:53 05/12/18 06:53 05/12/18 06:53 05/12/18 06:53 Blood Glucose* 203 Height: 5'9''/1.75m Weight: 307 lbs/139.6 kg NPO (# of Hours): 8 Pain Scale: 0 Pain Scale Used: Numeric (1 - 10) - HEENT Pupil (Motor): EOMI Mallampati: III Teeth: Normal, Missing Oral Opening: Greater than 3 - OIL FIELD EQUIPMENT MECHANIC LOC: Oriented OIL FIELD EQUIPMENT MECHANIC Motor: Normal RUE, Normal RLE, Normal LLE, Normal Face, Deficit LUE OIL FIELD EQUIPMENT MECHANIC Sensory: Normal: RUE, LUE, Face, Deficit: RLE (neuropathy), LLE (neuropathy) - Cardiac Rhythm: Regular Murmur: None - Pulmonary Breath Sounds: bilateral Clear Respiratory Effort: Symmetrical Anesthesia Assess/Plan ASA Score: 3 Modified Sukhjinder Scale for Level of Consciousness: Cooperative, oriented, and tranquil Anesthetic Plan: General Monitoring Plan: Standard Monitors Recovery Plan: PACU
--- NOTE | 2018-05-12 09:22 | Internal Med Progress Note ---
<Esperanza Ventura - Last Filed: 05/12/18 09:19> Date of Encounter: 05/12/18 Time of Encounter: 09:19 - Assessment and plan (1) Small bowel obstruction Current Visit: Yes Status: Acute Assessment and plan: As evidenced by patient's imaging which showed mid small bowel obstruction along ventral hernia graft medial to the right rectus muscle, patient also has an extensive history of this in the past. In the emergency room his pain was controlled by fentanyl, however during the night patient's pain continued to worsen despite additional doses of fentanyl and sublingual oxycodone. Patient' s lactate also increased from his initial presentation from 1.8 to 2.2. GREASE PRESS HELPER pump started until surgery later today. Dr. Hines plans for surgery today (2) Abdominal pain Current Visit: Yes Status: Acute Assessment and plan: Patient's abdominal pain worsened through the night, despite fentanyl and oxycodone. Likely secondary to small bowel obstruction for which patient has extended history with. Patient will be taken to surgery today. GREASE PRESS HELPER pump started by general surgery Continue NG tube Nothing by mouth in anticipation for surgery later. Qualifiers: Abdominal location: periumbilical Qualified Code(s): R10.33 - Periumbilical pain (3) Constipation Current Visit: Yes Status: Acute Assessment and plan: Consider bowel regimen once finished with surgery. Qualifiers: Constipation type: unspecified constipation type Qualified Code(s): K59.00 - Constipation, unspecified (4) Obstipation Current Visit: Yes Status: Resolved Assessment and plan: Patient passed flatus last evening (5) CHF (congestive heart failure) Current Visit: Yes Status: Chronic Assessment and plan: Stable, continue to monitor, particularly with IV fluids. Qualifiers: Heart failure type: unspecified Heart failure chronicity: chronic Qualified Code(s): I50.9 - Heart failure, unspecified - Time Spent With Patient Total time spent is greater than 50% in coordination of care (as documented) at patient's floor/unit and/or counseling patient: - Subjective Interval history: Patient states pain better under control with GREASE PRESS HELPER pump. NG tube in place. Planning for surgery today with Flora. Denies any questions at this time - Constitutional Vitals: Temp Pulse Resp BP Pulse Ox 97.4 F L 88 15 133/75 94 05/12/18 06:53 05/12/18 06:53 05/12/18 06:53 05/12/18 06:53 05/12/18 06:53 General appearance: Present: A&O X 3, obese, answers questions appropriately - Head Head exam: Present: atraumatic, normocephalic - Respiratory Respiratory exam: Present: CTAB. Absent: accessory muscle use, rales, rhonchi, wheezes - Cardiovascular Cardiovascular exam: Present: RRR, +S1, +S2. Absent: gallop, rubs - GI/Abdominal GI/Abdominal exam: Present: distended, firm, tenderness (diffuse abdominal tenderness to deep and superficial palpation, most tender around the umbilicus) . Absent: soft - Neurological Exam Neurological exam: Present: alert, oriented X3, no focal deficits Internal Medicine: Result - Labs CBC & Chem 7: 05/12/18 03:46 05/12/18 03:46 Labs: Short CBC 05/12/18 Range/Units 03:46 WBC 12.8 H (4.3-11.1) K/mcL Hgb 14.8 (12.9-16.9) g/dL Hct 42.1 (37.5-50.1) % Plt Count 171 (140-400) K/mcL BMP 05/12/18 03:46 Sodium 136 Potassium 3.8 Chloride 104 Carbon Dioxide 22 L BUN 18 Creatinine 1.06 Glucose 237 H Calcium 9.1 - ABG Interpretation ABG results: PT/INR, D-dimer PT 11.8 Seconds (9.4-12.1) 05/11/18 19:31 - Impressions Impressions KUB X-Ray 05/12/18 01:32 IMPRESSION: Slight proximal positioning of esophagogastric tube. Recommend advancing -2009 cm. D/ / Remy Ocampo / Remy Ocampo Interpreting Provider: Remy Ocampo Consult Discharge Plan - Plan Referrals: Chelly Rosa, [facility] [Primary Care Provider] - <Mariama Freedman - Last Filed: 05/12/18 13:40> Date of Encounter: 05/12/18 - Time Spent With Patient Total time spent is greater than 50% in coordination of care (as documented) at patient's floor/unit and/or counseling patient: - Constitutional Vitals: Temp Pulse Resp BP Pulse Ox 97.6 F 66 16 117/73 96 05/12/18 10:52 05/12/18 10:52 05/12/18 10:52 05/12/18 10:52 05/12/18 10:52 Internal Medicine: Result - Labs CBC & Chem 7: 05/12/18 03:46 05/12/18 03:46 Labs: Short CBC 05/12/18 Range/Units 03:46 WBC 12.8 H (4.3-11.1) K/mcL Hgb 14.8 (12.9-16.9) g/dL Hct 42.1 (37.5-50.1) % Plt Count 171 (140-400) K/mcL BMP 05/12/18 03:46 Sodium 136 Potassium 3.8 Chloride 104 Carbon Dioxide 22 L BUN 18 Creatinine 1.06 Glucose 237 H Calcium 9.1 - ABG Interpretation ABG results: PT/INR, D-dimer PT 11.8 Seconds (9.4-12.1) 05/11/18 19:31 - Impressions Impressions KUB X-Ray 05/12/18 01:32 IMPRESSION: Slight proximal positioning of esophagogastric tube. Recommend advancing 05-2010 cm. D/ / Remy Ocampo / Remy Ocampo Interpreting Provider: Remy Ocampo - Attending Attestation I examined this patient and my medical decision-making was reviewed with the Resident Physician Dr. Ventura. I agree with the documented findings, disposition and treatment plan as described except to the extent set forth below. Mr. Pyle is 68 y/o M with known PMH of HTN, HLD, Morbid obesity, diastolic CHF and recurrent SBO pt presented to ER with worsening abdominal pain. CT in the emergency room showed a mid small bowel obstruction along the ventral hernia graft medial to the right rectus muscle. Pt was admitted in the hospital , NG tube placed. Had very minimal secretions today. Pain is little better today. Gen: A, A, O x 3 Chest: Diminished BS b/l Abd: Soft, Mild discomfort, distended, no guarding, no rigidity a/p 1. Acute SBO 2. Intractable Abd pain Scheduled for Exploratory celiotomy later today by Dr. Flora quarles while continue current symptomatic and supportive care
[2018-05-12] MEDS ORDERED: ceFAZolin 2,000 MG in Water for inj. (sterile) 20 ML 20 ML IVP ONE (14:42)
[2018-05-12] MEDS ORDERED: *HR* Rocuronium Bromide 50 MG/5 ML VIAL ONE ×2 (15:44→15:46)
[2018-05-12] MEDS ORDERED: Lidocaine -MPF 2% 2 ML VIAL ONE (15:46)
[2018-05-12] MEDS ORDERED: *HR* Midazolam HCl 2 MG/2 ML VIAL ONE (15:46)
[2018-05-12] MEDS ORDERED: *HR* FentaNYL (PF) 100 MCG/2 ML VIAL ONE (15:46)
[2018-05-12] MEDS ORDERED: *HR* Propofol 200 MG/20 ML VIAL IVP ONE (15:46)
[2018-05-12] MEDS ORDERED: Ondansetron 4 MG/2 ML VIAL ONE (15:46)
[2018-05-12] MEDS ORDERED: Dexamethasone 4 MG/ML VIAL ONE (15:46)
[2018-05-12] MEDS ORDERED: Lidocaine -MPF 4% 5 ML AMPUL ONE (15:46)
[2018-05-12] MEDS ORDERED: *HR* Succinylcholine 200 MG/10 ML VIAL IVP ONE (15:46)
[2018-05-12] MEDS ORDERED: *HR* Labetalol 20 MG/4 ML SYRINGE IVP PRN (15:50)
[2018-05-12] MEDS ORDERED: *HR* OxyCODONE Immed Rel 5 MG TABLET PO PRN (15:50)
[2018-05-12] MEDS ORDERED: Ondansetron 4 MG/2 ML VIAL IVP ONE (15:50)
[2018-05-12] MEDS ORDERED: *HR* Meperidine 25 MG/ML SYRINGE IVP PRN (15:50)
[2018-05-12] MEDS ORDERED: *HR* HYDROmorphone (PF) 1 MG/ML SYRINGE IVP PRN (15:50)
[2018-05-12] MEDS ORDERED: *HR* Promethazine 25 MG/ML VIAL IVP PRN (15:50)
[2018-05-12] MEDS ORDERED: *HR* FentaNYL (PF) 100 MCG/2 ML VIAL IVP PRN (15:50)
[2018-05-12] MEDS ORDERED: Bupivacaine/EPI 1:200k 0.5%PF 30 ML VIAL ONE (16:09)
[2018-05-12] MEDS ORDERED: Neostigmine Methylsulfate 3 MG/3 ML SYRINGE ONE (16:16)
--- NOTE | 2018-05-12 17:11 | Operative Note ---
Date of procedure: 05/12/18 Pre-op diagnosis: Small bowel obstruction Post-op diagnosis: other (small bowel adhesions to mesh prosthesis causing small bowel obstruction) Procedure: Exploratory celiotomy, lysis of adhesions (60 minutes) with release of small bowel obstruction Implants: None Complications: None apparent Anesthesia: GETA Local Anesthetics: 0.25% Sensorcaine HCL with Epinephrine 1:200,000 SubQ (cc) ( 30 mL) Surgeon: Rey Hines Was there an social services assistant present: No Estimated blood loss (cc): 30 Specimen: 1500 Condition: stable Disposition: PACU Procedure in Detail: The patient was brought to the operating room where he was placed supine on the procedure table. The patient was appropriately identified as to person and procedure. This information was confirmed by the patient and procedure team. The patient was then intubated and anesthetized under the supervision of Dr. Dianna Ward. An NG and French catheter were in place at the time of arrival in the operating room. The abdomen was prepped and draped in usual sterile fashion. A midline incision was made with a #10 scalpel from the umbilicus and extended cephalad. The incision was extended to the fascia. Bleeding points were controlled with Bovie electrocautery. Several fascial defects were encountered, these contained mesh. These defects were enlarged and dissection proceeded to separate the mesh prosthesis from the surrounding tissue. I was able to enter the abdomen atraumatically. Several loops of small bowel were adherent to the mesh prosthesis. These adhesions were sharply dissected and eventually I was able to remove the mesh prosthesis completely. There were several loops of small bowel adherent to one another. These were mobilized with additional lysis of adhesions. The small bowel was examined with no obvious perforations, sharp angulations or obvious obstruction. A small fascial defect lateral to the umbilicus was encountered. The abdominal incision was extended through this fascial defect. The abdominal wall was then closed in layers. 6 #2 Monosoft retention sutures were placed. The fascia was approximated with interrupted [id number] 0 Vicryl. The subcutaneous tissue was approximated with 3-0 Vicryl. The skin edges approximated with hollie. The fascia and skin layers were infiltrated with several milliliters of 0.25% bupivacaine with 1-200,000 units epinephrine. A total of 30 mL was used. The retention sutures worse secured. A dry sterile dressing was placed. An abdominal binder was applied. The patient was taken to recovery in stable condition. Needle, sponge, and instrument counts were correct at the close of the case.
--- NOTE | 2018-05-12 17:55 | Anesthesia Evaluation Post Op ---
Date of Encounter: 05/12/18 Time of Encounter: 17:54 - Vital Signs Vital Signs: Vital Signs/O2 Sat, Most Current Temp Pulse Resp BP Pulse Ox 98 F 56 20 128/80 94 05/12/18 17:40 05/12/18 17:50 05/12/18 17:50 05/12/18 17:50 05/12/18 17:50 - Lungs Lungs: Clear Ascult./Percussion - Airway Airway: Non-obstructed - Cardiovascular Regular Rate - Mental Status Mental Status: Alert & Oriented, Answers Appropriately - Pain Pain Scale: 3 Pain Scale used: Numeric (1 - 10) - Nausea Vomiting Nausea Vomiting: Not Present - Hydration Hydration: NPO - Discharge PostOp Status: Transfer Patient to floor (awake, minimal pain VSS)
[2018-05-12] MEDS ORDERED: Naloxone 0.4 MG/ML INJ IVP PRN (18:02)
[2018-05-12] MEDS: Ringers Solution, Lactated 1,000 ML IVC SCH (19:41)
[2018-05-13 06:37] LABS: BUN/Creatinine Ratio 18 (6-26); Blood Urea Nitrogen 17 mg/dL (8-23); Calcium 8.1 mg/dL (8.6-10.3); Carbon Dioxide 26 mEq/L (23-29); Chloride 108 mEq/L (98-107); Glucose 151 mg/dL (70-105); Osmolality,Calculated 292 (280-300); Sodium 139 mEq/L (136-145); eGFR For African Americans > 60 (> 60); eGFR For Non-African Americans > 60 (> 60)
[2018-05-13 06:55] LABS: Basophils % 0.3 %; Eosinophils % 0.4 %; Hematocrit 37.9 % (37.5-50.1); Immature Granulocytes % 0.5 % (0-4); Lymphocytes # 1.6 K/mcL (0.6-4.6); Lymphocytes % 13.6 %; Mean Corpuscular HGB Conc 33.2 g/dL (31.6-35.5); Mean Corpuscular Volume 99.2 fL (83.0-100.0); Mean Platelet Volume 10.1 fL (9.4-12.4); Monocytes % 8.7 %; Neutrophils # 8.7 K/mcL (1.6-8.9); Platelet Count 176 K/mcL (140-400); Red Blood Count 3.82 M/mcL (4.19-5.50); Red Cell Distribution Width 14.6 % (11.5-14.5); Segmented Neutrophils % 76.5 %
[2018-05-13 07:02] LABS: Hemoglobin 12.6 g/dL (12.9-16.9)
[2018-05-13] MEDS: Pantoprazole 40 MG VIAL IVP SCH (10:31)
[2018-05-13] MEDS: Ringers Solution, Lactated 1,000 ML IVC SCH (10:31)
[2018-05-13] MEDS ORDERED: Ringers Solution, Lactated 1,000 ML IVC SCH (13:54)
--- NOTE | 2018-05-13 13:58 | Internal Med Progress Note ---
<JoniAlex adkins - Last Filed: 05/13/18 13:54> Date of Encounter: 05/13/18 Time of Encounter: 13:54 - Assessment and plan (1) Small bowel obstruction Current Visit: Yes Status: Acute Assessment and plan: Postop day 1 status post lysis of adhesions. Patient had obstruction secondary due to mesh from a previous hernia repair. Patient underwent lysis of adhesions yesterday, no bowel resection was necessary. Patient seems to be doing well at this time. 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 Once he is able to take oral medications will transition him to oral pain regimen. Advance diet per surgery recommendations. (2) Obstructive sleep apnea Current Visit: No Status: Chronic Assessment and plan: CPAP at night (3) HTN (hypertension) Current Visit: No Status: Chronic Assessment and plan: Restart Lasix as above. Qualifiers: Hypertension type: essential hypertension Qualified Code(s): I10 - Essential (primary) hypertension (4) Congestive heart failure Current Visit: Yes Status: Acute Assessment and plan: Chronic. No evidence exacerbation. Patient is currently on IV fluids as he is nothing by mouth postoperatively. Discussed with surgery, we will decrease IV fluids and restart home Lasix at a lower dose tomorrow. We will titrate up Lasix as the patient is able to increase his oral intake. Qualifiers: Heart failure type: diastolic Heart failure chronicity: chronic Qualified Code(s): I50.32 - Chronic diastolic (congestive) heart failure - Time Spent With Patient Total time spent is greater than 50% in coordination of care (as documented) at patient's floor/unit and/or counseling patient: - Subjective Interval history: Patient seen and examined at bedside. He reports that he feels okay today. He reports some mild pain at his abdominal incision site. He reports he is passing gas. He denies having a bowel movement since surgery. He denies chest pain, shortness of breath, lower extremity swelling. - Constitutional Vitals: Temp Pulse Resp BP Pulse Ox 98.1 F 68 15 106/65 93 05/13/18 10:11 05/13/18 10:11 05/13/18 10:11 05/13/18 10:11 05/13/18 10:11 General appearance: Present: A&O X 3, obese, answers questions appropriately - Respiratory Respiratory exam: Present: decreased breath sounds. Absent: rales, respiratory distress, wheezes - Cardiovascular Cardiovascular exam: Present: RRR. Absent: gallop, rubs, systolic murmur - GI/Abdominal GI/Abdominal exam: Present: distended, hypoactive bowel sounds, soft, tenderness (mild) Additional comments: Abdominal binder present - Extremities Exam Extremities exam: Present: pedal edema (trace), warm. Absent: tenderness - Neurological Exam Neurological exam: Present: alert, CN II-XII intact, oriented X3, no focal deficits Internal Medicine: Result - Labs CBC & Chem 7: 05/13/18 06:24 05/13/18 06:05 Labs: Short CBC 05/13/18 Range/Units 06:24 WBC 11.4 H (4.3-11.1) K/mcL Hgb 12.6 L D (12.9-16.9) g/dL Hct 37.9 (37.5-50.1) % Plt Count 176 (140-400) K/mcL Neutrophils # 8.7 (1.6-8.9) K/mcL BMP 05/13/18 06:05 Sodium 139 Potassium 4.0 Chloride 108 H Carbon Dioxide 26 BUN 17 Creatinine 0.94 Glucose 151 H Calcium 8.1 L - ABG Interpretation ABG results: PT/INR, D-dimer PT 11.8 Seconds (9.4-12.1) 05/11/18 19:31 - VTE Documentation of Mechanical Device: Intermittent pneumatic compression device Consult Discharge Plan - Plan Referrals: Rey Hines MD [Non-Partnered Physician] - <Mariama Freedman - Last Filed: 05/13/18 14:12> Date of Encounter: 05/13/18 - Assessment and plan (1) Obstructive sleep apnea Current Visit: No Status: Chronic (2) HTN (hypertension) Current Visit: No Status: Chronic Qualifiers: Hypertension type: essential hypertension Qualified Code(s): I10 - Essential (primary) hypertension (3) Small bowel obstruction Current Visit: Yes Status: Acute (4) Congestive heart failure Current Visit: Yes Status: Acute Qualifiers: Heart failure type: diastolic Heart failure chronicity: chronic Qualified Code(s): I50.32 - Chronic diastolic (congestive) heart failure - Time Spent With Patient Total time spent is greater than 50% in coordination of care (as documented) at patient's floor/unit and/or counseling patient: - Constitutional Vitals: Temp Pulse Resp BP Pulse Ox 98.1 F 68 15 106/65 93 05/13/18 10:11 05/13/18 10:11 05/13/18 10:11 05/13/18 10:11 05/13/18 10:11 Internal Medicine: Result - Labs CBC & Chem 7: 05/13/18 06:24 05/13/18 06:05 Labs: Short CBC 05/13/18 Range/Units 06:24 WBC 11.4 H (4.3-11.1) K/mcL Hgb 12.6 L D (12.9-16.9) g/dL Hct 37.9 (37.5-50.1) % Plt Count 176 (140-400) K/mcL Neutrophils # 8.7 (1.6-8.9) K/mcL BMP 05/13/18 06:05 Sodium 139 Potassium 4.0 Chloride 108 H Carbon Dioxide 26 BUN 17 Creatinine 0.94 Glucose 151 H Calcium 8.1 L - ABG Interpretation ABG results: PT/INR, D-dimer PT 11.8 Seconds (9.4-12.1) 05/11/18 19:31 - Attending Attestation I examined this patient and my medical decision-making was reviewed with the Resident Physician Dr. Freire. I agree with the documented findings, disposition and treatment plan as described except to the extent set forth below. Mr. Pyle is 68 y/o M with known PMH of HTN, HLD, Morbid obesity, diastolic CHF and recurrent SBO pt presented to ER with worsening abdominal pain. CT in the emergency room showed a mid small bowel obstruction along the ventral hernia graft medial to the right rectus muscle. Pt was admitted in the hospital , NG tube placed. he did go for surgery y/d. Had Exploratory celiotomy, lysis of adhesions, with release of small bowel obstruction. Now he feels little better. No N/V. Off the NG tube. Flatus + No BM Gen: A, A, O x 3 Chest: Diminished BS b/l Abd: Soft, distended, no guarding, no rigidity a/p 1. Acute SBO 2. Intractable Abd pain s/p Exploratory celiotomy, lysis of adhesions with release of small bowel obstruction cont supportive care resume diet as per surgery recommendations IV hydration until he tolerate PO intake
[2018-05-13] MEDS ORDERED: *HR* HYDROmorphone 20 MG/20 ML PCA IVC PRN (16:11)
--- NOTE | 2018-05-13 16:19 | General Surgery Progress Note ---
Date of Encounter: 05/13/18 Time of Encounter: 16:13 Subjective Narrative: General Surgery - POD #1 Patient feeling well; complaining of incisional pain as expected; no nausea or vomiting. Patient describes a single episode of flatus as well as audible borborygmi Afebrile, pulse currently 73 range 59-73; respirations 16, blood pressure currently 142/69 Lungs: Clear to auscultation, no abdominal pain on deep inspiration Abdomen: Protuberant, soft with active bowel sounds. Midline incision clean and dry; dressing removed by physician Urine output approximately 425 mL for encountered a 05/12/18; 475 mL so far today. French catheter removed; patient able to void post removal catheter Laboratories: White count 11.4; hemoglobin 12.6 with hematocrit 37.9. Electrolytes, BUN, creatinine within an acceptable range. Impression: POD #1 - s/p exploratory celiotomy, lysis of adhesions with removal of mesh prosthesis used to repair a prior ventral incisional hernia. Small bowel was densely adherent to this mesh prosthesis likely causing the patient's abdominal pain with radiologic findings of small bowel obstruction. 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 Allow clear liquids Objective Vital Signs - Last 8 Hours Temp Pulse Resp BP Pulse Ox 05/13/18 14:48 98.0 F 73 16 142/69 92 05/13/18 10:11 98.1 F 68 15 106/65 93 Intake and Output 05/13/18 05/13/18 05/13/18 07:59 15:59 23:59 Intake Total 120 / 120 1000 / 1000 Output Total 650 / 650 125 / 125 Balance -530 / -530 875 / 875 Intake: IV Fluids 1000 / 1000 Lactated Ringers 1,000 ML @ 80 1000 / 1000 mls/hr IVC .[id number] [facility] Rx#: [id number] Oral 120 / 120 0 / 0 Output: Urine 350 / 350 125 / 125 Catheter 300 / 300 Other: Meal Lunch Percent of Meal Consumed 0% Weight 140.1 kg Blood Glucose* 155 129 Patient Weight 05/13/18 23:59 Weight 140.1 kg - Labs 05/13/18 06:24 05/13/18 06:05 Diabetes panel 05/13/18 Range/Units 06:05 Sodium 139 (136-145) mEq/L Potassium 4.0 (3.5-5.1) mEq/L Chloride 108 H (98-107) mEq/L Carbon Dioxide 26 (23-29) mEq/L BUN 17 (8-23) mg/dL Creatinine 0.94 (0.70-1.30) mg/dL Glucose 151 H (70-105) mg/dL Calcium 8.1 L (8.6-10.3) mg/dL Calcium panel 05/13/18 Range/Units 06:05 Calcium 8.1 L (8.6-10.3) mg/dL Pituitary panel 05/13/18 Range/Units 06:05 Sodium 139 (136-145) mEq/L Potassium 4.0 (3.5-5.1) mEq/L Chloride 108 H (98-107) mEq/L Carbon Dioxide 26 (23-29) mEq/L BUN 17 (8-23) mg/dL Creatinine 0.94 (0.70-1.30) mg/dL Glucose 151 H (70-105) mg/dL Calcium 8.1 L (8.6-10.3) mg/dL Adrenal panel 05/13/18 Range/Units 06:05 Sodium 139 (136-145) mEq/L Potassium 4.0 (3.5-5.1) mEq/L Chloride 108 H (98-107) mEq/L Carbon Dioxide 26 (23-29) mEq/L BUN 17 (8-23) mg/dL Creatinine 0.94 (0.70-1.30) mg/dL Glucose 151 H (70-105) mg/dL Calcium 8.1 L (8.6-10.3) mg/dL - VTE Documentation of Mechanical Device: Intermittent pneumatic compression device Consult Discharge Plan - Plan Referrals: Rey Hines MD [Non-Partnered Physician] -
[2018-05-14] MEDS: Pantoprazole 40 MG VIAL IVP SCH (08:40)
[2018-05-14] MEDS: Furosemide 40 MG TABLET PO SCH ×2 (08:42→21:50)
--- NOTE | 2018-05-14 08:51 | Internal Med Progress Note ---
<Esperanza Ventura - Last Filed: 05/14/18 08:48> Date of Encounter: 05/14/18 Time of Encounter: 08:48 - Assessment and plan (1) Small bowel obstruction Current Visit: Yes Status: Acute Assessment and plan: Postop day 2 status post lysis of adhesions. Patient had obstruction secondary due to mesh from a previous hernia repair. Patient underwent lysis of adhesions , no bowel resection was necessary. Currently on a RESEARCH AGRICULTURAL ENGINEER pump. Advance diet per surgery recommendations. (2) CHF (congestive heart failure) Current Visit: Yes Status: Chronic Assessment and plan: Chronic. No evidence exacerbation. Patient's IV fluids stopped. restart home Lasix at a lower dose. We will titrate up Lasix as the patient is able to increase his oral intake. Qualifiers: Heart failure type: unspecified Heart failure chronicity: chronic Qualified Code(s): I50.9 - Heart failure, unspecified (3) Obstructive sleep apnea Current Visit: Yes Status: Chronic Assessment and plan: CPAP at night (4) HTN (hypertension) Current Visit: Yes Status: Chronic Assessment and plan: Restart Lasix as above. Qualifiers: Hypertension type: essential hypertension Qualified Code(s): I10 - Essential (primary) hypertension - Time Spent With Patient Total time spent is greater than 50% in coordination of care (as documented) at patient's floor/unit and/or counseling patient: - Subjective Interval history: Patient states he had multiple episodes of nausea overnight and this morning. Has had difficulty urinating due to his terazosin being held. Patient states he is having some incisional pain and pressure. Has been able to eat small amounts of clear liquids with no emesis. Passing flatus but no bowel movement. - Constitutional Vitals: Temp Pulse Resp BP Pulse Ox 98.5 F 85 17 126/77 96 05/14/18 07:18 05/14/18 07:18 05/14/18 07:18 05/14/18 07:18 05/14/18 07:18 General appearance: Present: A&O X 3, obese, answers questions appropriately - Head Head exam: Present: atraumatic, normocephalic - Respiratory Respiratory exam: Present: CTAB. Absent: accessory muscle use, rales, rhonchi, wheezes - Cardiovascular Cardiovascular exam: Present: RRR, +S1, +S2. Absent: gallop, rubs - GI/Abdominal GI/Abdominal exam: Present: tenderness. Absent: guarding, rebound, rigid Additional comments: Protuberant, soft with active bowel sounds. Midline incision clean and dry - Neurological Exam Neurological exam: Present: alert, oriented X3, no focal deficits Internal Medicine: Result - Labs CBC & Chem 7: 05/13/18 06:24 05/13/18 06:05 - ABG Interpretation ABG results: PT/INR, D-dimer PT 11.8 Seconds (9.4-12.1) 05/11/18 19:31 - VTE Documentation of Mechanical Device: Intermittent pneumatic compression device Consult Discharge Plan - Plan Referrals: Rey Hines MD [Non-Partnered Physician] - <Mariama Freedman - Last Filed: 05/14/18 13:15> Date of Encounter: 05/14/18 - Assessment and plan (1) Obstructive sleep apnea Current Visit: Yes Status: Chronic (2) HTN (hypertension) Current Visit: Yes Status: Chronic Qualifiers: Hypertension type: essential hypertension Qualified Code(s): I10 - Essential (primary) hypertension (3) Small bowel obstruction Current Visit: Yes Status: Acute (4) Congestive heart failure Current Visit: Yes Status: Acute Qualifiers: Heart failure type: diastolic Heart failure chronicity: chronic Qualified Code(s): I50.32 - Chronic diastolic (congestive) heart failure - Time Spent With Patient Total time spent is greater than 50% in coordination of care (as documented) at patient's floor/unit and/or counseling patient: - Constitutional Vitals: Temp Pulse Resp BP Pulse Ox 98.6 F 52 20 125/75 99 05/14/18 10:13 05/14/18 10:13 05/14/18 10:13 05/14/18 10:13 05/14/18 10:13 Internal Medicine: Result - Labs CBC & Chem 7: 05/13/18 06:24 05/13/18 06:05 - ABG Interpretation ABG results: PT/INR, D-dimer PT 11.8 Seconds (9.4-12.1) 05/11/18 19:31 - Attending Attestation I examined this patient and my medical decision-making was reviewed with the Resident Physician Dr. Ventura. I agree with the documented findings, disposition and treatment plan as described except to the extent set forth below. Mr. Pyle is 68 y/o M with known PMH of HTN, HLD, Morbid obesity, diastolic CHF and recurrent SBO pt presented to ER with worsening abdominal pain. CT in the emergency room showed a mid small bowel obstruction along the ventral hernia graft medial to the right rectus muscle. Pt was admitted in the hospital , NG tube placed. Had Exploratory celiotomy, lysis of adhesions, with release of small bowel obstruction on 05/12/18. Now he feels little better. No N/V. Off the NG tube. Flatus +, No BM yet. Gen: A, A, O x 3 Chest: Diminished BS b/l Abd: Soft, distended, no guarding, no rigidity a/p 1. Acute SBO 2. Intractable Abd pain s/p Exploratory celiotomy, lysis of adhesions with release of small bowel obstruction- POD # 2 cont supportive care resume diet as per surgery recommendations IV hydration until he tolerate PO intake Counseled the pt for more physical activity and go off the Dilaudid RESEARCH AGRICULTURAL ENGINEER 3. Chronic diastolic CHF not in exacerbation gentle hydration only close monitoring of I & O's
--- NOTE | 2018-05-14 12:25 | General Surgery Progress Note ---
Date of Encounter: 05/14/18 Time of Encounter: 12:20 Subjective Narrative: General Surgery - POD#2 Patient complaining of abdominal/incisional pain; he also experienced some nausea through the night but no emesis. The patient remains afebrile, maximum temperature 99.2, pulse 52, ranging 52- 85; respiratory rate 15-20, blood pressure stable at 125/75. Lungs: Scattered bibasilar rales; SPO2 2.5 L/m nasal cannula 99%; no obvious abdominal pain on deep inspiration Abdomen: Protuberant but soft to palpation active bowel sounds; patient describes a small amount of flatus. Midline incision clean and dry Output: 300 mL so far today; he is on twice a day Lasix Impression: POD#2 - status post exploratory celiotomy, lysis of adhesions with removal of mesh prosthesis. Patient continues to complain of incisional pain as expected. Active bowel sounds and flatus but no BM. Continue MERCANTILE AGENT Dilaudid for control of the patient's pain. Insufficient activity out of bed. Patient encouraged to be out of bed and active to improve bowel activity and function. MERCANTILE AGENT Dilaudid to facilitate this activity Little oral intake secondary to postoperative nausea; no emesis. IV fluids have been discontinued. We will need to watch I's and O's. Objective Vital Signs - Last 8 Hours Temp Pulse Resp BP Pulse Ox 05/14/18 10:13 98.6 F 52 20 125/75 99 05/14/18 07:18 98.5 F 85 17 126/77 96 Intake and Output 05/13/18 05/14/18 05/14/18 23:59 07:59 15:59 Intake Total 360 / 360 0 / 0 240 / 240 Output Total 0 / 0 100 / 100 200 / 200 Balance 360 / 360 -100 / -100 40 / 40 Intake: Oral 360 / 360 0 / 0 240 / 240 Output: Urine 0 / 0 100 / 100 200 / 200 Other: Meal Clears # Voids 1 Weight 139.8 kg - Labs 05/13/18 06:24 05/13/18 06:05 - VTE Documentation of Mechanical Device: Intermittent pneumatic compression device Consult Discharge Plan - Plan Referrals: Rye Hines MD [Non-Partnered Physician] -
--- NOTE | 2018-05-14 20:55 | General Surgery Progress Note ---
Date of Encounter: 05/14/18 Time of Encounter: 20:53 Subjective Patient reports: feels better, flatus Narrative: General Surgery - POD #2 Patient appears to be much more comfortable; abdominal distention diminished in the abdomen is softer. Bowel sounds are active. She admits to passing copious flatus. He has obviously "decompressed" his abdomen. He is much more comfortable than this morning. The patient remains afebrile, currently 98.4, pulse 71, respirations 15, blood pressure 119/71. Abdomen: Soft, less distended, active bowel sounds. Midline incision clean and dry. Impression: Continues to improve postop Plan: Full liquid diet this evening Objective Vital Signs - Last 8 Hours Temp Pulse Resp BP Pulse Ox 05/14/18 20:45 98.4 F 71 15 119/71 98 05/14/18 14:14 98.9 F 80 18 158/77 93 Intake and Output 05/14/18 05/14/18 05/14/18 07:59 15:59 23:59 Intake Total 0 / 0 440 / 440 240 / 240 Output Total 100 / 100 475 / 475 0 / 0 Balance -100 / -100 -35 / -35 240 / 240 Intake: Oral 0 / 0 440 / 440 240 / 240 Output: Urine 100 / 100 475 / 475 0 / 0 Other: Meal Clears # Voids 1 - Labs 05/13/18 06:24 05/13/18 06:05 - VTE Documentation of Mechanical Device: Intermittent pneumatic compression device Consult Discharge Plan - Plan Referrals: Rey Hines MD [Non-Partnered Physician] -
[2018-05-14] MEDS ORDERED: Ringers Solution, Lactated 1,000 ML IVC SCH (21:45)
[2018-05-15 06:00] LABS: Basophils % 0.4 %; Eosinophils # 0.2 K/mcL (0.0-0.6); Eosinophils % 2.4 %; Hematocrit 36.1 % (37.5-50.1); Hemoglobin 11.9 g/dL (12.9-16.9); Immature Granulocytes % 0.7 % (0-4); Lymphocytes # 1.5 K/mcL (0.6-4.6); Lymphocytes % 20.8 %; Mean Corpuscular Hemoglobin 32.4 pg (28.0-33.3); Mean Corpuscular Volume 98.4 fL (83.0-100.0); Mean Platelet Volume 10.1 fL (9.4-12.4); Monocytes # 0.6 K/mcL (0.0-1.3); Monocytes % 8.1 %; Platelet Count 137 K/mcL (140-400); Red Blood Count 3.67 M/mcL (4.19-5.50); Red Cell Distribution Width 14.2 % (11.5-14.5); Segmented Neutrophils % 67.6 %
[2018-05-15 06:18] LABS: Alanine Aminotransferase 11 Units/L (7-52); Albumin 3.2 g/dL (3.5-5.7); Albumin/Globulin Ratio 1.3 (1.1-2.2); Alkaline Phosphatase 39 Units/L (34-104); Aspartate Amino Transferase 20 Units/L (13-39); BUN/Creatinine Ratio 13 (6-26); Bilirubin,Total 0.8 mg/dL (0.3-1.0); Blood Urea Nitrogen 11 mg/dL (8-23); Calcium 8.1 mg/dL (8.6-10.3); Carbon Dioxide 28 mEq/L (23-29); Chloride 104 mEq/L (98-107); Globulin 2.5 g/dL (2.4-3.5); Glucose 117 mg/dL (70-105); Osmolality,Calculated 288 (280-300); Potassium 3.5 mEq/L (3.5-5.1); Sodium 139 mEq/L (136-145); Total Protein 5.7 g/dL (6.4-8.9); eGFR For African Americans > 60 (> 60); eGFR For Non-African Americans > 60 (> 60)
[2018-05-15] MEDS: Furosemide 40 MG TABLET PO SCH ×2 (08:56→17:22)
[2018-05-15] MEDS: Pantoprazole 40 MG VIAL IVP SCH (08:57)
[2018-05-15] MEDS ORDERED: *HR* OxyCODONE/APAP 10/325 TABLET PO PRN (09:01)
[2018-05-15] MEDS ORDERED: Acetaminophen 325 MG TABLET PO PRN (09:03)
--- NOTE | 2018-05-15 09:18 | General Surgery Progress Note ---
Date of Encounter: 05/15/18 Time of Encounter: 09:10 Subjective Patient reports: no new complaints, flatus Narrative: General Surgery - POD #3 No new complaints. Afebrile, pulse 69, respirations 16, blood pressure 119/ 73. Pain diminished/controlled Lungs: Clear though bibasilar breath sounds remained diminished; he remains on oxygen 2-3 L/m nasal cannula to maintain a saturation [place] 9798% Discussed with nursing, they will wean the oxygen support if possible Patient encouraged to be active out of bed and ambulatory; he needs to be more aggressive with incentive spirometry Abdomen: Soft, protuberant but likely at baseline; no rebound or peritoneal signs. Active bowel sounds Midline incision clean and dry Laboratories: Leukocytosis has resolved, 7.4; hemoglobin 11.9, hematocrit 36.1. Platelet count 137,000. Electrolytes, BUN, creatinine stable however potassium has fallen the borderline low levels, 3.5. Impression/Plan POD #3 - s/p exploratory celiotomy, lysis of adhesions and removal of previous mesh prosthesis Bowel function slowly returning; tolerating liquid diet. Will advance as tolerated. Incisional pain diminished; will DC NETWORK COMMUNICATIONS ENGINEER Dilaudid - substitute oral narcotics Supplemental oral potassium Objective Vital Signs - Last 8 Hours Temp Pulse Resp BP Pulse Ox 05/15/18 07:01 98.0 F 69 16 119/73 98 05/15/18 04:06 98.1 F 69 15 106/65 97 Intake and Output 05/14/18 05/15/18 05/15/18 23:59 07:59 15:59 Intake Total 240 / 240 Output Total 0 / 0 1100 / 1100 Balance 240 / 240 -1100 / -1100 Intake: Oral 240 / 240 Output: Urine 0 / 0 1100 / 1100 Other: Meal Clears # Voids 1 - Labs 05/15/18 03:16 05/15/18 03:16 Diabetes panel 05/15/18 Range/Units 03:16 Sodium 139 (136-145) mEq/L Potassium 3.5 (3.5-5.1) mEq/L Chloride 104 (98-107) mEq/L Carbon Dioxide 28 (23-29) mEq/L BUN 11 (8-23) mg/dL Creatinine 0.87 (0.70-1.30) mg/dL Glucose 117 H (70-105) mg/dL Calcium 8.1 L (8.6-10.3) mg/dL AST 20 (13-39) Units/L ALT 11 (7-52) Units/L Alkaline Phosphatase 39 (34-104) Units/L Albumin 3.2 L (3.5-5.7) g/dL Calcium panel 05/15/18 Range/Units 03:16 Calcium 8.1 L (8.6-10.3) mg/dL Albumin 3.2 L (3.5-5.7) g/dL Pituitary panel 05/15/18 Range/Units 03:16 Sodium 139 (136-145) mEq/L Potassium 3.5 (3.5-5.1) mEq/L Chloride 104 (98-107) mEq/L Carbon Dioxide 28 (23-29) mEq/L BUN 11 (8-23) mg/dL Creatinine 0.87 (0.70-1.30) mg/dL Glucose 117 H (70-105) mg/dL Calcium 8.1 L (8.6-10.3) mg/dL Adrenal panel 05/15/18 Range/Units 03:16 Sodium 139 (136-145) mEq/L Potassium 3.5 (3.5-5.1) mEq/L Chloride 104 (98-107) mEq/L Carbon Dioxide 28 (23-29) mEq/L BUN 11 (8-23) mg/dL Creatinine 0.87 (0.70-1.30) mg/dL Glucose 117 H (70-105) mg/dL Calcium 8.1 L (8.6-10.3) mg/dL Total Bilirubin 0.8 (0.3-1.0) mg/dL AST 20 (13-39) Units/L ALT 11 (7-52) Units/L Alkaline Phosphatase 39 (34-104) Units/L Albumin 3.2 L (3.5-5.7) g/dL - VTE Documentation of Mechanical Device: Intermittent pneumatic compression device Consult Discharge Plan - Plan Referrals: Rey Hines MD [Non-Partnered Physician] -
--- NOTE | 2018-05-15 09:29 | Internal Med Progress Note ---
Date of Encounter: 05/15/18 Time of Encounter: 09:26 - Assessment and plan (1) Small bowel obstruction Current Visit: Yes Status: Acute Assessment and plan: POD #3 - s/p exploratory celiotomy, lysis of adhesions and removal of previous mesh prosthesis, tolerated full liquid, surgery advanced to regular diet (2) Obstructive sleep apnea Current Visit: Yes Status: Chronic Assessment and plan: CPAP at night (3) Morbid obesity with BMI of 40.0-44.9, adult Current Visit: No Status: Chronic (4) HLD (hyperlipidemia) Current Visit: No Status: Acute Qualifiers: Hyperlipidemia type: unspecified Qualified Code(s): E78.5 - Hyperlipidemia , unspecified (5) HTN (hypertension) Current Visit: Yes Status: Chronic Qualifiers: Hypertension type: essential hypertension Qualified Code(s): I10 - Essential (primary) hypertension (6) Diastolic CHF Current Visit: Yes Status: Acute Qualifiers: Heart failure chronicity: chronic Qualified Code(s): I50.32 - Chronic diastolic (congestive) heart failure (7) Diastolic CHF, chronic Current Visit: Yes Status: Acute Assessment and plan: continue home lasix - Time Spent With Patient Total time spent is greater than 50% in coordination of care (as documented) at patient's floor/unit and/or counseling patient: 25 - 35 minutes - Subjective Interval history: Mr. Pyle is a 68 year old male He follows up with Dr. Hines, and has had multiple small bowel obstructions in the past. He states that he is to have surgery at some point in the future but is unsure exactly when. CT in the emergency room showed a mid small bowel obstruction along the ventral hernia graft medial to the right rectus muscle. He incidentally was found to have a nonobstructing left renal calculus as well. He was admitte don 05/12 for osurgery , had s/p exploratory celiotomy, lysis of adhesions and removal of previous mesh prosthesis on 05/12, He is POD 3, doing well, passing rodney, but no BM yet Suregry advanced to regular ldiet, d/c BUS CLEANER pump - Constitutional Vitals: Temp Pulse Resp BP Pulse Ox 98.0 F 69 16 119/73 98 05/15/18 07:01 05/15/18 07:01 05/15/18 07:01 05/15/18 07:01 05/15/18 07:01 General appearance: Present: A&O X 3, obese, answers questions appropriately Exam: CONSTITUTIONAL: patient appears as an age appropriate male in no acute distress. EYES Clear sclerae, bilateral pupils are equal, reactive to light. EMOI. RESPIRATORY: No accessory muscle use, bilateral clear to auscultation, no wheezing, no crackles/rales. CARDIOVASCULAR: Regular heart rate, normal S1 and S2, no murmurs GASTROINTESTINAL: bowel sounds present, soft, no tenderness. MUSCULOSKELETAL: Joints in normal range of motion, no clubbing, ++edema, no cyanosis. Bilateral peripheral pulses 2+. NEUROLOGIC: CN II to XII are grossly intact, no focal neurological deficit. Internal Medicine: Result - Labs CBC & Chem 7: 05/15/18 03:16 05/15/18 03:16 Labs: Short CBC 05/15/18 Range/Units 03:16 WBC 7.4 (4.3-11.1) K/mcL Hgb 11.9 L (12.9-16.9) g/dL Hct 36.1 L (37.5-50.1) % Plt Count 137 L (140-400) K/mcL Neutrophils # 5.0 (1.6-8.9) K/mcL BMP 05/15/18 03:16 Sodium 139 Potassium 3.5 Chloride 104 Carbon Dioxide 28 BUN 11 Creatinine 0.87 Glucose 117 H Calcium 8.1 L Liver Function 05/15/18 Range/Units 03:16 Total Bilirubin 0.8 (0.3-1.0) mg/dL AST 20 (13-39) Units/L ALT 11 (7-52) Units/L Alkaline Phosphatase 39 (34-104) Units/L Albumin 3.2 L (3.5-5.7) g/dL - ABG Interpretation ABG results: PT/INR, D-dimer PT 11.8 Seconds (9.4-12.1) 05/11/18 19:31 - VTE Documentation of Mechanical Device: Intermittent pneumatic compression device Consult Discharge Plan - Plan Referrals: Rey Hines MD [Non-Partnered Physician] -
[2018-05-15] MEDS ORDERED: Psyllium 1 PACKET POWD.PACK PO PRN (16:49)
[2018-05-15] MEDS ORDERED: Furosemide 40 MG TABLET PO SCH (17:00)
[2018-05-16 04:22] LABS: Basophils % 0.3 %; Eosinophils # 0.3 K/mcL (0.0-0.6); Eosinophils % 3.1 %; Hematocrit 36.3 % (37.5-50.1); Hemoglobin 12.4 g/dL (12.9-16.9); Immature Granulocytes % 0.9 % (0-4); Lymphocytes # 1.4 K/mcL (0.6-4.6); Lymphocytes % 17.9 %; Mean Corpuscular HGB Conc 34.2 g/dL (31.6-35.5); Mean Corpuscular Hemoglobin 32.7 pg (28.0-33.3); Mean Corpuscular Volume 95.8 fL (83.0-100.0); Mean Platelet Volume 9.8 fL (9.4-12.4); Monocytes # 0.6 K/mcL (0.0-1.3); Monocytes % 7.5 %; Neutrophils # 5.6 K/mcL (1.6-8.9); Platelet Count 149 K/mcL (140-400); Red Blood Count 3.79 M/mcL (4.19-5.50); Segmented Neutrophils % 70.3 %
[2018-05-16 08:06] VITALS: BP 126/76
[2018-05-16] MEDS: Furosemide 40 MG TABLET PO SCH (08:19)
--- NOTE | 2018-05-16 10:11 | General Surgery Progress Note ---
Date of Encounter: 05/16/18 Time of Encounter: 10:05 Subjective Patient reports: no new complaints, feels better, tolerating a regular diet Narrative: General Surgery - POD #4 Patient feeling better; anxious to be discharged home. No fever, chills, nausea or vomiting. Patient is tolerating a regular diet Patient is experiencing minimal incisional pain; he indicates he has not used any narcotic pain meds since the FEED ADVISER has been stopped The patient is afebrile, 97.8, pulse 63, respirations 18, blood pressure 126/ 76. Lungs: Diminished breath sounds both bases; SPO2 95% on room air Abdomen: Protuberant, likely baseline; soft, nontender. No peritoneal signs. Active bowel sounds Midline incision clean and dry. Laboratories: White count 8.0, hemoglobin 12.4 with hematocrit 36.3. Differential within normal limits, potassium 3.5 Impression/Plan: POD #4 - status post expiratory celiotomy lysis of adhesions and removal of previous mesh prosthesis. Acceptable postoperative status; patient is sufficiently recovered and stable to be discharged home Recommendations: Regular diet Activity as tolerated with lifting limited to less than 20 pounds Patient may shower, wash incisions incision with soap and water Tylenol, ibuprofen, Motrin, Advil, Aleve, etc. as needed for pain Prescription for Percocet 5/325, #16, one every 6 hours as needed for pain not relieved by [id number] medications Outpatient follow-up my office, 05/21/18 or 05/22/18; patient to call office Friday a.m. to make this appointment. Objective Vital Signs - Last 8 Hours Temp Pulse Resp BP Pulse Ox 05/16/18 08:05 97.8 F 63 18 126/76 95 05/16/18 04:47 98.2 F 66 16 144/87 93 Intake and Output 05/15/18 05/16/18 05/16/18 23:59 07:59 15:59 Intake Total 240 / 240 700 / 700 240 / 240 Output Total 200 / 200 0 / 0 Balance 40 / 40 700 / 700 240 / 240 Intake: Oral 240 / 240 700 / 700 240 / 240 Output: Urine 200 / 200 0 / 0 Other: Meal Dinner Breakfast Percent of Meal Consumed 90% 100% # Voids 1 Weight 136 kg Patient Weight 05/16/18 23:59 Weight 136 kg - Labs 05/16/18 03:51 05/16/18 03:51 Diabetes panel 05/16/18 Range/Units 03:51 Potassium 3.5 (3.5-5.1) mEq/L Pituitary panel 05/16/18 Range/Units 03:51 Potassium 3.5 (3.5-5.1) mEq/L Adrenal panel 05/16/18 Range/Units 03:51 Potassium 3.5 (3.5-5.1) mEq/L - VTE Documentation of Mechanical Device: Intermittent pneumatic compression device Consult Discharge Plan - Plan Referrals: Rey Hines MD [Non-Partnered Physician] -
--- NOTE | 2018-05-16 10:15 | Discharge Summary ---
Outpatient Proc Discharge Plan - Plan Prescriptions: Oxycodone HCl/Acetaminophen [Percocet 5-325 mg Tablet] 1 each PO Q6H PRN 4 Days #16 tablet PRN Reason: Pain Home Medications: Terazosin HCl 10 mg PO HS 01/03/16 [History] Aspirin [Lo-Dose Aspirin EC] 81 mg PO DAILY 04/07/18 [History] Furosemide [Lasix] 80 mg PO BID 04/07/18 [History] Potassium Chloride [Klor-Con Sprinkle] 10 meq PO BID 04/07/18 [History] metOLazone [Zaroxolyn] 2.5 mg PO DAILY 04/07/18 [History] Sennosides/Docusate Sodium [Senna Plus] 1 each PO DAILY PRN #20 tablet 04/09/18 [Rx] Dicyclomine [Bentyl] 20 mg PO QID 05/11/18 [History] Acetaminophen [Tylenol] 650 mg PO Q6HR PRN tablet 05/16/18 [Rx] Oxycodone HCl/Acetaminophen [Percocet 5-325 mg Tablet] 1 each PO Q6H PRN 4 Days #16 tablet 05/16/18 [Rx]
--- NOTE | 2018-05-16 10:28 | Discharge Summary ---
Date of Encounter: 05/16/18 Time of Encounter: 10:26 - Discharge Diagnosis (1) Small bowel obstruction Priority: Primary Status: Resolved (2) Obstructive sleep apnea Priority: Secondary Status: Chronic (3) Morbid obesity with BMI of 40.0-44.9, adult Priority: Secondary Status: Chronic (4) HLD (hyperlipidemia) Priority: Secondary Status: Chronic Qualifiers: Hyperlipidemia type: unspecified Qualified Code(s): E78.5 - Hyperlipidemia , unspecified (5) HTN (hypertension) Priority: Secondary Status: Chronic Qualifiers: Hypertension type: essential hypertension Qualified Code(s): I10 - Essential (primary) hypertension (6) Diastolic CHF, chronic Priority: Secondary Status: Chronic Hospital course: Mr. Pyle is a 68 year old male who has hx of obesity, chronic distolic CHF, recurrent SBO, He follows up with Dr. Hines, and has had multiple small bowel obstructions in the past. He states that he is to have surgery at some point in the future but is unsure exactly when. CT in the emergency room showed a mid small bowel obstruction along the ventral hernia graft medial to the right rectus muscle. He incidentally was found to have a nonobstructing left renal calculus as well. He was admitted on 05/12 for surgery, s/p exploratory celiotomy, lysis of adhesions and removal of previous mesh prosthesis on 05/12, He is POD 4, doing well, passing rodney had BM, tolerated regular diet. Dr Hines is ok to discharge Discharge discussed with: patient Time spent discussing smoking cessation with patient: 3 to 10 minutes - Time Spent with Patient Total time spent providing and/or coordinating discharge services: Less than 30 minutes - Discharge Medications Prescriptions: Oxycodone HCl/Acetaminophen [Percocet 5-325 mg Tablet] 1 each PO Q6H PRN 4 Days #16 tablet PRN Reason: Pain Home Medications: Terazosin HCl 10 mg PO HS 01/03/16 [History] Aspirin [Lo-Dose Aspirin EC] 81 mg PO DAILY 04/07/18 [History] Furosemide [Lasix] 80 mg PO BID 04/07/18 [History] Potassium Chloride [Klor-Con Sprinkle] 10 meq PO BID 04/07/18 [History] metOLazone [Zaroxolyn] 2.5 mg PO DAILY 04/07/18 [History] Sennosides/Docusate Sodium [Senna Plus] 1 each PO DAILY PRN #20 tablet 04/09/18 [Rx] Dicyclomine [Bentyl] 20 mg PO QID 05/11/18 [History] Acetaminophen [Tylenol] 650 mg PO Q6HR PRN tablet 05/16/18 [Rx] Oxycodone HCl/Acetaminophen [Percocet 5-325 mg Tablet] 1 each PO Q6H PRN 4 Days #16 tablet 05/16/18 [Rx] Allergies/Adverse Reactions: 3 Allergy/AdvReac Type Severity Reaction Status Date / Time No Known Allergies Allergy Verified 04/04/18 01:13 Date of admission: 05/11/18 23:45 Primary care physician: Chelly Rosa CNP - Constitutional Vitals: Temp Pulse Resp BP Pulse Ox 97.8 F 63 18 126/76 95 05/16/18 08:05 05/16/18 08:05 05/16/18 08:05 05/16/18 08:05 05/16/18 08:05 General appearance: Present: A&O X 3, obese, answers questions appropriately Exam: CONSTITUTIONAL: patient appears as an age appropriate male in no acute distress. EYES Clear sclerae, bilateral pupils are equal, reactive to light. EMOI. RESPIRATORY: No accessory muscle use, bilateral clear to auscultation, no wheezing, no crackles/rales. CARDIOVASCULAR: Regular heart rate, normal S1 and S2, no murmurs GASTROINTESTINAL: bowel sounds present, soft, no tenderness. MUSCULOSKELETAL: Joints in normal range of motion, no clubbing, no edema, no cyanosis. Bilateral peripheral pulses 2+. NEUROLOGIC: CN II to XII are grossly intact, no focal neurological deficit. - Patient Status Disposition: Home, Self-Care Condition: Good Functional capacity at discharge: independent ambulation Overall status at discharge: patient is back to baseline - Discharge Instructions Follow Up With: Rey Hines MD [Non-Partnered Physician] - - Diet and Activity Diet: advance to your usual diet - VTE Documentation of Mechanical Device: Intermittent pneumatic compression device
== END 2018-05-16 11:14 | disposition home or self-care (01) | DRG 336 ==
LOC: 3ANU 18:34 → EMEROO 18:34 → 3ANU 21:54 → SUATTDRO 23:45
PROVIDERS: ADMIT Family Medicine; ATTEND Hospitalist

== ENCOUNTER 2022-06-14 22:53 | Inpatient (IN) ==
[2022-06-14] MEDS ORDERED: Morphine Sulfate 2 MG/ML SYRINGE IVP ONE (23:54)
[2022-06-14] MEDS ORDERED: Ondansetron 4 MG/2 ML VIAL IVP ONE (23:54)
[2022-06-15 00:27] LABS: Basophils # 0.1 K/mcL (0.0-0.2); Basophils % 0.5 %; Eosinophils # 0.1 K/mcL (0.0-0.6); Eosinophils % 0.6 %; Hematocrit 43.2 % (37.5-50.1); Hemoglobin 14.5 g/dL (12.9-16.9); Immature Granulocytes % 0.3 % (0-4); Lymphocytes # 1.4 K/mcL (0.6-4.6); Lymphocytes % 13.2 %; Mean Corpuscular HGB Conc 33.6 g/dL (31.6-35.5); Mean Corpuscular Hemoglobin 32.6 pg (28.0-33.3); Mean Corpuscular Volume 97.1 fL (83.0-100.0); Mean Platelet Volume 10.1 fL (9.4-12.4); Monocytes # 0.7 K/mcL (0.0-1.3); Monocytes % 6.2 %; Neutrophils # 8.6 K/mcL (1.6-8.9); Platelet Count 196 K/mcL (140-400); Red Blood Count 4.45 M/mcL (4.19-5.50); Red Cell Distribution Width 13.5 % (11.5-14.5); Segmented Neutrophils % 79.2 %; White Blood Count 10.8 K/mcL (4.3-11.1)
[2022-06-15 00:29] LABS: Alanine Aminotransferase 16 Units/L (7-52); Albumin 4.2 g/dL (3.5-5.7); Albumin/Globulin Ratio 1.3 (1.1-2.2); Alkaline Phosphatase 40 Units/L (34-104); Aspartate Amino Transferase 18 Units/L (13-39); BUN/Creatinine Ratio 17 (6-26); Bilirubin,Total 0.7 mg/dL (0.3-1.0); Blood Urea Nitrogen 20 mg/dL (8-23); Calcium 9.9 mg/dL (8.6-10.3); Carbon Dioxide 29 mEq/L (23-29); Chloride 99 mEq/L (98-107); Globulin 3.2 g/dL (2.4-3.5); Glucose 171 mg/dL (70-105); Osmolality,Calculated 293 (280-300); Potassium 4.3 mEq/L (3.5-5.1); Sodium 138 mEq/L (136-145); Total Protein 7.4 g/dL (6.4-8.9); eGFR For African Americans > 60 (> 60); eGFR For Non-African Americans > 60 (> 60)
[2022-06-15 02:06] LABS: Bilirubin,Urine Negative (Negative); Blood,Urine Negative (Negative); Clarity,Urine Clear (Clear); Color,Urine Yellow (Yellow); Glucose,Urine (UA) Normal (Normal); Ketones,Urine 40 mg/dL (Negative); Leukocyte Esterase,Urine Negative (Negative); Mucus,Urine Few per lpf (None-Few); Nitrite,Urine Negative (Negative); PH,Urine 6.5 pH Units (5.0-8.0); Protein,Urine 30 mg/dL (Neg-Trace); RBC,Urine 0-3 per hpf (0-3); Specific Gravity,Urine 1.029 (1.010-1.025); Squamous Epithelial Cell,Urine Few per hpf (None-Few); Urobilinogen,Urine Normal (Normal); WBC,Urine 0-3 per hpf (0-3)
[2022-06-15] MEDS ORDERED: Morphine Sulfate 2 MG/ML SYRINGE IVP ONE (02:06)
[2022-06-15] MEDS ORDERED: 0.9 % Sodium Chloride 1,000 ML IV ONE (02:31)
[2022-06-15] MEDS ORDERED: Naloxone 0.4 MG/ML INJ IVP PRN (05:23)
[2022-06-15] MEDS ORDERED: Saliva Stimulant 44.3ml BOTTLE PO PRN (06:57)
[2022-06-15] MEDS ORDERED: D5% in Water 1,000 ML IVC PRN (07:59)
[2022-06-15] MEDS ORDERED: *HR* Dextrose 50 % in Water (Syg) 50 ML SYRINGE IVP PRN (07:59)
[2022-06-15] MEDS ORDERED: Dextrose Gel 15 GM/37.5 ML TUBE PO PRN ×2 (07:59)
[2022-06-15] MEDS ORDERED: Ringers Solution, Lactated 1,000 ML IVC SCH (08:00)
[2022-06-15] MEDS: Furosemide 20 MG/2 ML VIAL IVP SCH (08:57)
[2022-06-15] MEDS: Acetaminophen IV 1,000 MG/100 ML BAG IVPB SCH ×2 (09:02→16:07)
[2022-06-15] MEDS: Insulin LISPRO 300 UNITS/3 ML VIAL SUBQ SCH ×2 (12:55→18:29)
[2022-06-15] MEDS: *HR* Heparin 5,000 UNIT/ML VIAL SQ SCH ×2 (16:07→20:12)
[2022-06-16] MEDS: Acetaminophen IV 1,000 MG/100 ML BAG IVPB SCH ×3 (01:41→16:11)
[2022-06-16] MEDS: Insulin LISPRO 300 UNITS/3 ML VIAL SUBQ SCH ×4 (01:42→16:12)
[2022-06-16 03:27] LABS: Basophils % 0.5 %; Eosinophils # 0.2 K/mcL (0.0-0.6); Eosinophils % 1.8 %; Hematocrit 41.6 % (37.5-50.1); Hemoglobin 13.8 g/dL (12.9-16.9); Immature Granulocytes % 0.4 % (0-4); Lymphocytes # 1.8 K/mcL (0.6-4.6); Lymphocytes % 21.9 %; Mean Corpuscular HGB Conc 33.2 g/dL (31.6-35.5); Mean Corpuscular Hemoglobin 32.4 pg (28.0-33.3); Mean Corpuscular Volume 97.7 fL (83.0-100.0); Mean Platelet Volume 9.9 fL (9.4-12.4); Monocytes # 0.6 K/mcL (0.0-1.3); Monocytes % 7.7 %; Neutrophils # 5.5 K/mcL (1.6-8.9); Platelet Count 170 K/mcL (140-400); Red Blood Count 4.26 M/mcL (4.19-5.50); Red Cell Distribution Width 13.6 % (11.5-14.5); Segmented Neutrophils % 67.7 %; White Blood Count 8.1 K/mcL (4.3-11.1)
[2022-06-16 03:45] LABS: Alanine Aminotransferase 31 Units/L (7-52); Albumin 3.9 g/dL (3.5-5.7); Albumin/Globulin Ratio 1.4 (1.1-2.2); Alkaline Phosphatase 35 Units/L (34-104); Aspartate Amino Transferase 34 Units/L (13-39); BUN/Creatinine Ratio 20 (6-26); Blood Urea Nitrogen 22 mg/dL (8-23); Calcium 8.9 mg/dL (8.6-10.3); Carbon Dioxide 33 mEq/L (23-29); Chloride 98 mEq/L (98-107); Globulin 2.7 g/dL (2.4-3.5); Glucose 139 mg/dL (70-105); Magnesium 2.1 mg/dL (1.6-2.6); Osmolality,Calculated 296 (280-300); Phosphorous 3.4 mg/dL (2.7-4.5); Potassium 3.8 mEq/L (3.5-5.1); Sodium 140 mEq/L (136-145); Total Protein 6.6 g/dL (6.4-8.9); eGFR For African Americans > 60 (> 60); eGFR For Non-African Americans > 60 (> 60)
[2022-06-16] MEDS: *HR* Heparin 5,000 UNIT/ML VIAL SQ SCH ×3 (04:40→20:38)
[2022-06-16] MEDS: Furosemide 20 MG/2 ML VIAL IVP SCH (07:56)
[2022-06-16] MEDS: Ondansetron 4 MG/2 ML VIAL IVP PRN ×2 (14:00→22:58)
[2022-06-17] MEDS: Acetaminophen IV 1,000 MG/100 ML BAG IVPB SCH ×3 (00:03→17:09)
[2022-06-17] MEDS: Insulin LISPRO 300 UNITS/3 ML VIAL SUBQ SCH ×4 (00:04→18:41)
[2022-06-17] MEDS ORDERED: *HR* LORazepam 2 MG/ML VIAL IVP ONE (02:04)
[2022-06-17] MEDS: *HR* Heparin 5,000 UNIT/ML VIAL SQ SCH ×3 (04:57→21:38)
[2022-06-17 06:56] LABS: Basophils % 0.3 %; Eosinophils # 0.1 K/mcL (0.0-0.6); Eosinophils % 1.4 %; Hematocrit 43.9 % (37.5-50.1); Hemoglobin 14.6 g/dL (12.9-16.9); Immature Granulocytes % 0.3 % (0-4); Lymphocytes # 1.7 K/mcL (0.6-4.6); Lymphocytes % 19.3 %; Mean Corpuscular HGB Conc 33.3 g/dL (31.6-35.5); Mean Corpuscular Hemoglobin 32.4 pg (28.0-33.3); Mean Corpuscular Volume 97.3 fL (83.0-100.0); Mean Platelet Volume 9.9 fL (9.4-12.4); Monocytes # 0.8 K/mcL (0.0-1.3); Monocytes % 8.9 %; Neutrophils # 6.2 K/mcL (1.6-8.9); Platelet Count 183 K/mcL (140-400); Red Blood Count 4.51 M/mcL (4.19-5.50); Red Cell Distribution Width 13.6 % (11.5-14.5); Segmented Neutrophils % 69.8 %; White Blood Count 8.9 K/mcL (4.3-11.1)
[2022-06-17] MEDS: Ondansetron 4 MG/2 ML VIAL IVP PRN (07:10)
[2022-06-17 07:19] LABS: BUN/Creatinine Ratio 24 (6-26); Blood Urea Nitrogen 26 mg/dL (8-23); Calcium 9.1 mg/dL (8.6-10.3); Carbon Dioxide 31 mEq/L (23-29); Chloride 98 mEq/L (98-107); Glucose 149 mg/dL (70-105); Osmolality,Calculated 298 (280-300); Potassium 3.6 mEq/L (3.5-5.1); Sodium 140 mEq/L (136-145); eGFR For African Americans > 60 (> 60); eGFR For Non-African Americans > 60 (> 60)
[2022-06-17] MEDS: 0.9 % Sodium Chloride 1,000 ML IVC SCH ×2 (10:46→21:38)
[2022-06-18] MEDS: Acetaminophen IV 1,000 MG/100 ML BAG IVPB SCH ×2 (00:37→09:36)
[2022-06-18] MEDS: Insulin LISPRO 300 UNITS/3 ML VIAL SUBQ SCH ×2 (01:10→05:35)
[2022-06-18 02:45] LABS: Basophils % 0.4 %; Eosinophils # 0.1 K/mcL (0.0-0.6); Eosinophils % 1.3 %; Hematocrit 39.4 % (37.5-50.1); Hemoglobin 13.1 g/dL (12.9-16.9); Immature Granulocytes % 0.4 % (0-4); Lymphocytes # 2.3 K/mcL (0.6-4.6); Lymphocytes % 22.2 %; Mean Corpuscular HGB Conc 33.2 g/dL (31.6-35.5); Mean Corpuscular Hemoglobin 32.3 pg (28.0-33.3); Mean Corpuscular Volume 97.3 fL (83.0-100.0); Mean Platelet Volume 9.8 fL (9.4-12.4); Monocytes % 9.3 %; Neutrophils # 6.9 K/mcL (1.6-8.9); Platelet Count 178 K/mcL (140-400); Red Blood Count 4.05 M/mcL (4.19-5.50); Red Cell Distribution Width 13.8 % (11.5-14.5); Segmented Neutrophils % 66.4 %; White Blood Count 10.4 K/mcL (4.3-11.1)
[2022-06-18 03:02] LABS: Blood Urea Nitrogen 25 mg/dL (8-23); Calcium 8.5 mg/dL (8.6-10.3); Carbon Dioxide 29 mEq/L (23-29); Chloride 100 mEq/L (98-107); Glucose 159 mg/dL (70-105); Osmolality,Calculated 294 (280-300); Potassium 3.3 mEq/L (3.5-5.1); Sodium 138 mEq/L (136-145)
[2022-06-18 04:22] LABS: BUN/Creatinine Ratio 22 (6-26); eGFR For African Americans > 60 (> 60); eGFR For Non-African Americans > 60 (> 60)
[2022-06-18] MEDS: *HR* Heparin 5,000 UNIT/ML VIAL SQ SCH (05:32)
[2022-06-18 07:47] VITALS: BP 135/74; PULSE 92; TEMP 97.9; O2SAT 98
== END 2022-06-18 10:30 | disposition home or self-care (01) | DRG 389 ==
LOC: EMEROOARM 22:53 → 3NENU 22:53 → SUATTDRO 06-15 02:54 → 3NENU 06-15 03:53
PROVIDERS: ADMIT Internal Medicine; ATTEND Internal Medicine